=== PATIENT | male | born 1940 | race Two or more races ===

== ENCOUNTER 2020-09-20 00:36 | Inpatient (IN) | payer MEDICARE, OTHER ==
[2020-09-20] MEDS ORDERED: NITROGLYCERIN SL TABS 0.4 MG TAB SUBLINGUAL PRN ×2 (01:17→07:33)
[2020-09-20] MEDS ORDERED: MORPHINE SULFATE 4 MG/ML SYRINGE IV PRN (01:17)
[2020-09-20] MEDS ORDERED: ASPIRIN 81 MG PO STA (01:17)
[2020-09-20] MEDS ORDERED: IPRATROPIUM-ALBUTEROL 3 ML NEB INHALATION PRN (01:19)
[2020-09-20] MEDS ORDERED: HEPARIN SOD,PORK IN 0.45% NACL 25,000 UNIT in 0.45% NACL 1 250ML.BAG IV SCH (01:30)
[2020-09-20] MEDS ORDERED: AZITHROMYCIN 500 MG in SODIUM CHLORIDE 0.9% 250 ML IVPB ONE (01:30)
--- NOTE | 2020-09-20 01:42 | ED ---
Recheck HPI - General Chief Complaint: Chest Pain Stated Complaint: Chest Pain Time Seen by Provider: 09/20/20 00:38 Source: patient, EMS, old records reviewed Mode of arrival: EMS Limitations: no limitations - History of Present Illness Initial Comments: This is an 80-year-old male DF for evaluation patient Dese as a recheck and reevaluation in his transfer patient, patient presenting for increasing troponin positive pneumonia. On arrival patient has no complaints no chest pain no shortness of breath MD Complaint: abnormal lab (Elevated troponin) -: hour(s) Returns Today for: Called Because of Abnormal Lab/Test Symptoms Since Prior Visit: worsening pain (No new pain) Associated Symptoms: none Treatments Prior to Arrival: other (Patient also told he has pneumonia) - Related Data Allergies Allergy/AdvReac Type Severity Reaction Status Date / Time No Known Allergies Allergy Verified 09/20/20 01:08 Review of Systems ROS Statement: Those systems with pertinent positive or pertinent negative responses have been documented in the HPI. ROS Other: All systems not noted in ROS Statement are negative. Past Medical History Past Medical History: No Reported History Past Surgical History: No Surgical Hx Reported Past Psychological History: No Psychological Hx Reported Smoking Status: Never smoker Past Alcohol Use History: None Reported Past Drug Use History: None Reported General Exam Limitations: no limitations General appearance: alert, in no apparent distress Head exam: Present: atraumatic, normocephalic, normal inspection Eye exam: Present: normal appearance, PERRL, EOMI. Absent: scleral icterus, conjunctival injection, periorbital swelling ENT exam: Present: normal exam, mucous membranes moist Neck exam: Present: normal inspection. Absent: tenderness, meningismus, lymphadenopathy Respiratory exam: Present: normal lung sounds bilaterally. Absent: respiratory distress, wheezes, rales, rhonchi, stridor Cardiovascular Exam: Present: regular rate, normal rhythm, normal heart sounds. Absent: systolic murmur, diastolic murmur, rubs, gallop, clicks GI/Abdominal exam: Present: soft, normal bowel sounds. Absent: distended, tenderness, guarding, rebound, rigid Extremities exam: Present: normal inspection, full ROM, normal capillary refill. Absent: tenderness, pedal edema, joint swelling, calf tenderness Back exam: Present: normal inspection Neurological exam: Present: alert, oriented X3, CN II-XII intact Psychiatric exam: Present: normal affect, normal mood Skin exam: Present: warm, dry, intact, normal color. Absent: rash Course Vital Signs 09/20/20 01:01 Temperature 98.0 F Pulse Rate 76 Respiratory 16 Rate Blood Pressure 144/76 O2 Sat by Pulse 100 Oximetry - Reevaluation(s) Reevaluation #1: 09/20/20 01:53 Medical records reviewed Reevaluation #2: 09/20/20 01:53 Spoke with patient regarding plan of care Medical Decision Making - Medical Decision Making 80 male DF for evaluation patient Dese for evaluation of not feeling well. Patient is diagnosis of pneumonia and has elevated troponin, will admit for cardiology to evaluate and treatment of pneumonia - EKG Data -: EKG Interpreted by Me (EKG is sinus rhythm 65 AR 182 QRS 76 QTC 453) Disposition Clinical Impression: Acute non-ST elevation myocardial infarction (NSTEMI), Community acquired shanika terial pneumonia Disposition: ADMITTED IP TO THIS HOSP Condition: Fair Is patient prescribed a controlled substance at d/c from ED?: No
--- NOTE | 2020-09-20 04:05 | P.HPIM ---
History of Present Illness H&P Date: 09/20/20 Chief Complaint: Atypical chest pain 80-year-old male with history of BPH Patient transferred from another facility for cardiac workup. Patient was working in his yard today when suddenly felt chest pressure he describes it as heaviness retrosternal radiating to both sides happen suddenly and then kept getting worse to the point that he had stopped working and rest he called his sister who suggested that he takes 4 tabs of aspirin and seeks medical attention. He felt breathing with heavy during that however he denies any wheezing denies any fevers or chills denies any associated dizziness lightheadedness or palpitations denies any profuse sweating nausea or vomiting. He describes chronic sporadic cough with nothing suggestive of upper respiratory infection symptoms patient also denies any GI bleeding. He does report some ongoing trouble with his urine which she thinks is due to his history of prostate hyperplasia. At the other facility initial EKG showed normal sinus rhythm and initial blood work showing elevated ESR, potassium of 3.2 and hemoglobin of 11.9, again he denies any GI bleeding Initial troponins were 0.03 and then follow-up went up to 0.35 Imaging of the chest showed possible infiltrates in the lower aspect of the right upper lobe Currently patient feels comfortable denies any ongoing chest pain he denies any cardiac workup in the past denies any episodes suggestive of angina or exertional dyspnea Review of Systems Pertinent positives as noted in HPI. All other systems were reviewed and are negative Past Medical History Past Medical History: No Reported History Additional Past Medical History / Comment(s): BPH Past Surgical History: No Surgical Hx Reported Past Psychological History: No Psychological Hx Reported Smoking Status: Never smoker Past Alcohol Use History: None Reported Past Drug Use History: None Reported - Past Family History Family Additional Family Medical History / Comment(s): Father with heart disease Medications and Allergies Allergies Allergy/AdvReac Type Severity Reaction Status Date / Time No Known Allergies Allergy Verified 09/20/20 01:08 Physical Exam Vitals: Vital Signs Temp Pulse Resp BP Pulse Ox 09/20/20 01:01 98.0 F 76 16 144/76 100 Intake and Output 09/19/20 09/19/20 09/20/20 14:59 22:59 06:59 Other: Weight 61.235 kg Constitutional: No acute distress, conversant, pleasant Eyes: Anicteric sclerae, moist conjunctiva, Pupils equal round reactive to light ENMT: NC/AT Oropharynx clear, no erythema, or exudates Neck: Supple, FROM, no masses, or JVD No carotid bruits No thyromegaly Lungs: Clear to auscultation Clear to percussion Normal respiratory effort, no accessory muscle use Cardiovascular: Heart regular in rate and rhythm, No murmurs, gallops, or rubs No peripheral edema Abdominal: Soft Nontender, no guarding, rebound or rigidity Abdomen moving with respiration Normoactive bowel sounds No hepatomegaly, No splenomegaly No palpable mass No abdominal wall hernia noted Skin: Normal temperature, tone, texture, turgor No induration No subcutaneous nodules No rash, lesions No ulcers Extremities: No digital cyanosis No clubbing Pedal pulses intact and symmetrical Radial pulses intact and symmetrical No calf tenderness Psychiatric: Alert and oriented to person, place and time Appropriate affect fair judgement Neuro Muscles Strength 5/5 in all 4 extremities Sensation to light touch grossly present throughout Cranial nerves II-XII grossly intact No focal sensory deficits Lymphatics: no palpable cervical or supraclavicular , or inguinal lymph nodes Assessment and Plan Assessment: NSTEMI Cardiology consult telecommunications network engineer Trend troponins Patient started on heparin drip Aspirin, nitro Atorvastatin Check lipid profile Monitor vital signs Pain control with opiates if needed Resume all medications for BPH, Flomax Discontinue antibiotics patient has no leukocytosis no fever he denies any symptoms suggestive of upper respiratory infection Computed tomography scan suggested some incidental finding of 8 mm nodules in the lower part of the right upper lobe consider outpatient follow-up CODE STATUS: Full code DVT prophylaxis: On heparin drip Discussed with: Patient, ER, RN Anticipated length of stay < than [address]: home A total of 65 minutes was spent on the care of this complex patient more than 50% of the time was spent in counseling and care coordination.
[2020-09-20 05:28] LABS: Basophils # (A) 0.1 k/uL (0-0.2); Basophils % (A) 1 %; Eosinophils # (A) 0.3 k/uL (0-0.7); Eosinophils % (A) 5 %; HCT 33.5 % (39.0-53.0); HGB 11.4 gm/dL (13.0-17.5); Lymphocytes # (A) 1.7 k/uL (1.0-4.8); Lymphocytes % (A) 27 %; MCH 29.9 pg (25.0-35.0); MCHC 33.9 g/dL (31.0-37.0); MCV 88.2 fL (80.0-100.0); Mean Platelet Volume 8.2; Monocytes # (A) 0.5 k/uL (0-1.0); Monocytes % (A) 8 %; Neutrophils # (A) 3.7 k/uL (1.3-7.7); Neutrophils % (A) 58 %; Platelet Count 134 k/uL (150-450); RDW 12.9 % (11.5-15.5); WBC 6.4 k/uL (3.8-10.6)
[2020-09-20 05:58] LABS: ALT 15 U/L (4-49); AST 31 U/L (17-59); African American GFR (CKD) >90 (>60 ml/min/1.73 sqM); Albumin 3.1 g/dL (3.5-5.0); Alkaline Phosphatase 76 U/L (38-126); Anion Gap 3 mmol/L; Blood Urea Nitrogen 19 mg/dL (9-20); Calcium 8.8 mg/dL (8.4-10.2); Carbon Dioxide 27 mmol/L (22-30); Chloride 111 mmol/L (98-107); Glucose 90 mg/dL (74-99); Non-African American GFR(CKD) 85 (>60 ml/min/1.73 sqM); Potassium 3.9 mmol/L (3.5-5.1); Sodium 141 mmol/L (137-145); Total Bilirubin 0.2 mg/dL (0.2-1.3)
[2020-09-20] MEDS ORDERED: ALPRAZolam 0.25 MG TAB PO PRN (07:33)
[2020-09-20] MEDS ORDERED: SODIUM CHLORIDE 0.9% 1,000 ML in EMPTY BAG 1 BAG IV ONE (07:33)
[2020-09-20] MEDS ORDERED: ASPIRIN 325 MG TAB PO STA (07:33)
[2020-09-20] MEDS ORDERED: ATORVASTATIN 80 MG TAB PO STA (07:33)
[2020-09-20] MEDS: METOPROLOL TARTRATE 25 MG TAB PO SCH ×2 (08:05→20:22)
[2020-09-20] MEDS ORDERED: ATORVASTATIN 40 MG TAB PO SCH (09:00)
[2020-09-20] MEDS ORDERED: LIDOCAINE 1% INJ 10MG/ML (20 ML MDV) ONE (10:28)
[2020-09-20] MEDS ORDERED: VERAPAMIL 2.5 MG/ML 2 ML AMP ONE (10:28)
[2020-09-20] MEDS ORDERED: HEPARIN SODIUM 1,000 UN/ML (10ML VL) ONE (10:29)
[2020-09-20] MEDS ORDERED: IV FLUID CONTINUATION 1,000 ML IV ONE (10:32)
[2020-09-20 10:35] VITALS: BMI 21.5
[2020-09-20] MEDS ORDERED: MIDAZOLAM 2 MG/2 ML VIAL IVP ONE (10:46)
[2020-09-20] MEDS ORDERED: LIDOCAINE 1% INJ 10MG/ML (20 ML MDV) SQ ONE (10:52)
[2020-09-20] MEDS: VERAPAMIL SYRINGE (5 MG/10 ML) INTRAARTER ONE ×2 (11:00→11:53)
[2020-09-20] MEDS ORDERED: HYDROmorphone 0.5 MG/0.5 ML SYRINGE IVP ONE ×3 (11:29→12:05)
[2020-09-20] MEDS ORDERED: IOPAMIDOL-370 100ML BTL INJ ONE ×2 (11:30→11:52)
[2020-09-20] MEDS: NITROGLYCERIN 1000MCG/10ML SYRINGE INTRACORON ONE ×2 (11:36→11:52)
--- NOTE | 2020-09-20 11:38 | ECHOF ---
Referral Reason:Elevated Troponin MEASUREMENTS -------- HEIGHT: 167.6 cm WEIGHT: 60.3 kg BP: 111/59 RVIDd: 3.3 cm (< 3.3) IVSd: 1.0 cm (0.6 - 1.1) LVIDd: 4.6 cm (3.9 - 5.3) LVPWd: 1.2 cm (0.6 - 1.1) IVSs: 1.5 cm LVIDs: 3.1 cm LVPWs: 1.5 cm LA Diam: 3.5 cm (2.7 - 3.8) LAESV Index (A-L): 31.55 ml/m Ao Diam: 3.2 cm (2.0 - 3.7) AV Cusp: 1.7 cm (1.5 - 2.6) MV EXCURSION: 13.341 mm (> 18.000) MV EF SLOPE: 60 mm/s (70 - 150) EPSS: 0.7 cm MV E Xavier: 1.32 m/s MV DecT: 320 ms MV A Xavier: 1.30 m/s MV E/A Ratio: 1.02 RAP: 5.00 mmHg RVSP: 24.33 mmHg TAPSE: 19.91 mm FINDINGS -------- Resting bradycardia (HR<60bpm). This was a technically good study. The left ventricular size is normal. There is borderline concentric left ventricular hypertrophy. Overall left ventricular systolic function is normal with, an EF between 60 - 65 %. The right ventricle is mildly enlarged. LA is midly dilated 29-33ml/m2. The right atrium is normal in size. Interatrial and interventricular septum intact. There is mild aortic valve sclerosis. Mild mitral regurgitation is present. Mild tricuspid regurgitation present. Right ventricular systolic pressure is normal at < 35 mmHg. There is no pulmonic regurgitation present. The aortic root size is normal. Normal inferior vena cava with normal inspiratory collapse consistent with estimated right atrial pre ssure of 5 mmHg. There is no pericardial effusion. CONCLUSIONS -------- 1. The left ventricular size is normal. 2. There is borderline concentric left ventricular hypertrophy. 3. Overall left ventricular systolic function is normal with, an EF between 60 - 65 %. 4. The right ventricle is mildly enlarged. 5. LA is midly dilated 29-33ml/m2. 6. There is mild aortic valve sclerosis. 7. Mild mitral regurgitation is present. 8. Mild tricuspid regurgitation present. 9. There is no pericardial effusion. CERTIFIED BENCH JEWELER TECHNICIAN: Dulce Kamara RDCS
[2020-09-20] MEDS ORDERED: CLOPIDOGREL 75 MG TAB ONE (11:57)
--- NOTE | 2020-09-20 12:01 | CONS ---
CONSULTATION HISTORY: This is an 80-year-old gentleman who was transferred from [facility]. Apparently he was doing some physical work outside which patient describes as very light the artwork, when he had some heaviness and pressure in the chest radiating to both upper extremities. He then stopped work, went called his sister, advised to take 4 aspirins and he went to the emergency room. Initial troponin was elevated and he was transferred here. He is comfortable resting at the time of my evaluation, has no chest pain. His troponin has gone up suggestive of non-ST elevation [place]. EKG does not reveal any significant changes. He does not take any medications on a regular basis. Has no significant medical problems on questioning. He is resting comfortably without symptoms. PAST MEDICAL HISTORY: Remarkable for some sporadic cough and URI type symptoms, but no diabetes, hypertension, myocardial infarction or CVA. SOCIAL HISTORY: History patient is not a smoker. Does not consume alcohol. ALLERGIES: None. MEDICATIONS: No prescription medications. PHYSICAL EXAMINATION: On examination, blood pressure is 118/70, pulse rate is about 80 per minute regular HEENT unremarkable. Fundus was not examined by me. Neck is supple. There is no JVD. I do not hear a carotid bruit. Heart exam reveals S1, S2 with a 1/6 ejection systolic murmur at the aortic area. Lungs are clear. Abdomen is soft, nontender. Lower extremities reveal normal pulses. No edema. Central nervous system is normal. EKG revealed a sinus rhythm, no acute changes. LABORATORY DATA: Suggests elevated troponin up to 1.4 and subsequent one at 1.2. Other labs are acceptable. Potassium was low but has been supplemented. IMPRESSION: 1. Acute non ST elevation [place]. 2. No evidence of any other significant risk factors. RECOMMENDATIONS: I recommend that we continue IV heparin, add a beta renato, reduce the aspirin to 81 mg daily, perform echocardiogram and proceed with cardiac catheterization. The rationale, risks, benefits, options related to cardiac cath were explained to the patient. He understands all details and wishes to proceed with the procedure which will be performed today. MMODL / IJN: [id number] /
[2020-09-20] MEDS ORDERED: CLOPIDOGREL 75 MG TAB PO ONE (12:02)
--- NOTE | 2020-09-20 12:50 | CC ---
CARDIAC CATHETERIZATION REPORT DATE OF SERVICE: 09/20/2020. PROCEDURE: 1. Left heart catheterization and coronary angiography. 2. PTCA and stenting of proximal and mid circumflex with a drug-eluting stent. PERFORMED BY: Dr. Brynn Sweeney. SEDATION: Moderate conscious sedation time was 70 minutes. Patient was administered Versed. Oxygen saturation, hemodynamics and EKG were monitored closely. CLINICAL INFORMATION: Mr. Hira Anderson is 80-year-old gentleman without significant past medical history. He came into the hospital with exertional chest pain without significant EKG changes, but had troponin elevation. Clinical picture was that of non-ST elevation [place]. Because of ongoing episodes of chest tightness, I recommended coronary angiography. Risks, benefits, options, rationale were explained. There was no family available and patient did not wish that I should call any family member. PROCEDURE NOTE: Under local anesthesia and strict aseptic precautions, a 6-Welsh introducer was placed in the right radial artery. The brachial and axillary artery area had a lot of tortuosity and had difficulty getting across in the axillary area. However after straightening the arm I was able to get beyond and I performed coronary angiography as well as checked LV pressures using the right Harish catheter and a right standard right Harish catheter and a 3.5 left Harish catheter. Following this, I noted the patient had a significant lesion in the proximal and mid circumflex and I performed PCI of these 2 lesions uneventfully. The sheath was taken out and patient was sent to the room in a stable condition after applying a TR band with saturation of the fingers of the right hand of 94%. Results were discussed with the patient, but there were no other family members available and we could not reach his son whose phone number was finally available. CARDIAC CATHETERIZATION FINDINGS: The left ventricular end-diastolic pressure was about 10 mmHg without any gradient across aortic valve. CORONARY ANGIOGRAPHY FINDINGS: RIGHT CORONARY ARTERY: Subselective injection was performed however injections were decent. There is no significant lesion in the RCA. There is a mid portion of about 30- 40 percent but ostium of the RCA is free of significant disease and distally bifurcates into a large PDA and PLV, both of which have minor irregularities. Mid RCA therefore has a 35% to 40% lesion which does not appear to be significant in multiple views, although the injections were subselective. LEFT MAIN CORONARY ARTERY: This is a long vessel free of significant disease. Distally, there is about a 15-20 percent narrowing and it bifurcates into LAD and circumflex. LEFT ANTERIOR DESCENDING CORONARY ARTERY: Good caliber vessel gives off a large diagonal branch proximally, several septal branches runs all the way to the apex supplying a sizable amount of myocardium. There is 30-40 percent mild irregularities noted throughout the LAD system. LEFT POSTERIOR CIRCUMFLEX CORONARY ARTERY: Nondominant vessel but large in caliber and distribution. Very proximally there is a 90% stenosis and again midportion there is another 90% stenosis and it gives off an obtuse marginal branch which is small. Distal posterolateral branch has minor irregularities no significant disease. Circumflex therefore has 290% stenosis and appeared to be the culprit lesions. Left ventriculogram was not performed. FINAL IMPRESSION: This patient has significant disease involving the nondominant circumflex the proximal and midportion. Circumflex is a large distribution vessel. There are two 90% lesions. LAD has about of 35-40 percent narrowing in the midportion. The RCA subselectively injected but has a 40% lesion in the midportion. Normal filling pressures. No gradient across aortic valve of significance. RECOMMENDATIONS: I recommended PCI of circumflex and proceeded to perform this in the same setting. PCI PROCEDURE DETAILS: The patient received a total of 4000 units of heparin and ACT was 293. A JL3.5 guide catheter was used to cannulate the left coronary artery. A run-through wire was used to cross the lesion. Predilatation was performed with a 2.5 caliber 12 mm NC Trek balloon. I deployed a 12 mm long 2.5 caliber Xience stent in the distal lesion. Excellent angiographic result was achieved. The side branch which came off was a small obtuse marginal branch, but the flow was preserved. The proximal circumflex also had a subtotally occluded small obtuse marginal coming off from the lesion. I deployed a 3.5, 12 mm long Xience stent at 12-13 atmospheres and then post dilated the midportion with an 8 mm long 3.75 caliber NC Trek balloon. Excellent angiographic result was achieved, but the small side branch occluded. Patient had transient chest pain. No hemodynamics issues or EKG changes. Angiographically, the result was excellent with a small side branch occlusion of the proximal lesion, but the distal lesion side branch was very well preserved. Results were discussed with the patient. No family available. He received heparin and 600 mg of Plavix was given. Patient was sent to the room in a stable condition. After the TR band removal saturation the right hand was about 98%. Results were discussed with the patient. No family available. Excellent angiographic result without complication was achieved and 2 drug-eluting stents in the proximal and mid circumflex were deployed without any complication. MMMELISSAL / MARTHAN: [id number] /
[2020-09-20] MEDS: SODIUM CHLORIDE 0.9% 1,000 ML IV SCH (13:03)
[2020-09-20] MEDS: LOSARTAN 50 MG TAB PO SCH (20:22)
[2020-09-20] MEDS: ALPRAZolam 0.5 MG TAB PO PRN (21:00)
[2020-09-20] MEDS ORDERED: AZITHROMYCIN 500 MG in SODIUM CHLORIDE 0.9% 250 ML IVPB SCH (21:00)
[2020-09-21] MEDS: SODIUM CHLORIDE 0.9% 1,000 ML IV SCH (02:00)
[2020-09-21] MEDS: ALPRAZolam 0.5 MG TAB PO PRN (04:38)
[2020-09-21] MEDS ORDERED: HEPARIN SODIUM,PORCINE 10,000 UNIT in SODIUM CHLORIDE 0.9% 1,000 ML IRRIGATION PRN (07:00)
[2020-09-21] MEDS ORDERED: HEPARIN SODIUM,PORCINE 2,500 UNIT in SODIUM CHLORIDE 0.9% 250 ML IRRIGATION PRN (07:00)
[2020-09-21 07:50] LABS: Basophils % (A) 0 %; Eosinophils # (A) 0.2 k/uL (0-0.7); Eosinophils % (A) 2 %; HCT 32.9 % (39.0-53.0); HGB 11.1 gm/dL (13.0-17.5); Lymphocytes # (A) 1.3 k/uL (1.0-4.8); Lymphocytes % (A) 14 %; MCH 30.2 pg (25.0-35.0); MCHC 33.8 g/dL (31.0-37.0); MCV 89.2 fL (80.0-100.0); Monocytes # (A) 0.6 k/uL (0-1.0); Monocytes % (A) 7 %; Neutrophils # (A) 6.5 k/uL (1.3-7.7); Neutrophils % (A) 75 %; Platelet Count 144 k/uL (150-450); RBC 3.69 m/uL (4.30-5.90); RDW 13.2 % (11.5-15.5); WBC 8.7 k/uL (3.8-10.6)
[2020-09-21 08:28] LABS: African American GFR (CKD) >90 (>60 ml/min/1.73 sqM); Anion Gap 4 mmol/L; Blood Urea Nitrogen 21 mg/dL (9-20); Calcium 8.8 mg/dL (8.4-10.2); Carbon Dioxide 25 mmol/L (22-30); Chloride 110 mmol/L (98-107); Glucose 100 mg/dL (74-99); Non-African American GFR(CKD) 85 (>60 ml/min/1.73 sqM); Potassium 3.8 mmol/L (3.5-5.1); Sodium 139 mmol/L (137-145)
[2020-09-21] MEDS ORDERED: POTASSIUM CHLORIDE ER 20 MEQ TAB.ER PO STA (08:37)
[2020-09-21] MEDS: PANTOPRAZOLE 40 MG TABLET PO SCH (08:55)
[2020-09-21] MEDS: CLOPIDOGREL 75 MG TAB PO SCH (08:55)
[2020-09-21] MEDS: METOPROLOL TARTRATE 25 MG TAB PO SCH ×2 (08:55→19:58)
[2020-09-21] MEDS: ATORVASTATIN 80 MG TAB PO SCH (08:55)
[2020-09-21] MEDS: ASPIRIN 81 MG PO SCH (08:56)
[2020-09-21] MEDS ORDERED: ASPIRIN 325 MG TAB PO SCH (09:00)
[2020-09-21 12:39] LABS: Chol/HDL Ratio 4.66
--- NOTE | 2020-09-21 14:09 | P.PN ---
Subjective Progress Note Date: 09/21/20 Patient is doing well today. He was up walking in his room when I saw him. He does not have any complaints. Objective - Vital Signs Vital signs: Vital Signs Temp 98 F 09/21/20 12:00 Pulse 65 09/21/20 12:00 Resp 16 09/21/20 12:00 BP 100/44 09/21/20 12:00 Pulse Ox 99 09/21/20 12:00 Intake & Output 09/20/20 09/21/20 09/21/20 18:59 06:59 18:59 Intake Total 960.579 240 220 Output Total 400 Balance 560.579 240 220 Weight 60.5 kg 60.4 kg Intake: IV 150 Intake, IV Titration 50.579 Amount Heparin Sod,Pork in 0.45% 50.579 NaCl 25,000 unit In 0.45 % NaCl 1 250ml.bag @ 12 UNITS/KG/HR 7.348 mls/hr IV .Q24H NIXON Rx#: [id number] Oral 760 240 220 Output: Urine 400 Other: Voiding Method Toilet Toilet Toilet # Voids 1 4 3 - Exam General: The patient is awake and alert, in no distress Eye: there is normal conjunctiva bilaterally. Neck: The neck is supple, there is no JVD. Cardiovascular: Normal S1-S2, no S3-S4, no murmurs. Respiratory: Lungs clear to auscultation bilaterally Gastrointestinal: Abdomen is soft, nontender Musculoskeletal: There is no pedal edema. Neurological:. Speech is normal. Skin: Skin is warm and dry - Labs CBC & Chem 7: 09/21/20 07:07 09/21/20 07:07 Labs: Abnormal Lab Results - Last 24 Hours (Table) 09/20/20 09/21/20 09/21/20 Range/Units 13:33 07:07 07:07 RBC 3.69 L (4.30-5.90) m/uL Hgb 11.1 L (13.0-17.5) gm/dL Hct 32.9 L (39.0-53.0) % Plt Count 144 L (150-450) k/uL APTT 50.4 H (22.0-30.0) sec Chloride (98-107) mmol/L BUN (9-20) mg/dL Glucose (74-99) mg/dL HDL Cholesterol 32.0 L (40.0-60.0) mg/dL 09/21/20 Range/Units 07:07 RBC (4.30-5.90) m/uL Hgb (13.0-17.5) gm/dL Hct (39.0-53.0) % Plt Count (150-450) k/uL APTT (22.0-30.0) sec Chloride 110 H (98-107) mmol/L BUN 21 H (9-20) mg/dL Glucose 100 H (74-99) mg/dL HDL Cholesterol (40.0-60.0) mg/dL Assessment and Plan Assessment: This is a 80-year-old male with past medical history noted below who presented to the emergency room with chest pressure and pain after doing some yard work. Patient was evaluated in the ER and admitted to the hospital for further management of his medical problems noted below. 1. Non-ST elevation [place], patient treated with optimal medical management. He was seen and evaluated by cardiology. Underwent left heart catheterization with successful 2 stents placement. Continue aspirin and Plavix. Echocardiogram showed preserved ejection fraction with no significant valvular abnormalities 2. Hyperlipidemia, total cholesterol 149, LDL 99. started on Lipitor. 3. Essential hypertension, blood pressure well controlled. Home dose of hydrochlorothiazide was discontinued. 4. Lung nodules: Noted in the right upper lobe on outside hospital computed tomography scan. 8 mm. Follow-up outpatient.
[2020-09-21] MEDS: LOSARTAN 50 MG TAB PO SCH (19:58)
--- NOTE | 2020-09-21 20:12 | PN ---
PROGRESS NOTE DATE OF SERVICE: 09/21/2020. HISTORY: Mr. Anderson is doing well. He had stenting of circumflex vessel performed in 2 areas. No symptoms of significance. Right radial site are clean and dry. Vital signs stable. Complains of some epigastric burning. I will start him on a Protonix. PHYSICAL EXAM: S1-S2 heard normally. Short systolic murmur noted. Lungs are clear. Abdomen and lower extremity exam unchanged. PLAN: Continue current medications, increase activity, add Protonix. Possible discharge tomorrow. MMODL / IJN: [id number] /
[2020-09-22] MEDS: PANTOPRAZOLE 40 MG TABLET PO SCH (06:22)
[2020-09-22] MEDS: ASPIRIN 81 MG PO SCH (08:37)
[2020-09-22] MEDS: CLOPIDOGREL 75 MG TAB PO SCH (08:37)
[2020-09-22] MEDS: METOPROLOL TARTRATE 25 MG TAB PO SCH (08:37)
[2020-09-22] MEDS: ATORVASTATIN 80 MG TAB PO SCH (08:37)
[2020-09-22 08:45] VITALS: RESP 18
[2020-09-22 11:41] VITALS: BP 107/64; PULSE 57; TEMP 98
--- NOTE | 2020-09-22 13:39 | P.DS ---
Providers Date of admission: 09/20/20 01:17 Expected date of discharge: 09/22/20 Attending physician: Denis Umaña MD Consults: 09/20/20 01:17 Consult Physician Urgent Consulting Provider: Ashly Palacios Consult Reason/Comments: nstemi Do you want consulting provider notified?: Yes Primary care physician: Stated None Hospital Course: This is a 80-year-old male with past medical history noted below who presented to the emergency room with chest pressure and pain after doing some yard work. Patient was evaluated in the ER and admitted to the hospital for further management of his medical problems noted below. 1. Non-ST elevation RI, patient treated with optimal medical management. He was seen and evaluated by cardiology. Underwent left heart catheterization with successful 2 stents placement. Continue aspirin and Plavix. Echocardiogram showed preserved ejection fraction with no significant valvular abnormalities 2. Hyperlipidemia, total cholesterol 149, LDL 99. started on Lipitor. 3. Essential hypertension, blood pressure well controlled. Home dose of hydrochlorothiazide was discontinued. 4. Lung nodules: Noted in the right upper lobe on outside hospital computed tomography scan. 8 mm. Follow-up outpatient. Patient will be discharged home in a stable condition. For further details about this hospitalization please refer to the electronic chart. Time spent on discharge > 30 minutes including counseling and coordination of care Patient Condition at Discharge: Fair Plan - Discharge Summary Discharge Rx Participant: No New Discharge Prescriptions: New Losartan [Cozaar] 50 mg PO HS #30 tab Atorvastatin [Lipitor] 40 mg PO HS #30 tablet Aspirin 81 mg PO DAILY #30 chew Metoprolol Tartrate [Lopressor] 25 mg PO BID #60 tab Nitroglycerin Sl Tabs [Nitrostat] 0.4 mg SUBLINGUAL Q5M PRN #3 tab PRN Reason: Chest Pain Clopidogrel [Plavix] 75 mg PO DAILY #30 tab Continue Multivit-Mins/Iron/Folic/Lycop [Centrum Men's Tablet] 1 tab PO DAILY Solifenacin Succinate [Vesicare] 10 mg PO DAILY Latanoprost [Xalatan 0.005%] 1 drop BOTH EYES HS Brimonidine Tartrate/Timolol [Combigan 0.2%-0.5% Eye Drops] 1 drop BOTH EYES BID Mesal/Menth/Camph/Siberian Fir [Vicks Vapoinhaler] 1 spray NASAL DAILY PRN PRN Reason: Congestion Alfuzosin HCl [Alfuzosin HCl ER] 10 mg PO DAILY Tamsulosin [Flomax] 0.4 mg PO HS Melatonin 3 mg PO HS Discontinued Aspirin 324 mg PO ONCE PRN PRN Reason: Chest Pain Hydrochlorothiazide [hydroCHLOROthiazide] 12.5 mg PO DAILY Discharge Medication List Alfuzosin HCl [Alfuzosin HCl ER] 10 mg PO DAILY 09/20/20 [History] Brimonidine Tartrate/Timolol [Combigan 0.2%-0.5% Eye Drops] 1 drop BOTH EYES BID 09/20/20 [History] Latanoprost [Xalatan 0.005%] 1 drop BOTH EYES HS 09/20/20 [History] Melatonin 3 mg PO HS 09/20/20 [History] Mesal/Menth/Camph/Siberian Fir [Dave Vapoinhaler] 1 spray NASAL DAILY PRN 09/20/20 [History] Multivit-Mins/Iron/Folic/Lycop [Centrum Men's Tablet] 1 tab PO DAILY 09/20/20 [History] Solifenacin Succinate [Vesicare] 10 mg PO DAILY 09/20/20 [History] Tamsulosin [Flomax] 0.4 mg PO HS 09/20/20 [History] Aspirin 81 mg PO DAILY #30 chew 09/22/20 [Rx] Atorvastatin [Lipitor] 40 mg PO HS #30 tablet 09/22/20 [Rx] Clopidogrel [Plavix] 75 mg PO DAILY #30 tab 09/22/20 [Rx] Losartan [Cozaar] 50 mg PO HS #30 tab 09/22/20 [Rx] Metoprolol Tartrate [Lopressor] 25 mg PO BID #60 tab 09/22/20 [Rx] Nitroglycerin Sl Tabs [Nitrostat] 0.4 mg SUBLINGUAL Q5M PRN #3 tab 09/22/20 [Rx] Follow up Appointment(s)/Referral(s): Whit Sweeney MD [STAFF PHYSICIAN] - 1 Week (Ensure office is aware that this is a discharge following a heart catheterization and hospital stay.) None,Stated [Primary Care Provider] - 1 Week Patient Instructions/Handouts: *[facility]gery [facility] - After Heart Catheterization - Cartridge Assembler Instructions Discharge Disposition: HOME SELF-CARE
--- NOTE | 2020-09-22 15:05 | PN ---
PROGRESS NOTE This gentleman presented with unstable angina/non ST elevation MN, underwent stenting of circumflex, doing very well post procedure. Right radial site is clean and dry. No chest pain or shortness of breath. EXAMINATION: Vitals are stable, no JVD. S1, S2 heard normally. Lungs are clear. Abdomen and lower extremity exam unchanged. PLAN: Plan is to increase activity, discharge home. I will see him in the office in 1-2 weeks. Advised to continue all medications, particularly dual antiplatelet therapy. MMODL / IJN: [id number] /
== END 2020-09-22 15:00 | disposition home or self-care (01) | DRG 247 ==
LOC: EC 00:36 → 3SCARD 01:17
PROVIDERS: ADMIT Internal Medicine; ATTEND Internal Medicine
PROC: B2111ZZ Fluoroscopy of Multiple Coronary Arteries using Low Osmolar Contrast (ICD-10-PCS; principal; 2020-09-20 10:45)
PROC: 4A023N7 Measurement of Cardiac Sampling and Pressure, Left Heart, Percutaneous Approach (ICD-10-PCS; principal; 2020-09-20 10:45)
PROC: 027035Z Dilation of Coronary Artery, One Artery with Two Drug-eluting Intraluminal Devices, Percutaneous Approach (ICD-10-PCS; principal; 2020-09-20 10:45)
DX: I21.4 Non-ST elevation (NSTEMI) myocardial infarction (principal); D64.9 Anemia, unspecified; E78.5 Hyperlipidemia, unspecified; I10 Essential (primary) hypertension; N40.0 Benign prostatic hyperplasia without lower urinary tract symptoms; Z20.822 Contact with and (suspected) exposure to COVID-19; Z79.02 Long term (current) use of antithrombotics/antiplatelets; Z79.82 Long term (current) use of aspirin; R91.8 Other nonspecific abnormal finding of lung field; Z82.49 Family history of ischemic heart disease and other diseases of the circulatory system
CPT/HCPCS: 80048; 80053; 80061; 84484; 85025; 85730; 87635; 93005; 93306; 93458; 96365; 99285

== ENCOUNTER 2023-10-04 19:23 | Observation (INO) | payer MEDICARE, OTHER ==
--- NOTE | 2023-10-04 19:47 | ED ---
General Adult HPI - General Source: RN notes reviewed <Herberth Rodriguez - Last Filed: 10/04/23 19:51> <Justino Tyler - Last Filed: 10/04/23 23:09> - General Stated complaint: Chest Pain-Transfer Time Seen by Provider: 10/04/23 19:42 - History of Present Illness Initial comments: Quick note 83-year-old male with past medical history significant for coronary artery disease with multiple stents, A-fib on Eliquis, hypertension, hyperlipidemia presented to the ED with a chief complaint of chest pain for 2 days. States he is having intermittent episodes of pain in the middle of his chest lasting for few minutes. Pain does not radiate. No shortness of breath headaches or dizziness. Follows with of cardiology. Patient transferred from [facility] here for further evaluation. Currently denies having chest pain. (Herberth Rodriguez) - Related Data Home Medications Medication Instructions Recorded Confirmed Brimonidine Tartrate/Timolol 1 drop BOTH EYES BID 09/20/20 10/04/23 [Combigan 0.2%-0.5% Eye Drops] Latanoprost [Xalatan 0.005%] 1 drop BOTH EYES HS 09/20/20 10/04/23 Tamsulosin [Flomax] 0.4 mg PO HS 09/20/20 10/04/23 Apixaban [Eliquis] 2.5 mg PO BID 10/04/23 10/04/23 Atorvastatin [Lipitor] 80 mg PO HS 10/04/23 10/04/23 Furosemide [Lasix] 10 mg PO DAILY 10/04/23 10/04/23 Memantine [Namenda] 10 mg PO BID 10/04/23 10/04/23 Nystatin 1 applic TOPICAL BID PRN 10/04/23 10/04/23 Previous Rx's Medication Instructions Recorded Losartan [Cozaar] 50 mg PO HS #30 tab 09/22/20 Allergies Allergy/AdvReac Type Severity Reaction Status Date / Time No Known Allergies Allergy Verified 10/04/23 20:19 Review of Systems ROS Other: All systems not noted in ROS Statement are negative. <Herberth Rodriguez - Last Filed: 10/04/23 19:51> ROS Other: All systems not noted in ROS Statement are negative. <Justino Tyler - Last Filed: 10/04/23 23:09> ROS Statement: Those systems with pertinent positive or pertinent negative responses have been documented in the HPI. Past Medical History Past Medical History: No Reported History Additional Past Medical History / Comment(s): BPH History of Any Multi-Drug Resistant Organisms: None Reported Past Surgical History: No Surgical Hx Reported Past Anesthesia/Blood Transfusion Reactions: No Reported Reaction Past Psychological History: No Psychological Hx Reported Smoking Status: Never smoker Past Alcohol Use History: None Reported Past Drug Use History: None Reported - Past Family History Family Additional Family Medical History / Comment(s): Father with heart disease <Herberth Rodriguez - Last Filed: 10/04/23 19:51> General Exam <Herberth Rodriguez - Last Filed: 10/04/23 19:51> General appearance: alert, in no apparent distress Head exam: Present: atraumatic, normocephalic Eye exam: Present: normal appearance, PERRL ENT exam: Present: normal exam Neck exam: Present: normal inspection. Absent: tenderness, meningismus Respiratory exam: Present: normal lung sounds bilaterally. Absent: respiratory distress, wheezes Cardiovascular Exam: Present: regular rate, normal rhythm GI/Abdominal exam: Present: soft. Absent: distended, tenderness Extremities exam: Present: pedal edema Neurological exam: Present: alert, oriented X3 Psychiatric exam: Present: normal affect, normal mood Skin exam: Present: warm, dry, intact <Justino Tyler - Last Filed: 10/04/23 23:09> - General Exam Comments Initial Comments: Visual Physical Exam Vital signs reviewed General: Well-appearing, nontoxic, no acute distress. Head: Normocephalic, atraumatic Eyes: PERRLA, EOMI ENT: Airway patent Chest: Nonlabored breathing Skin: No visual rash, normal skin tone Neuro: Alert and oriented 3 Musculoskeletal: No gross abnormalities (Herberth Rodriguez) Course Vital Signs 10/04/23 19:47 Temperature 98.1 F Pulse Rate 60 Respiratory 18 Rate Blood Pressure 132/56 O2 Sat by Pulse 98 Oximetry Medical Decision Making <Herberth Rodriguez - Last Filed: 10/04/23 19:51> - Lab Data Result diagrams: 10/04/23 20:07 10/04/23 20:07 <Justino Tyler N - Last Filed: 10/04/23 23:09> - Medical Decision Making Quicknote portion performed. Signed Herberth Rodriguez PA-C (Herberth Rodriguez) Was pt. sent in by a medical professional or institution ([employer], URGENT CARE PHYSICIAN, urgent care, hospital, or half-way...) When possible be specific @ -Sent from outside hospital for cardiology consultation Did you speak to anyone other than the patient for history (EMS, parent, family, police, friend...)? What history was obtained from this source @ -No Did you review nursing and triage notes (agree or disagree)? Why? @ -I reviewed and agree with nursing and triage notes Were old charts reviewed (outside hosp., previous admission, EMS record, old EKG, old radiological studies, urgent care reports/EKG's, half-way records)? Report findings @ -No old charts were reviewed Differential Chest Pain: Stable Angina, Unstable Angina, STEMI, NSTEMI Aortic Dissection, Pneumothorax, Musculoskeletal, Esophageal Spasm GERD, Cholecystitis, Pancreatitis, Zoster, this is not meant to be an all-inclusive list. EKG interpreted by me (3pts min.). @ -[Sinus rhythm with a rate of 61, UT interval 187, QRS duration 84, QTc 426 X-rays interpreted by me (1pt min.). @ -None done CT interpreted by me (1pt min.). @ -None done U/S interpreted by me (1pt. min.). @ -None done What testing was considered but not performed or refused? (CT, X-rays, U/S, labs)? Why? @ -None What meds were considered but not given or refused? Why? @ -None Did you discuss the management of the patient with other professionals (professionals i.e. [employer], URGENT CARE PHYSICIAN, lab, RT, psych nurse, social media content specialist, brick chimney supervisor, teacher, traffic police officer, case sealer)? Give summary @ -No Was smoking cessation discussed for >3mins.? @ -No Was critical care preformed (if so, how long)? @ -No Were there social determinants of health that impacted care today? How? (Homeles sness, low income, unemployed, alcoholism, drug addiction, transportation, low edu. Level, literacy, decrease access to med. care, nursing home, rehab)? @ -No Was there de-escalation of care discussed even if they declined (Discuss DNR or withdrawal of care, Hospice)? DNR status @ -No What co-morbidities impacted this encounter? (DM, HTN, Smoking, COPD, CAD, Cancer, CVA, ARF, Chemo, Hep., AIDS, mental health diagnosis, sleep apnea, morbid obesity)? @ -Coronary artery disease Was patient admitted / discharged? Hospital course, mention meds given and route, prescriptions, significant lab abnormalities, going to OR and other pertinent info. @Patient transferred from outside hospital for evaluation of chest pain. He is chest pain-free at the time my evaluation. His EKG is sinus rhythm without ST segment elevation. Laboratory studies are repeated including CBC, CMP, troponin. Troponin continues to be negative. He will be observed, admitted to internal medicine with cardiology on consultation. Undiagnosed new problem with uncertain prognosis? @ -No Drug Therapy requiring intensive monitoring for toxicity (Heparin, Nitro, Insulin, Cardizem)? @ -No Were any procedures done? @ -No Diagnosis/symptom? @ -[Chest pain Acute, or Chronic, or Acute on Chronic? @ -Acute Uncomplicated (without systemic symptoms) or Complicated (systemic symptoms)? @ -[default Side effects of treatment? @ -No Exacerbation, Progression, or Severe Exacerbation? @ -No Poses a threat to life or bodily function? How? (Chest pain, USA, SC, pneumonia, PE, COPD, DKA, ARF, appy, cholecystitis, CVA, Diverticulitis, Homicidal, Suicidal, threat to staff... and all critical care pts) @, ACS (Justino Tyler) - Lab Data Lab Results 10/04/23 10/04/23 10/04/23 Range/Units 20:07 20:07 20:07 WBC 9.0 (3.8-10.6) k/uL RBC 3.96 L (4.30-5.90) m/uL Hgb 11.8 L (13.0-17.5) gm/dL Hct 37.1 L (39.0-53.0) % MCV 93.6 (80.0-100.0) fL MCH 29.7 (25.0-35.0) pg MCHC 31.7 (31.0-37.0) g/dL RDW 13.1 (11.5-15.5) % Plt Count 129 L (150-450) k/uL MPV 9.3 Neutrophils % 65 % Lymphocytes % 20 % Monocytes % 7 % Eosinophils % 5 % Basophils % 1 % Neutrophils # 5.9 (1.3-7.7) k/uL Lymphocytes # 1.8 (1.0-4.8) k/uL Monocytes # 0.7 (0-1.0) k/uL Eosinophils # 0.4 (0-0.7) k/uL Basophils # 0.1 (0-0.2) k/uL PT 11.4 (10.0-12.5) sec INR 1.0 (<1.2) APTT 28.3 (22.0-30.0) sec Sodium 143 (137-145) mmol/L Potassium 4.2 (3.5-5.1) mmol/L Chloride 115 H (98-107) mmol/L Carbon Dioxide 24 (22-30) mmol/L Anion Gap 4 mmol/L BUN 23 H (9-20) mg/dL Creatinine 0.94 (0.66-1.25) mg/dL Est GFR (CKD-EPI)AfAm 86 (>60 ml/min/1.73 sqM) Est GFR (CKD-EPI)NonAf 75 (>60 ml/min/1.73 sqM) Glucose 94 (74-99) mg/dL Calcium 8.0 L (8.4-10.2) mg/dL Magnesium 2.0 (1.6-2.3) mg/dL Total Bilirubin 0.4 (0.2-1.3) mg/dL AST 31 (17-59) U/L ALT 22 (4-49) U/L Alkaline Phosphatase 99 (38-126) U/L Troponin I (0.000-0.034) ng/mL Total Protein 6.3 (6.3-8.2) g/dL Albumin 3.3 L (3.5-5.0) g/dL 10/04/23 Range/Units 20:07 WBC (3.8-10.6) k/uL RBC (4.30-5.90) m/uL Hgb (13.0-17.5) gm/dL Hct (39.0-53.0) % MCV (80.0-100.0) fL MCH (25.0-35.0) pg MCHC (31.0-37.0) g/dL RDW (11.5-15.5) % Plt Count (150-450) k/uL MPV Neutrophils % % Lymphocytes % % Monocytes % % Eosinophils % % Basophils % % Neutrophils # (1.3-7.7) k/uL Lymphocytes # (1.0-4.8) k/uL Monocytes # (0-1.0) k/uL Eosinophils # (0-0.7) k/uL Basophils # (0-0.2) k/uL PT (10.0-12.5) sec INR (<1.2) APTT (22.0-30.0) sec Sodium (137-145) mmol/L Potassium (3.5-5.1) mmol/L Chloride (98-107) mmol/L Carbon Dioxide (22-30) mmol/L Anion Gap mmol/L BUN (9-20) mg/dL Creatinine (0.66-1.25) mg/dL Est GFR (CKD-EPI)AfAm (>60 ml/min/1.73 sqM) Est GFR (CKD-EPI)NonAf (>60 ml/min/1.73 sqM) Glucose (74-99) mg/dL Calcium (8.4-10.2) mg/dL Magnesium (1.6-2.3) mg/dL Total Bilirubin (0.2-1.3) mg/dL AST (17-59) U/L ALT (4-49) U/L Alkaline Phosphatase (38-126) U/L Troponin I <0.012 (0.000-0.034) ng/mL Total Protein (6.3-8.2) g/dL Albumin (3.5-5.0) g/dL Disposition <Herberth Rodriguez - Last Filed: 10/04/23 19:51> Is patient prescribed a controlled substance at d/c from ED?: No Time of Disposition: 23:09 <Justino Tyler - Last Filed: 10/04/23 23:09> Clinical Impression: Chest pain Disposition: ADMITTED IP TO THIS HOSP Condition: Stable Referrals: None,Stated [Primary Care Provider] - 1-2 days
[2023-10-04 20:22] LABS: Basophils # (A) 0.1 k/uL (0-0.2); Basophils % (A) 1 %; Eosinophils # (A) 0.4 k/uL (0-0.7); Eosinophils % (A) 5 %; HCT 37.1 % (39.0-53.0); HGB 11.8 gm/dL (13.0-17.5); Lymphocytes # (A) 1.8 k/uL (1.0-4.8); Lymphocytes % (A) 20 %; MCH 29.7 pg (25.0-35.0); MCHC 31.7 g/dL (31.0-37.0); MCV 93.6 fL (80.0-100.0); Mean Platelet Volume 9.3; Monocytes # (A) 0.7 k/uL (0-1.0); Monocytes % (A) 7 %; Neutrophils # (A) 5.9 k/uL (1.3-7.7); Neutrophils % (A) 65 %; Platelet Count 129 k/uL (150-450); RBC 3.96 m/uL (4.30-5.90); RDW 13.1 % (11.5-15.5)
[2023-10-04 20:38] LABS: ALT 22 U/L (4-49); AST 31 U/L (17-59); African American GFR (CKD) 86 (>60 ml/min/1.73 sqM); Albumin 3.3 g/dL (3.5-5.0); Alkaline Phosphatase 99 U/L (38-126); Anion Gap 4 mmol/L; Blood Urea Nitrogen 23 mg/dL (9-20); Carbon Dioxide 24 mmol/L (22-30); Chloride 115 mmol/L (98-107); Glucose 94 mg/dL (74-99); Non-African American GFR(CKD) 75 (>60 ml/min/1.73 sqM); Potassium 4.2 mmol/L (3.5-5.1); Sodium 143 mmol/L (137-145); Total Bilirubin 0.4 mg/dL (0.2-1.3); Total Protein 6.3 g/dL (6.3-8.2)
[2023-10-04 20:53] LABS: Partial Thromboplastin Time 28.3 sec (22.0-30.0); Prothrombin Time 11.4 sec (10.0-12.5)
[2023-10-04] MEDS ORDERED: ACETAMINOPHEN TAB 325 MG TAB PO PRN (23:05)
[2023-10-04] MEDS ORDERED: NALOXONE 0.4 MG/ML 1 ML VIAL IV PRN (23:05)
[2023-10-04] MEDS: SODIUM CHLORIDE 0.9% 1,000 ML IV SCH (23:21)
[2023-10-05 01:00] LABS: Appearance,Urine Cloudy (Clear); Bacteria,Urine Rare /hpf; Bilirubin,Urine Negative (Negative); Blood,Urine Negative (Negative); Color,Urine Light Yellow; Glucose,Urine (UA) Negative (Negative); Ketones,Urine Negative (Negative); Leukocyte Esterase,Urine Large (Negative); Mucus,Urine Rare /hpf; Nitrite,Urine Positive (Negative); Protein,Urine Negative (Negative); RBC,Urine 2 /hpf (0-5); Urobilinogen,Urine <2.0 mg/dL (<2.0); WBC,Urine >182 /hpf (0-5)
[2023-10-05] MEDS: APIXABAN 2.5 MG TABLET PO SCH (08:14)
[2023-10-05] MEDS: FUROSEMIDE 10 MG TAB PO SCH (08:14)
[2023-10-05] MEDS: MEMANTINE 10 MG TAB PO SCH (08:14)
[2023-10-05] MEDS ORDERED: NYSTATIN 100,000UNIT/GM CREAM 30 GM TUBE TOPICAL PRN (12:20)
[2023-10-05 12:49] VITALS: PULSE 75
--- NOTE | 2023-10-05 14:25 | P.HPIM ---
History of Present Illness 83-year-old male came with complaints of chest pain mild to moderate still has chest pain in the left lower chest nonradiating no associated shortness of breath lightheadedness diaphoresis. EKG sinus rhythm without any acute ST-T wave changes. Troponins were negative. Patient follows up with Dr. LEEANN Sweeney as an outpatient for cardiology never had any history of heart attack in the past as per the patient but the patient appears to have had a PCI of the circumflex in 2020. Patient denies any recent stress test although not a very reliable historian. Current cardiology evaluated the patient patient is recommended to follow-up with Dr. LEEANN Sweeney as an outpatient without any further workup. But recommending a monitor at the time of discharge. Patient chest pain is nonpleuritic not associate with food REVIEW OF SYSTEMS: CONSTITUTIONAL: No fever, no malaise, no fatigue. HEENT: No recent visual problems or hearing problems. Denied any sore throat. CARDIOVASCULAR: No orthopnea, PND, no palpitations, no syncope. PULMONARY: No shortness of breath, no cough, no hemoptysis. GASTROINTESTINAL: No diarrhea, no nausea, no vomiting, no abdominal pain. NEUROLOGICAL: No headaches, no weakness, no numbness. HEMATOLOGICAL: Denies any bleeding or petechiae. GENITOURINARY: Denies any burning micturition, frequency, or urgency. MUSCULOSKELETAL/RHEUMATOLOGICAL: Denies any joint pain, swelling, or any muscle pain. ENDOCRINE: Denies any polyuria or polydipsia. The rest of the 14-point review of systems is negative. PHYSICAL EXAMINATION: GENERAL: The patient is alert and oriented x3, not in any acute distress. Well developed, well nourished. HEENT: Pupils are round and equally reacting to light. EOMI. No scleral icterus. No conjunctival pallor. Normocephalic, atraumatic. No pharyngeal erythema. No thyromegaly. CARDIOVASCULAR: S1 and S2 present. No murmurs, rubs, or gallops. PULMONARY: Chest is clear to auscultation, no wheezing or crackles. ABDOMEN: Soft, nontender, nondistended, normoactive bowel sounds. No palpable organomegaly. MUSCULOSKELETAL: No joint swelling or deformity. EXTREMITIES: No cyanosis, clubbing, or pedal edema. NEUROLOGICAL: Gross neurological examination did not reveal any focal deficits. SKIN: No rashes. Assessment and plan -Chest pain noncardiac probably musculoskeletal evaluated by cardiology, ruled out unstable angina or acute coronary syndromes patient is being discharged to follow-up with his engineering technician as an outpatient further workup and testing as an outpatient after follow-up with his engineering technician -Coronary artery disease He-history of atrial fibrillation paroxysmal presently sinus rhythm is on Eliquis which was resumed -Benign prostatic hypertrophy -Hyperlipidemia -Hypertension patient blood pressure is low and patient was dizzy when he came in we will cut down the dose of losartan to 25 mg from 50 mg. Patient will be discharged today to follow-up with PCP and cardiology as an outpatient Past Medical History Past Medical History: No Reported History Additional Past Medical History / Comment(s): BPH History of Any Multi-Drug Resistant Organisms: None Reported Past Surgical History: No Surgical Hx Reported Past Anesthesia/Blood Transfusion Reactions: No Reported Reaction Past Psychological History: No Psychological Hx Reported Smoking Status: Never smoker Past Alcohol Use History: None Reported Past Drug Use History: None Reported - Past Family History Family Additional Family Medical History / Comment(s): Father with heart disease Medications and Allergies Home Medications Medication Instructions Recorded Confirmed Type Brimonidine Tartrate/Timolol 1 drop BOTH EYES BID 09/20/20 10/04/23 History [Combigan 0.2%-0.5% Eye Drops] Latanoprost [Xalatan 0.005%] 1 drop BOTH EYES HS 09/20/20 10/04/23 History Tamsulosin [Flomax] 0.4 mg PO HS 09/20/20 10/04/23 History Apixaban [Eliquis] 2.5 mg PO BID 10/04/23 10/04/23 History Atorvastatin [Lipitor] 80 mg PO HS 10/04/23 10/04/23 History Furosemide [Lasix] 10 mg PO DAILY 10/04/23 10/04/23 History Memantine [Namenda] 10 mg PO BID 10/04/23 10/04/23 History Nystatin 1 applic TOPICAL BID PRN 10/04/23 10/04/23 History Losartan [Cozaar] 25 mg PO HS #30 tab 10/05/23 10/04/23 Rx Allergies Allergy/AdvReac Type Severity Reaction Status Date / Time No Known Allergies Allergy Verified 10/04/23 20:19 Physical Exam Vitals: Vital Signs Temp Pulse Resp BP Pulse Ox 10/05/23 12:46 75 18 98 10/05/23 11:00 64 16 126/60 97 10/05/23 07:37 82 16 130/70 96 10/05/23 04:00 56 L 17 116/65 97 10/05/23 00:01 55 L 16 110/55 99 10/04/23 19:47 98.1 F 60 18 132/56 98 Intake and Output 10/04/23 10/05/23 10/05/23 22:59 06:59 14:59 Other: Weight 65.771 kg Results CBC & Chem 7: 10/04/23 20:07 10/04/23 20:07 Labs: Abnormal Lab Results - Last 24 Hours (Table) 10/04/23 10/04/23 10/05/23 Range/Units 20:07 20:07 00:08 RBC 3.96 L (4.30-5.90) m/uL Hgb 11.8 L (13.0-17.5) gm/dL Hct 37.1 L (39.0-53.0) % Plt Count 129 L (150-450) k/uL Chloride 115 H (98-107) mmol/L BUN 23 H (9-20) mg/dL Calcium 8.0 L (8.4-10.2) mg/dL Albumin 3.3 L (3.5-5.0) g/dL Ur Leukocyte Esterase Large H (Negative) Urine WBC >182 H (0-5) /hpf Urine WBC Clumps Rare H (None) /hpf Urine Bacteria Rare H (None) /hpf Urine Mucus Rare H (None) /hpf
--- NOTE | 2023-10-05 14:26 | P.DS ---
Providers Date of admission: 10/04/23 23:05 Attending physician: Nehemias Zimmer Consults: 10/04/23 23:05 Consult Physician Routine Consulting Provider: Ashly Palacios Consult Reason/Comments: CP Do you want consulting provider notified?: Yes Primary care physician: Stated None Hospital Course: 83-year-old male came with complaints of chest pain mild to moderate still has chest pain in the left lower chest nonradiating no associated shortness of breath lightheadedness diaphoresis. EKG sinus rhythm without any acute ST-T wave changes. Troponins were negative. Patient follows up with Dr. LEEANN Sweeney as an outpatient for cardiology never had any history of heart attack in the past as per the patient but the patient appears to have had a PCI of the circumflex in 2020. Patient denies any recent stress test although not a very reliable historian. Current cardiology evaluated the patient patient is recommended to follow-up with Dr. LEEANN Sweeney as an outpatient without any further workup. But recommending a monitor at the time of discharge. Patient chest pain is nonpleuritic not associate with food REVIEW OF SYSTEMS: CONSTITUTIONAL: No fever, no malaise, no fatigue. HEENT: No recent visual problems or hearing problems. Denied any sore throat. CARDIOVASCULAR: No orthopnea, PND, no palpitations, no syncope. PULMONARY: No shortness of breath, no cough, no hemoptysis. GASTROINTESTINAL: No diarrhea, no nausea, no vomiting, no abdominal pain. NEUROLOGICAL: No headaches, no weakness, no numbness. HEMATOLOGICAL: Denies any bleeding or petechiae. GENITOURINARY: Denies any burning micturition, frequency, or urgency. MUSCULOSKELETAL/RHEUMATOLOGICAL: Denies any joint pain, swelling, or any muscle pain. ENDOCRINE: Denies any polyuria or polydipsia. The rest of the 14-point review of systems is negative. PHYSICAL EXAMINATION: GENERAL: The patient is alert and oriented x3, not in any acute distress. Well developed, well nourished. HEENT: Pupils are round and equally reacting to light. EOMI. No scleral icterus. No conjunctival pallor. Normocephalic, atraumatic. No pharyngeal erythema. No thyromegaly. CARDIOVASCULAR: S1 and S2 present. No murmurs, rubs, or gallops. PULMONARY: Chest is clear to auscultation, no wheezing or crackles. ABDOMEN: Soft, nontender, nondistended, normoactive bowel sounds. No palpable organomegaly. MUSCULOSKELETAL: No joint swelling or deformity. EXTREMITIES: No cyanosis, clubbing, or pedal edema. NEUROLOGICAL: Gross neurological examination did not reveal any focal deficits. SKIN: No rashes. Assessment and plan -Chest pain noncardiac probably musculoskeletal evaluated by cardiology, ruled out unstable angina or acute coronary syndromes patient is being discharged to follow-up with his fiber artist as an outpatient further workup and testing as an outpatient after follow-up with his fiber artist -Coronary artery disease He-history of atrial fibrillation paroxysmal presently sinus rhythm is on Eliquis which was resumed -Benign prostatic hypertrophy -Hyperlipidemia -Hypertension patient blood pressure is low and patient was dizzy when he came in we will cut down the dose of losartan to 25 mg from 50 mg. Patient will be discharged today to follow-up with PCP and cardiology as an outpatient Patient Condition at Discharge: Stable Plan - Discharge Summary New Discharge Prescriptions: Continue Latanoprost [Xalatan 0.005%] 1 drop BOTH EYES HS Brimonidine Tartrate/Timolol [Combigan 0.2%-0.5% Eye Drops] 1 drop BOTH EYES BID Nystatin 1 applic TOPICAL BID PRN PRN Reason: rash Atorvastatin [Lipitor] 80 mg PO HS Tamsulosin [Flomax] 0.4 mg PO HS Memantine [Namenda] 10 mg PO BID Apixaban [Eliquis] 2.5 mg PO BID Furosemide [Lasix] 10 mg PO DAILY Changed Losartan [Cozaar] 25 mg PO HS #30 tab Discharge Medication List Brimonidine Tartrate/Timolol [Combigan 0.2%-0.5% Eye Drops] 1 drop BOTH EYES BID 09/20/20 [History] Latanoprost [Xalatan 0.005%] 1 drop BOTH EYES HS 09/20/20 [History] Tamsulosin [Flomax] 0.4 mg PO HS 09/20/20 [History] Apixaban [Eliquis] 2.5 mg PO BID 10/04/23 [History] Atorvastatin [Lipitor] 80 mg PO HS 10/04/23 [History] Furosemide [Lasix] 10 mg PO DAILY 10/04/23 [History] Memantine [Namenda] 10 mg PO BID 10/04/23 [History] Nystatin 1 applic TOPICAL BID PRN 10/04/23 [History] Losartan [Cozaar] 25 mg PO HS #30 tab 10/05/23 [Rx] Follow up Appointment(s)/Referral(s): Whit Sweeney MD [STAFF PHYSICIAN] - 1 Week Travis Nickerson MD [STAFF PHYSICIAN] - 1 Week
--- NOTE | 2023-10-05 14:32 | P.CRDCN ---
History of Present Illness History of present illness: HISTORY OF PRESENTING ILLNESS This is a pleasant 83-year-old with past medical history significant for CAD status post PCI of circumflex 2020, hypertension, hyperlipidemia, paroxysmal atrial fibrillation, BPH. He follows in the office with her ID as well as Dr. Cunningham previously. He states he has been doing okay however has had 2 episodes of chest pain usually lasting for approximately 5-10 minutes. Usually symptoms are random and not associated with any exertion. He had more significant episode and therefore went to emergency department and [place] [facility] and then was transferred to [facility]. Currently he denies any recurrence. He denies any actual palpitations during these episodes. He had prior heart catheterization and stenting 08/2020 and has been well since then. He does also have a diagnosis of atrial fibrillation however cannot actually feel when A. fib is happening. Troponins negative 3. Remains on sinus rhythm on telemetry. REVIEW OF SYSTEMS At the time of my exam: CONSTITUTIONAL: Denies fever or chills. CARDIOVASCULAR: +chest pain, no shortness of breath, orthopnea, PND or palpitations. RESPIRATORY: Denies cough. GASTROINTESTINAL: Denies abdominal pain, diarrhea, constipation, nausea or vomiting. MUSCULOSKELETAL: Denies myalgias. NEUROLOGIC: Denies numbness, tingling or weakness. ENDOCRINE: Denies fatigue, weight change, polydipsia or polyurina. GENITOURINARY: Denies burning, hematuria or urgency with micturation. HEMATOLOGIC: Denies history of anemia or bleeding. PHYSICAL EXAMINATION Vital signs reviewed. CONSTITUTIONAL: No apparent distress. HEENT: Head is normocephalic. Pupils are equal, round. Sclerae anicteric. Mucous membranes of the mouth are moist. No JVD. No carotid bruit. CHEST EXAMINATION: Lungs are clear to auscultation. No chest wall tenderness is noted on palpation or with deep breathing. HEART EXAMINATION: Regular rate and rhythm. S1, S2 heard. No murmurs, gallops or rub. ABDOMEN: Soft, nontender. Positive bowel sounds. EXTREMITIES: 2+ peripheral pulses, no lower extremity edema and no calf tenderness. NEUROLOGIC EXAMINATION: Patient is awake, alert and oriented x3. ASSESSMENT Atypical chest pain, somewhat episodic CAD status post PCI circumflex 2020 Hypertension Paroxysmal atrial fibrillation PLAN Patient having intermittent episodes of chest pain however workup has been unrevealing. Patient very anxious to go home. Discussed possible inpatient stress testing versus outpatient follow-up and patient would prefer outpatient follow-up. We will however set patient up for a 2 week event monitor to evaluate for any A. fib that may be causing some of his chest pain. Follow-up with Dr. Sweeney in 1 week. Past Medical History Past Medical History: No Reported History Additional Past Medical History / Comment(s): BPH History of Any Multi-Drug Resistant Organisms: None Reported Past Surgical History: No Surgical Hx Reported Past Anesthesia/Blood Transfusion Reactions: No Reported Reaction Past Psychological History: No Psychological Hx Reported Smoking Status: Never smoker Past Alcohol Use History: None Reported Past Drug Use History: None Reported - Past Family History Family Additional Family Medical History / Comment(s): Father with heart disease Medications and Allergies Home Medications Medication Instructions Recorded Confirmed Type Brimonidine Tartrate/Timolol 1 drop BOTH EYES BID 09/20/20 10/04/23 History [Combigan 0.2%-0.5% Eye Drops] Latanoprost [Xalatan 0.005%] 1 drop BOTH EYES HS 09/20/20 10/04/23 History Tamsulosin [Flomax] 0.4 mg PO HS 09/20/20 10/04/23 History Apixaban [Eliquis] 2.5 mg PO BID 10/04/23 10/04/23 History Atorvastatin [Lipitor] 80 mg PO HS 10/04/23 10/04/23 History Furosemide [Lasix] 10 mg PO DAILY 10/04/23 10/04/23 History Memantine [Namenda] 10 mg PO BID 10/04/23 10/04/23 History Nystatin 1 applic TOPICAL BID PRN 10/04/23 10/04/23 History Losartan [Cozaar] 25 mg PO HS #30 tab 10/05/23 10/04/23 Rx Allergies Allergy/AdvReac Type Severity Reaction Status Date / Time No Known Allergies Allergy Verified 10/04/23 20:19 Physical Exam Vitals: Vital Signs Temp Pulse Resp BP Pulse Ox 10/05/23 12:46 75 18 98 10/05/23 11:00 64 16 126/60 97 10/05/23 07:37 82 16 130/70 96 10/05/23 04:00 56 L 17 116/65 97 10/05/23 00:01 55 L 16 110/55 99 10/04/23 19:47 98.1 F 60 18 132/56 98 Intake and Output 10/04/23 10/05/23 10/05/23 22:59 06:59 14:59 Other: Weight 65.771 kg Results 10/04/23 20:07 10/04/23 20:07 Cardiac Enzymes 10/04/23 10/04/23 10/05/23 Range/Units 20:07 20:07 00:40 AST 31 (17-59) U/L Troponin I <0.012 <0.012 (0.000-0.034) ng/mL 10/05/23 Range/Units 04:21 AST (17-59) U/L Troponin I <0.012 (0.000-0.034) ng/mL Coagulation 10/04/23 Range/Units 20:07 PT 11.4 (10.0-12.5) sec APTT 28.3 (22.0-30.0) sec CBC 10/04/23 Range/Units 20:07 WBC 9.0 (3.8-10.6) k/uL RBC 3.96 L (4.30-5.90) m/uL Hgb 11.8 L (13.0-17.5) gm/dL Hct 37.1 L (39.0-53.0) % Plt Count 129 L (150-450) k/uL Comprehensive Metabolic Panel 10/04/23 Range/Units 20:07 Sodium 143 (137-145) mmol/L Potassium 4.2 (3.5-5.1) mmol/L Chloride 115 H (98-107) mmol/L Carbon Dioxide 24 (22-30) mmol/L BUN 23 H (9-20) mg/dL Creatinine 0.94 (0.66-1.25) mg/dL Glucose 94 (74-99) mg/dL Calcium 8.0 L (8.4-10.2) mg/dL AST 31 (17-59) U/L ALT 22 (4-49) U/L Alkaline Phosphatase 99 (38-126) U/L Total Protein 6.3 (6.3-8.2) g/dL Albumin 3.3 L (3.5-5.0) g/dL Current Medications Generic Name Dose Route Start Last Admin Trade Name Freq PRN Reason Stop Dose Admin Acetaminophen 650 mg 10/04/23 23:05 Acetaminophen Tab 325 Mg Tab PO Q6HR PRN Mild Pain or Fever > 100.5 Apixaban 2.5 mg 10/05/23 09:00 10/05/23 08:14 Apixaban 2.5 Mg Tablet PO 2.5 mg BID NIXON Administration Protocol Atorvastatin Calcium 80 mg 10/05/23 21:00 Atorvastatin 80 Mg Tab PO HS NIXON Brimonidine Tartrate 1 drops 10/05/23 21:00 Brimonidine Tartrate 0.2% Drops 5 Ml Btl BOTH EYES BID NIXON Furosemide 10 mg 10/05/23 09:00 10/05/23 08:14 Furosemide 10 Mg Tab PO 10 mg DAILY NIXON Administration Latanoprost 1 drops 10/05/23 21:00 Latanoprost 0.005% Ophth Drops 2.5 Ml Btl BOTH EYES HS NIXON Memantine 10 mg 10/05/23 09:00 10/05/23 08:14 Memantine 10 Mg Tab PO 10 mg BID NIXON Administration Naloxone HCl 0.2 mg 10/04/23 23:05 Naloxone 0.4 Mg/Ml 1 Ml Vial IV Q2M PRN Opioid Reversal Nystatin 1 applic 10/05/23 12:20 Nystatin 100,000unit/Gm Cream 30 Gm Tube TOPICAL BID PRN rash Protocol Tamsulosin HCl 0.4 mg 10/05/23 21:00 Tamsulosin 0.4 Mg Cap.Er.24h PO HS NIXON Timolol Maleate 1 drops 10/05/23 21:00 Timolol 0.5% Ophth Drops 5 Ml Btl BOTH EYES BID [facility] Intake and Output 10/04/23 10/05/23 10/05/23 22:59 06:59 14:59 Other: Weight 65.771 kg 10/04/23 20:07 10/04/23 20:07
[2023-10-05 15:15] VITALS: BP 128/71; RESP 16; TEMP 98.6
[2023-10-05] MEDS ORDERED: LATANOPROST 0.005% OPHTH DROPS 2.5 ML BTL BOTH EYES SCH (21:00)
[2023-10-05] MEDS ORDERED: ATORVASTATIN 80 MG TAB PO SCH (21:00)
[2023-10-05] MEDS ORDERED: TAMSULOSIN 0.4 MG CAP.ER.24H PO SCH (21:00)
[2023-10-05] MEDS ORDERED: BRIMONIDINE TARTRATE 0.2% DROPS 5 ML BTL BOTH EYES SCH (21:00)
[2023-10-05] MEDS ORDERED: TIMOLOL 0.5% OPHTH DROPS 5 ML BTL BOTH EYES SCH (21:00)
== END 2023-10-05 15:15 | disposition home or self-care (01) ==
LOC: EC 19:23 → 6NMEDSUR 23:05
PROVIDERS: ADMIT Hospitalist; ATTEND Hospitalist
DX: R07.89 Other chest pain (principal); I25.10 Atherosclerotic heart disease of native coronary artery without angina pectoris; N40.0 Benign prostatic hyperplasia without lower urinary tract symptoms; E78.5 Hyperlipidemia, unspecified; I10 Essential (primary) hypertension; I48.91 Unspecified atrial fibrillation; Z95.5 Presence of coronary angioplasty implant and graft; Z82.49 Family history of ischemic heart disease and other diseases of the circulatory system; Z79.899 Other long term (current) drug therapy; Z79.01 Long term (current) use of anticoagulants
CPT/HCPCS: 99285; 36415; 93005; 93270; 80053; 83735; 84484 ×2; 85025; 85610; 85730; 81001; G0378 ×2

== ENCOUNTER 2023-11-28 13:54 | Inpatient (IN) | payer MEDICARE, OTHER ==
--- NOTE | 2023-11-28 14:07 | ED ---
General Adult HPI - General Stated complaint: Afib Time Seen by Provider: 11/28/23 13:55 Source: patient, RN notes reviewed, old records reviewed - History of Present Illness Initial comments: This is an 83-year-old male who presents to the emergency department from [facility]. Patient was found to have atrial fibrillation and was already on Eliquis. Patient was put on a Cardizem drip to slow the heart rate down. Patient's troponin level is also mildly elevated. Patient states he woke up this morning could feel his heart racing but there was no chest pain. Patient had any difficulty breathing. Patient Nuys any recent fever chills but states he did have a mild cough. Patient denies any abdominal pain. Patient denies any calf pain or leg swelling - Related Data Home Medications Medication Instructions Recorded Confirmed Brimonidine Tartrate/Timolol 1 drop BOTH EYES BID 09/20/20 11/28/23 [Combigan 0.2%-0.5% Eye Drops] Latanoprost [Xalatan 0.005%] 1 drop BOTH EYES HS 09/20/20 11/28/23 Tamsulosin [Flomax] 0.4 mg PO HS 09/20/20 11/28/23 Apixaban [Eliquis] 2.5 mg PO BID 10/04/23 11/28/23 Atorvastatin [Lipitor] 80 mg PO HS 10/04/23 11/28/23 Furosemide [Lasix] 10 mg PO DAILY 10/04/23 11/28/23 Memantine [Namenda] 10 mg PO BID 10/04/23 11/28/23 Nystatin 1 applic TOPICAL BID PRN 10/04/23 11/28/23 Albuterol Inhaler [Ventolin Hfa 2 puff INHALATION RT-QID PRN 11/28/23 11/28/23 Inhaler] Docusate [Colace] 100 mg PO DAILY 11/28/23 11/28/23 Losartan [Cozaar] 25 mg PO HS 11/28/23 11/28/23 Sulfamethox-Tmp 800-160Mg [Bactrim 1 tab PO BID 11/28/23 11/28/23 DS 800-160 mg] predniSONE See Taper PO DAILY 11/28/23 11/28/23 Allergies Allergy/AdvReac Type Severity Reaction Status Date / Time No Known Allergies Allergy Verified 11/28/23 15:28 Review of Systems ROS Statement: Those systems with pertinent positive or pertinent negative responses have been documented in the HPI. ROS Other: All systems not noted in ROS Statement are negative. Past Medical History Past Medical History: No Reported History Additional Past Medical History / Comment(s): BPH History of Any Multi-Drug Resistant Organisms: None Reported Past Surgical History: No Surgical Hx Reported Past Anesthesia/Blood Transfusion Reactions: No Reported Reaction Past Psychological History: No Psychological Hx Reported Smoking Status: Never smoker Past Alcohol Use History: None Reported Past Drug Use History: None Reported - Past Family History Family Additional Family Medical History / Comment(s): Father with heart disease General Exam - General Exam Comments Initial Comments: GENERAL: Patient is well-developed and well-nourished. Patient is nontoxic and well- hydrated and is in no acute distress. ENT: Neck is soft and supple. No significant lymphadenopathy is noted. Oropharynx is clear. Moist mucous membranes. Neck has full range of motion without eliciting any pain. EYES: The sclera were anicteric and conjunctiva were pink and moist. Extraocular movements were intact and pupils were equal round and reactive to light. Eyelids were unremarkable. PULMONARY: Unlabored respirations. Good breath sounds bilaterally. No audible rales rhonchi or wheezing was noted. CARDIOVASCULAR: Patient is tachycardic with an irregular rate at about 120 beats a minute ABDOMEN: Soft and nontender with normal bowel sounds. SKIN: Skin is clear with no lesions or rashes and otherwise unremarkable. NEUROLOGIC: Patient is alert and oriented x3. Cranial nerves II through XII are grossly i ntact. Motor and sensory are also intact. Normal speech, volume and content. Symmetrical smile. MUSCULOSKELETAL: Normal extremities with adequate strength and full range of motion. No lower extremity swelling or edema. No calf tenderness. LYMPHATICS: No significant lymphadenopathy is noted PSYCHIATRIC: Normal psychiatric evaluation. Course Vital Signs 11/28/23 11/28/23 11/28/23 14:01 14:15 15:06 Temperature 98.6 F Pulse Rate 93 112 H Pulse Rate [ 82 [employer] Fore[employer] Specialist ] Respiratory 18 18 Rate Blood Pressure 142/114 94/61 O2 Sat by Pulse 97 97 Oximetry 11/28/23 16:21 Temperature Pulse Rate 101 H Pulse Rate [ [employer] Forensic Specialist ] Respiratory 16 Rate Blood Pressure 98/60 O2 Sat by Pulse 98 Oximetry Medical Decision Making - Medical Decision Making EKG is interpreted by myself EKG shows atrial fibrillation with rapid ventricular response at 105 bpm QRS is 84 QT interval 314 QTc is 375. Patient's EKG shows no ST segment ovation or depression. Was pt. sent in by a medical professional or institution (, [employer], PHYSICIAN COMPENSATION ANALYST, urgent care, hospital, or prison...) When possible be specific @ -Patient was sent to us from [facility]. Did you speak to anyone other than the patient for history (EMS, parent, family, police, friend...)? What history was obtained from this source @ -The ER doc at that facility spoke with one of our ER doctors prior to the patient arriving Did you review nursing and triage notes (agree or disagree)? Why? @ -I reviewed and agree with nursing and triage notes Were old charts reviewed (outside hosp., previous admission, EMS record, old EKG, old radiological studies, urgent care reports/EKG's, prison records)? Report findings @ -No old charts were reviewed Differential Diagnosis? @ -Differential Palpitations Ventricular arrhythmias, atrial arrhythmias, myocardial infarction, anemia, thyrotoxicosis, electrolyte imbalance, hypokalemia, pulmonary embolism, pulmonary disease, drugs, alcohol, anxiety, stress.... This is not meant to be an all-inclusive list. EKG interpreted by me (3pts min.). @ -As above X-rays interpreted by me (1pt min.). @ -None done CT interpreted by me (1pt min.). @ -None done U/S interpreted by me (1pt. min.). @ -None done What testing was considered but not performed or refused? (CT, X-rays, U/S, labs)? Why? @ -None What meds were considered but not given or refused? Why? @ -None Did you discuss the management of the patient with other professionals (professionals i.e. [employer], PHYSICIAN COMPENSATION ANALYST, lab, RT, psych nurse, social welfare clerk, dairy clerk, teacher, safety security officer, case filler)? Give summary @ -No Was smoking cessation discussed for >3mins.? @ -No Was critical care preformed (if so, how long)? @ -No Were there social determinants of health that impacted care today? How? (Homelessness, low income, unemployed, alcoholism, drug addiction, transportation, low edu. Level, literacy, decrease access to med. care, penitentiary, rehab)? @ -No Was there de-escalation of care discussed even if they declined (Discuss DNR or withdrawal of care, Hospice)? DNR status @ -No What co-morbidities impacted this encounter? (DM, HTN, Smoking, COPD, CAD, Cancer, CVA, ARF, Chemo, Hep., AIDS, mental health diagnosis, sleep apnea, morbid obesity)? @ -None Was patient admitted / discharged? Hospital course, mention meds given and route, prescriptions, significant lab abnormalities, going to OR and other pertinent info. @ -Patient had a repeat troponin here and it was normal. Patient was on Cardizem 5 mg/h and his heart rate was close to 100. Patient was kept on the same. I spoke with [facility] hospitalist they agreed admit the patient admit the patient wrote admitting orders Undiagnosed new problem with uncertain prognosis? @ -No Drug Therapy requiring intensive monitoring for toxicity (Heparin, Nitro, Insulin, Cardizem)? @ -No Were any procedures done? @ -No Diagnosis/symptom? @ -A-fib with rapid ventricular response Acute, or Chronic, or Acute on Chronic? @ -Default Uncomplicated (without systemic symptoms) or Complicated (systemic symptoms)? @ -Acute complicated Side effects of treatment? @ -No Exacerbation, Progression, or Severe Exacerbation? @ -No Poses a threat to life or bodily function? How? (Chest pain, USA, PA, pneumonia, PE, COPD, DKA, ARF, appy, cholecystitis, CVA, Diverticulitis, Homicidal, Suicidal, threat to staff... and all critical care pts) @ -Yes this could lead to blood clots and possible stroke - Lab Data Lab Results 11/28/23 11/28/23 Range/Units 14:03 14:04 Troponin I <0.012 (0.000-0.034) ng/mL Influenza Type A (PCR) Not Detected (Not Detectd) Influenza Type B (PCR) Not Detected (Not Detectd) RSV (PCR) Not Detected (Not Detectd) SARS-CoV-2 (PCR) Not Detected (Not Detectd) Disposition Clinical Impression: Atrial fibrillation with rapid ventricular response Disposition: ADMITTED IP TO THIS HOSP Referrals: Jose Juan Watson MD [Primary Care Provider] - 1-2 days Time of Disposition: 18:19
[2023-11-28] MEDS: DILTIAZEM 125 MG in SODIUM CHLORIDE 0.9% 100 ML IV SCH (16:30)
[2023-11-28] MEDS: SODIUM CHLORIDE 0.9% 500 ML 500 ML IV ONE (17:19)
[2023-11-28] MEDS ORDERED: NITROGLYCERIN SL TABS 0.4 MG TAB SUBLINGUAL PRN (18:19)
[2023-11-28] MEDS: ALBUTEROL HFA INHALER INHALATION PRN (21:27)
[2023-11-28] MEDS: TAMSULOSIN 0.4 MG CAP.ER.24H PO SCH (21:37)
[2023-11-28] MEDS: APIXABAN 2.5 MG TABLET PO SCH (21:37)
[2023-11-28] MEDS: MEMANTINE 10 MG TAB PO SCH (21:37)
[2023-11-28] MEDS: ATORVASTATIN 80 MG TAB PO SCH (21:37)
[2023-11-28] MEDS: TIMOLOL 0.5% OPHTH DROPS 5 ML BTL BOTH EYES SCH (21:39)
[2023-11-28] MEDS: LATANOPROST 0.005% OPHTH DROPS 2.5 ML BTL BOTH EYES SCH (21:39)
[2023-11-28] MEDS: BRIMONIDINE TARTRATE 0.2% DROPS 5 ML BTL BOTH EYES SCH (21:41)
[2023-11-28] MEDS ORDERED: guaiFENesin SYRUP 100MG/5ML 200 MG/10 ML CUP PO PRN (22:06)
--- NOTE | 2023-11-28 22:07 | P.HPIM ---
History of Present Illness H&P Date: 11/28/23 Chief Complaint: Chest pain Patient is a 83-year-old male with a past medical history of atrial fibrillation on anticoagulation with Eliquis, hypertension, hyperlipidemia, BPH initially presented to ER with [facility] with complaints of chest pain started around 7:30 AM which is mainly left retrosternal associated with heart racing or fast. Associated shortness of breath. Patient was found to have atrial fibrillation with rapid ventricular rate and he presented to ER. He was placed on Cardizem drip. He was also found to have mildly elevated troponin level. Does have cough without any sputum production. Patient was recently seen by his pier hand due to shortness of breath. He was started on antibiotics, albuterol inhaler and antibiotics of Bactrim. Otherwise denied any fever or chills. No nausea vomiting or abdominal pain or diarrhea. Troponin level at [facility] was 0.11. COVID-19, RSV and influenza PCR negative. EKG on admission showed atrial fibrillation with rapid atrial response with a heart rate of 105 Laboratory data from the other hospital facility was reviewed. Review of Systems Constitutional: Patient denies any fever or chills . No generalized weakness or weight loss. Abdomen: Patient denied nausea vomiting and diarrhea and abdominal pain. Cardiovascular: Patient did complain of chest pain associate with shortness of breath and palpitations. No leg swelling. Respiratory: patient does have cough without sputum production. No shortness of breath Neurologic: Patient denied any numbness or tingling. no headache. Musculoskeletal: Patient denies any complaints of joint swelling or deformity. Skin: Negative Psychiatric: Negative Endocrine: No heat or cold intolerance. No recent weight gain. Genitourinary: No dysuria or hematuria. All other 14 point ROS negative except the above Past Medical History Past Medical History: No Reported History Additional Past Medical History / Comment(s): BPH History of Any Multi-Drug Resistant Organisms: None Reported Past Surgical History: No Surgical Hx Reported Past Anesthesia/Blood Transfusion Reactions: No Reported Reaction Past Psychological History: No Psychological Hx Reported Smoking Status: Never smoker Past Alcohol Use History: None Reported Past Drug Use History: None Reported - Past Family History Family Additional Family Medical History / Comment(s): Father with heart disease Medications and Allergies Home Medications Medication Instructions Recorded Confirmed Type Brimonidine Tartrate/Timolol 1 drop BOTH EYES BID 09/20/20 11/28/23 History [Combigan 0.2%-0.5% Eye Drops] Latanoprost [Xalatan 0.005%] 1 drop BOTH EYES HS 09/20/20 11/28/23 History Tamsulosin [Flomax] 0.4 mg PO HS 09/20/20 11/28/23 History Apixaban [Eliquis] 2.5 mg PO BID 10/04/23 11/28/23 History Atorvastatin [Lipitor] 80 mg PO HS 10/04/23 11/28/23 History Furosemide [Lasix] 10 mg PO DAILY 10/04/23 11/28/23 History Memantine [Namenda] 10 mg PO BID 10/04/23 11/28/23 History Nystatin 1 applic TOPICAL BID PRN 10/04/23 11/28/23 History Albuterol Inhaler [Ventolin Hfa 2 puff INHALATION RT-QID PRN 11/28/23 11/28/23 History Inhaler] Docusate [Colace] 100 mg PO DAILY 11/28/23 11/28/23 History Losartan [Cozaar] 25 mg PO HS 11/28/23 11/28/23 History Sulfamethox-Tmp 800-160Mg [Bactrim 1 tab PO BID 11/28/23 11/28/23 History DS 800-160 mg] predniSONE See Taper PO DAILY 11/28/23 11/28/23 History Allergies Allergy/AdvReac Type Severity Reaction Status Date / Time No Known Allergies Allergy Verified 11/28/23 15:28 Physical Exam Vitals: Vital Signs Temp Pulse Pulse Resp BP Pulse Ox 11/28/23 20:08 80 18 101/52 95 11/28/23 19:39 98.1 F 90 18 95/68 96 11/28/23 18:30 89 16 102/52 97 11/28/23 17:00 87 16 70/49 98 11/28/23 16:21 101 H 16 98/60 98 11/28/23 15:06 112 H 18 94/61 97 11/28/23 14:15 82 11/28/23 14:01 98.6 F 93 18 142/114 97 Intake and Output 11/28/23 11/28/23 11/28/23 06:59 14:59 22:59 Intake Total 3.667 Balance 3.667 Intake: Intake, IV Titration 3.667 Amount Diltiazem 125 mg In 3.667 Sodium Chloride 0.9% 100 ml @ 5 MG/HR 5 mls/hr IV .Q24H [facility] Rx#:[id number] Other: Weight 68.039 kg PHYSICAL EXAMINATION: Patient is lying in the bed comfortably, no acute distress, awake alert and oriented.. HEENT: Normocephalic. Neck is supple. Pupils reactive. Nostrils clear. Oral cavity is moist. Neck reveals no JVD, carotid bruits, or thyromegaly. CHEST EXAMINATION: Trachea is central. Symmetrical expansion. Bibasilar diminished sounds otherwise lung carlson clear to auscultation and percussion. CARDIAC: Normal S1, S2 with no gallops. No murmurs. Irregular rhythm. ABDOMEN: Soft. Bowel sounds normal. No organomegaly. No abdominal bruits. Extremities: reveal no edema. No clubbing or cyanosis Neurologically awake, alert, oriented x3 with well-coordinated movements. No focal deficits noted Skin: No rash or skin lesions. Psychiatric: Coperative. Nonsuicidal Musculoskeletal: No joint swelling or deformity. Normal range of motion. Thrombosis Risk Factor Assmnt - DVT/VTE Prophylaxis DVT/VTE Prophylaxis: Pharmacologic Prophylaxis ordered Assessment and Plan Assessment: Paroxysmal atrial fibrillation with rapid ventricular response. Patient is on anticoagulation with Eliquis at home. Chest pain with mildly elevated troponin level. Possible type II DE Hypertension Hyperlipidemia BPH Mild cognitive impairment DVT prophylaxis patient is already on anticoagulation Plan: Patient will be continued on telemonitoring. Continue with Cardizem drip. Follow-up serial EKG and troponin x 3. Started back on home blood pressure medications and cardiology was consulted for evaluation. Follow-up CBC and BMP tomorrow. Time with Patient: Greater than 30
--- NOTE | 2023-11-29 06:36 | XR ---
EXAMINATION TYPE: XR chest 1V DATE OF EXAM: 11/29/2023 COMPARISON: 10/04/2023 HISTORY: Shortness of breath TECHNIQUE: Single frontal view of the chest is obtained. FINDINGS: There is no interval change in the partially consolidative and interstitial infiltrate in the right l malaika apex. No change in the tenting of the right hemidiaphragm and small partially consolidated infilt rate in the right mid to lower lung zone. The left lung is clear. Heart and pulmonary vasculature are normal. There is no pleural effusion or pneumothorax. IMPRESSION: Right lung infiltrates unchanged compared to the study of 10/04/2023. Findings are most likely chronic in nature. Clinical correlation recommended. CT chest might be useful for further evaluation if clini nish indicated. IMPRESSION: No acute process.
[2023-11-29] MEDS: DOCUSATE 100 MG CAP PO SCH (07:56)
[2023-11-29] MEDS: ASPIRIN 325 MG TAB PO SCH (07:56)
[2023-11-29 09:06] LABS: Basophils # (A) 0.1 k/uL (0-0.2); Basophils % (A) 1 %; Eosinophils # (A) 0.3 k/uL (0-0.7); Eosinophils % (A) 3 %; Lymphocytes # (A) 1.7 k/uL (1.0-4.8); Lymphocytes % (A) 21 %; MCH 29.8 pg (25.0-35.0); MCHC 32.4 g/dL (31.0-37.0); MCV 92.1 fL (80.0-100.0); Mean Platelet Volume 8.8; Monocytes # (A) 0.5 k/uL (0-1.0); Monocytes % (A) 7 %; Neutrophils # (A) 5.3 k/uL (1.3-7.7); Neutrophils % (A) 65 %; Platelet Count 176 k/uL (150-450); RBC 4.34 m/uL (4.30-5.90); RDW 13.7 % (11.5-15.5); WBC 8.1 k/uL (3.8-10.6)
[2023-11-29 09:20] LABS: African American GFR (CKD) 52 (>60 ml/min/1.73 sqM); Anion Gap 6 mmol/L; Blood Urea Nitrogen 26 mg/dL (9-20); Calcium 8.7 mg/dL (8.4-10.2); Carbon Dioxide 20 mmol/L (22-30); Chloride 109 mmol/L (98-107); Glucose 144 mg/dL (74-99); Non-African American GFR(CKD) 45 (>60 ml/min/1.73 sqM); Potassium 4.6 mmol/L (3.5-5.1); Sodium 135 mmol/L (137-145)
--- NOTE | 2023-11-29 14:31 | P.CRDCN ---
History of Present Illness Consult date: 11/29/23 Consult reason: chest pain, atrial fibrillation Chief complaint: chest pain History of present illness: History of present illness: Patient is a pleasant 83-year-old male with significant past medical history of atrial fibrillation on Eliquis, hypertension, hyperlipidemia, CAD status post PCI, and BPH who presented to an outside hospital in [facility] of chest pain and shortness of breath. He does follow with Dr. Pagan in the office. He reports he developed chest pain when he was walking, he took nitro 3 times with no relief. He was found to be in A-fib with RVR. His troponin was mildly elevated 0.11 and he was transferred to [facility]. D-dimer was normal, BNP 191, creatinine 1.7. He reports that he is feeling better now denies any chest pain or pressure currently. He was seen in September 2023 with similar symptoms and wore an event monitor for 2 weeks after that which revealed paroxysmal atrial f ibrillation [place] [id number], average heart rates during A- fib was 94 bpm, average heart rate in sinus rhythm was 80 bpm, A-fib burden was 16%. REVIEW OF SYSTEMS: No fever or chills. No cough or expectoration. No diaphoresis. Patient denies headache, dizziness, blurred vision, double vision. Patient denies any stomach discomfort. No nausea, vomiting. No hematochezia. No hematemesis. Denies any black stools or blood in his stools. Denies dysuria or hematuria. No muscle weakness or numbness. No chest pain or pressure. PHYSICAL EXAMINATION: This is a 83-year-old male in no apparent distress at the time of my examination. HEENT: Head is atraumatic, normocephalic. Pupils are equal, round. Sclerae anicteric. Conjunctivae are clear. Mucous membranes of the mouth are moist. Neck is supple. There is no jugular venous distention. No carotid bruit is heard. CHEST EXAMINATION: Lungs are clear to auscultation. No chest wall tenderness is noted on palpation or with deep breathing. HEART EXAMINATION: Heart regular rate and rhythm. S1, S2 heard. No murmurs, gallops or rub. ABDOMEN: Soft, nontender. Bowel sounds are heard. EXTREMITIES: 2+ peripheral pulses with no evidence of peripheral edema and no calf tenderness noted. NEUROLOGIC EXAMINATION: Patient is awake, alert and oriented x3. IMPRESSION AND PLAN: CAD status post PCI circumflex 2020 Hypertension Paroxysmal atrial fibrillation Chest pain PLAN: He has had multiple admissions for chest pain. We did discuss medical management versus stress testing. He would like to proceed with stress test tomorrow. Will order Lexiscan stress test. Stop Cardizem, start Toprol 12.5 mg p.o. daily and monitor response. Further recommendations pending patient's clinical course. I am dictating on behalf of Dr. Thomas Chaudhari's history/physical and assessment/plan. Past Medical History Past Medical History: No Reported History Additional Past Medical History / Comment(s): BPH History of Any Multi-Drug Resistant Organisms: None Reported Past Surgical History: No Surgical Hx Reported Past Anesthesia/Blood Transfusion Reactions: No Reported Reaction Past Psychological History: No Psychological Hx Reported Smoking Status: Never smoker Past Alcohol Use History: None Reported Past Drug Use History: None Reported - Past Family History Family Additional Family Medical History / Comment(s): Father with heart disease Medications and Allergies Home Medications Medication Instructions Recorded Confirmed Type Brimonidine Tartrate/Timolol 1 drop BOTH EYES BID 09/20/20 11/28/23 History [Combigan 0.2%-0.5% Eye Drops] Latanoprost [Xalatan 0.005%] 1 drop BOTH EYES HS 09/20/20 11/28/23 History Tamsulosin [Flomax] 0.4 mg PO HS 09/20/20 11/28/23 History Apixaban [Eliquis] 2.5 mg PO BID 10/04/23 11/28/23 History Atorvastatin [Lipitor] 80 mg PO HS 10/04/23 11/28/23 History Furosemide [Lasix] 10 mg PO DAILY 10/04/23 11/28/23 History Memantine [Namenda] 10 mg PO BID 10/04/23 11/28/23 History Nystatin 1 applic TOPICAL BID PRN 10/04/23 11/28/23 History Albuterol Inhaler [Ventolin Hfa 2 puff INHALATION RT-QID PRN 11/28/23 11/28/23 History Inhaler] Docusate [Colace] 100 mg PO DAILY 11/28/23 11/28/23 History Losartan [Cozaar] 25 mg PO HS 11/28/23 11/28/23 History Sulfamethox-Tmp 800-160Mg [Bactrim 1 tab PO BID 11/28/23 11/28/23 History DS 800-160 mg] predniSONE See Taper PO DAILY 11/28/23 11/28/23 History Allergies Allergy/AdvReac Type Severity Reaction Status Date / Time No Known Allergies Allergy Verified 11/28/23 15:28 Physical Exam Vitals: Vital Signs Temp Pulse Resp BP Pulse Ox 11/29/23 11:02 66 18 112/69 98 11/29/23 09:00 70 16 130/70 98 11/29/23 08:27 20 11/29/23 07:45 70 16 130/60 98 11/29/23 05:56 98.0 F 61 15 117/61 97 11/29/23 03:18 72 15 113/73 97 11/29/23 02:00 72 99/55 97 11/29/23 01:00 68 106/52 98 11/29/23 00:00 92 131/69 98 11/28/23 23:00 68 117/65 97 11/28/23 22:00 68 105/64 96 11/28/23 21:04 73 16 124/65 95 11/28/23 20:08 80 18 101/52 95 11/28/23 19:39 98.1 F 90 18 95/68 96 11/28/23 18:30 89 16 102/52 97 11/28/23 17:00 87 16 70/49 98 11/28/23 16:21 101 H 16 98/60 98 11/28/23 15:06 112 H 18 94/61 97 Intake and Output 11/28/23 11/29/23 11/29/23 22:59 06:59 14:59 Intake Total 3.667 Output Total 500 Balance 3.667 -500 Intake: Intake, IV Titration 3.667 Amount Diltiazem 125 mg In 3.667 Sodium Chloride 0.9% 100 ml @ 5 MG/HR 5 mls/hr IV .Q24H [facility] Rx#:[id number] Output: Urine 500 Other: # Voids 3 Results 11/29/23 08:24 11/29/23 08:24 Cardiac Enzymes 11/28/23 11/28/23 11/28/23 Range/Units 14:03 18:35 21:00 Troponin I <0.012 <0.012 <0.012 (0.000-0.034) ng/mL CBC 11/29/23 Range/Units 08:24 WBC 8.1 (3.8-10.6) k/uL RBC 4.34 (4.30-5.90) m/uL Hgb 13.0 (13.0-17.5) gm/dL Hct 40.0 (39.0-53.0) % Plt Count 176 (150-450) k/uL Comprehensive Metabolic Panel 11/29/23 Range/Units 08:24 Sodium 135 L (137-145) mmol/L Potassium 4.6 (3.5-5.1) mmol/L Chloride 109 H (98-107) mmol/L Carbon Dioxide 20 L (22-30) mmol/L BUN 26 H (9-20) mg/dL Creatinine 1.42 H (0.66-1.25) mg/dL Glucose 144 H (74-99) mg/dL Calcium 8.7 (8.4-10.2) mg/dL Current Medications Generic Name Dose Route Start Last Admin Trade Name Freq PRN Reason Stop Dose Admin Albuterol Sulfate 2 puff 11/28/23 20:50 11/28/23 21:27 Albuterol Hfa Inhaler INHALATION 2 puff RT-QID PRN Administration Shortness Of Breath Apixaban 2.5 mg 11/28/23 21:00 11/29/23 07:56 Apixaban 2.5 Mg Tablet PO 2.5 mg BID NIXON Administration Protocol Aspirin 325 mg 11/29/23 09:00 11/29/23 07:56 Aspirin 325 Mg Tab PO 325 mg DAILY NIXON Administration Atorvastatin Calcium 80 mg 11/28/23 21:00 11/28/23 21:37 Atorvastatin 80 Mg Tab PO 80 mg HS NIXON Administration Brimonidine Tartrate 1 drops 11/28/23 21:00 11/29/23 08:47 Brimonidine Tartrate 0.2% Drops 5 Ml Btl BOTH EYES 1 drops BID NIXON Administration Docusate Sodium 100 mg 11/29/23 09:00 11/29/23 07:56 Docusate 100 Mg Cap PO 100 mg DAILY NIXON Administration Guaifenesin 200 mg 11/28/23 22:06 Guaifenesin Syrup 100mg/5ml 200 Mg/10 Ml Cup PO TID PRN Cough Latanoprost 1 drops 11/28/23 21:00 11/28/23 21:39 Latanoprost 0.005% Ophth Drops 2.5 Ml Btl BOTH EYES 1 drops HS NIXON Administration Memantine 10 mg 11/28/23 21:00 11/29/23 08:48 Memantine 10 Mg Tab PO 10 mg BID NIXON Administration Metoprolol Succinate 12.5 mg 11/29/23 14:30 Metoprolol Succinate (Er) 25 Mg Tab.Er.24h PO DAILY NIXON Nitroglycerin 0.4 mg 11/28/23 18:19 Nitroglycerin Sl Tabs 0.4 Mg Tab SUBLINGUAL Q5M PRN Chest Pain Tamsulosin HCl 0.4 mg 11/28/23 21:00 11/28/23 21:37 Tamsulosin 0.4 Mg Cap.Er.24h PO 0.4 mg HS NIXON Administration Timolol Maleate 1 drops 11/28/23 21:00 11/29/23 08:47 Timolol 0.5% Ophth Drops 5 Ml Btl BOTH EYES 1 drops BID NIXON Administration Intake and Output 11/28/23 11/29/23 11/29/23 22:59 06:59 14:59 Intake Total 3.667 Output Total 500 Balance 3.667 -500 Intake: Intake, IV Titration 3.667 Amount Diltiazem 125 mg In 3.667 Sodium Chloride 0.9% 100 ml @ 5 MG/HR 5 mls/hr IV .Q24H [facility] Rx#:[id number] Output: Urine 500 Other: # Voids 3 11/29/23 08:24 11/29/23 08:24
[2023-11-29] MEDS: METOPROLOL SUCCINATE (ER) 25 MG TAB.ER.24H PO SCH (15:42)
--- NOTE | 2023-11-29 23:37 | P.PN ---
Subjective Progress Note Date: 11/29/23 Patient is a 83-year-old male with a past medical history of atrial fibrillation on anticoagulation with Eliquis, hypertension, hyperlipidemia, BPH initially presented to ER with acute hospital with complaints of chest pain started around 7:30 AM which is mainly left retrosternal associated with heart racing or fast. Associated shortness of breath. Patient was found to have atrial fibrillation with rapid ventricular rate and he presented to ER. He was placed on Cardizem drip. He was also found to have mildly elevated troponin level. Does have cough without any sputum production. 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 He was started on antibiotics, albuterol inhaler and antibiotics of Bactrim. Otherwise denied any fever or chills. No nausea vomiting or abdominal pain or diarrhea. Troponin level at [facility] was 0.11. COVID-19, RSV and influenza PCR negative. EKG on admission showed atrial fibrillation with rapid atrial response with a heart rate of 105 Laboratory data from the other hospital facility was reviewed. 11/29/2023 Patient is currently lying in the bed. Awake alert and oriented x 3. Denies any episodes of chest pain. Shortness of breath is stable. Patient has been afebrile. Complains of cough without sputum production.. Laboratory data showed sodium 135 potassium 4.6 chloride 109 bicarb is 20 BUN 26 and creatinine 1.41 blood sugar is 144 and TSH 3.87. Troponin x 3 negative. Cardiology is planning for stress test tomorrow. Current medications reviewed. Objective - Vital Signs Vital signs: Vital Signs Temp 98.0 F 11/29/23 05:56 Pulse 66 11/29/23 11:02 Resp 18 11/29/23 11:02 BP 112/69 11/29/23 11:02 Pulse Ox 98 11/29/23 11:02 FiO2 Intake & Output 11/28/23 11/29/23 11/29/23 18:59 06:59 18:59 Intake Total 3.667 Output Total 500 Balance 3.667 -500 Weight 68.039 kg Intake: Intake, IV Titration 3.667 Amount Diltiazem 125 mg In 3.667 Sodium Chloride 0.9% 100 ml @ 5 MG/HR 5 mls/hr IV .Q24H [facility] Rx#:[id number] Output: Urine 500 Other: # Voids 3 - Exam PHYSICAL EXAMINATION: Patient is lying in the bed comfortably, no acute distress, awake alert and oriented.. HEENT: Normocephalic. Neck is supple. Pupils reactive. Nostrils clear. Oral cavity is moist. Neck reveals no JVD, carotid bruits, or thyromegaly. CHEST EXAMINATION: Trachea is central. Symmetrical expansion. Bibasilar diminished sounds otherwise lung carlson clear to auscultation and percussion. CARDIAC: Normal S1, S2 with no gallops. No murmurs. Irregular rhythm. ABDOMEN: Soft. Bowel sounds normal. No organomegaly. No abdominal bruits. Extremities: reveal no edema. No clubbing or cyanosis Neurologically awake, alert, oriented x3 with well-coordinated movements. No focal deficits noted Skin: No rash or skin lesions. Psychiatric: Coperative. Nonsuicidal Musculoskeletal: No joint swelling or deformity. Normal range of motion. - Labs CBC & Chem 7: 11/29/23 08:24 11/29/23 08:24 Labs: Abnormal Lab Results - Last 24 Hours (Table) 11/29/23 Range/Units 08:24 Sodium 135 L (137-145) mmol/L Chloride 109 H (98-107) mmol/L Carbon Dioxide 20 L (22-30) mmol/L BUN 26 H (9-20) mg/dL Creatinine 1.42 H (0.66-1.25) mg/dL Glucose 144 H (74-99) mg/dL Assessment and Plan Assessment: Paroxysmal atrial fibrillation with rapid ventricular response. Patient is on anticoagulation with Eliquis at home. Rate controlled now. Chest pain with mildly elevated troponin level. Possible type II HI COPD not in exacerbation Hypertension Hyperlipidemia BPH Mild cognitive impairment DVT prophylaxis patient is already on anticoagulation Plan: Patient will be continued on telemonitoring. Cardizem drip has been discontinued. Patient was started on metoprolol.. TSH within normal limits. Serial EKG and troponin x 3 negative.. Started back on home blood pressure medications cardiology is planning for stress test tomorrow. Follow-up CBC and BMP tomorrow. Time with Patient: Greater than 30
[2023-11-30] MEDS ORDERED: AMINOPHYLLINE 500 MG/20 ML VIAL IV PRN (06:00)
[2023-11-30] MEDS ORDERED: CAFFEINE CITRATE 60 MG/3 ML VIAL IV PRN (06:00)
[2023-11-30] MEDS ORDERED: REGADENOSON 0.4 MG/5 ML SYRINGE IV PRN (06:00)
[2023-11-30 09:31] LABS: African American GFR (CKD) 51 (>60 ml/min/1.73 sqM); Anion Gap 6 mmol/L; Blood Urea Nitrogen 22 mg/dL (9-20); Calcium 8.9 mg/dL (8.4-10.2); Carbon Dioxide 23 mmol/L (22-30); Chloride 109 mmol/L (98-107); Glucose 90 mg/dL (74-99); Non-African American GFR(CKD) 44 (>60 ml/min/1.73 sqM); Potassium 4.8 mmol/L (3.5-5.1); Sodium 138 mmol/L (137-145)
[2023-11-30 10:50] LABS: Chol/HDL Ratio 2.94 Ratio; LDL Cholesterol,Calculated 63.5 mg/dL (0.0-131.0); VLDL Calculation 12.36 mg/dL (5.00-40.00)
--- NOTE | 2023-11-30 12:49 | CA ---
Lexiscan Nuclear Stress Test Report Name: Hira Anderson Exam Date: 11/30/2023 09:57 Exam Location: [place] Stress Ht (in): 63 Wt (lb): 144 BSA: 1.68 Ordering Phys: Jessy Velazquez Referring Phys: WINSTON, Technologist: Singh Ba Age: 83 Gender: M : 1940 Procedure CPT: Indications: Reflex order-Stress test ICD-10 Codes: Patient History: PALPITATIONS, FAMILY HX OF HEART DISEASE, PRIOR SMOKER, PRIOR HEART CATH WITH STENTING X 2, EMPHYSEMA Medications: Meds past 24 hrs: Pretest Chest Pain: STRESS TEST Lexiscan Protocol Exercise Duration (min:sec): 01:[address] Depressions (mm): Angina Score: Smith Score: Resting HR (bpm): 61 Peak HR (bpm): 91 Resting BP (mmHg): 120 / 68 Peak BP (mmHg): 120 / 68 MPHR: 136 Target HR: 116 % MPHR: 67 METS: 1.0 Total Dose: Peak Dose: Atropine: Double Product: 08828 BP Response: Stress Termination: INFUSION COMPLETE Stress Symptoms: NO SYMPTOMS Stress Summary: ECG ANALYSIS Resting ECG: Stress ECG: CONCLUSIONS Baseline EKG revealed sinus mechanism with PACs and inferolateral nonspecific ST and T wave abnormality. With Lexiscan administration the heart rate changed from 61 to 83 bpm and the blood pressure change from 120/68 to 92/51 and then slowly came back to baseline. Patient was asymptomatic and EKG was inconclusive. By EKG criteria this is an inconclusive Lexiscan stress test because of resting EKG changes. The nuclear scan results which are more pertinent will be reported by the radiologist Dr. Whit Sweeney MD (Electronically Signed) Final Date: 30 November 2023 12:48
--- NOTE | 2023-11-30 14:04 | P.PN ---
Progress Note - Text Patient down in nuc med for [place] scan this morning during cardiology rounds. Awaiting results of Lexiscan
--- NOTE | 2023-11-30 14:46 | NM ---
EXAMINATION TYPE: NM stress lexiscan cardiolite DATE OF EXAM: 11/30/2023 COMPARISON: NONE CLINICAL INDICATION: Male, 83 years old with history of chest pain; TECHNIQUE: After the intravenous administration of 9.8 mCi Tc 99m Sestamibi - Cardiolite resting SPE CT images acquired 45 minutes post injection. The patient received 0.4mg Lexiscan, 25.5 mCi Tc 99m Sestamibi - Stress images obtained [address] injection FINDINGS: Review of stress and rest SPECT images demonstrates no distinct perfusion abnormality. Gated analysi s shows normal wall motion with an estimated left ventricular ejection fraction of 50 %. IMPRESSION: No scintigraphic evidence for reversible ischemia.
[2023-11-30 16:28] VITALS: BP 120/60; PULSE 78; RESP 20; TEMP 97.5
== END 2023-11-30 18:59 | disposition home or self-care (01) | DRG 282 ==
LOC: EC 13:54 → 3SCARD 18:19
PROVIDERS: ADMIT Internal Medicine; ATTEND Internal Medicine
PROC: 4A02XM4 Measurement of Cardiac Total Activity, External Approach (ICD-10-PCS; principal; 2023-11-30)
DX: I48.0 Paroxysmal atrial fibrillation (principal); I21.A1 Myocardial infarction type 2; E78.5 Hyperlipidemia, unspecified; I25.119 Atherosclerotic heart disease of native coronary artery with unspecified angina pectoris; G31.84 Mild cognitive impairment of uncertain or unknown etiology; I10 Essential (primary) hypertension; N40.0 Benign prostatic hyperplasia without lower urinary tract symptoms; Z79.01 Long term (current) use of anticoagulants; Z79.899 Other long term (current) drug therapy; Z82.49 Family history of ischemic heart disease and other diseases of the circulatory system; Z98.61 Coronary angioplasty status; Z11.52 Encounter for screening for COVID-19
CPT/HCPCS: 36415; 71045; 78452; 80048; 80061; 84443; 84484; 85025; 87636; 93005; 93017; 94640; 96365; 96366; 99285

== ENCOUNTER 2024-07-04 20:45 | Inpatient (IN) | payer MEDICARE, OTHER ==
--- NOTE | 2024-07-04 21:30 | ED ---
Arrhythmia/Palpitations HPI - General Chief Complaint: Arrhythmia/Palpitations Stated Complaint: Chest pain Time Seen by Provider: 07/04/24 20:48 Source: patient, EMS, RN notes reviewed Mode of arrival: EMS Limitations: no limitations - History of Present Illness Initial Comments: 84-year-old male presents emergency department from [place] to complaint of A-fib RVR, left eye infection. 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 Patient does have baseline dementia and confusion. Patient was given multiple doses of antiarrhythmics patient is currently anticoagulated. Patient denies any chest pain at this time. Patient denies any active pain. - Related Data Home Medications Medication Instructions Recorded Confirmed Brimonidine Tartrate/Timolol 1 drop BOTH EYES BID 09/20/20 11/28/23 [Combigan 0.2%-0.5% Eye Drops] Latanoprost [Xalatan 0.005%] 1 drop BOTH EYES HS 09/20/20 11/28/23 Tamsulosin [Flomax] 0.4 mg PO HS 09/20/20 11/28/23 Apixaban [Eliquis] 2.5 mg PO BID 10/04/23 11/28/23 Atorvastatin [Lipitor] 80 mg PO HS 10/04/23 11/28/23 Memantine [Namenda] 10 mg PO BID 10/04/23 11/28/23 Nystatin 1 applic TOPICAL BID PRN 10/04/23 11/28/23 Albuterol Inhaler [Ventolin Hfa 2 puff INHALATION RT-QID PRN 11/28/23 11/28/23 Inhaler] Docusate [Colace] 100 mg PO DAILY 11/28/23 11/28/23 Previous Rx's Medication Instructions Recorded Metoprolol Succinate (ER) [Toprol 12.5 mg PO DAILY #30 tab 11/30/23 XL] Allergies Allergy/AdvReac Type Severity Reaction Status Date / Time No Known Allergies Allergy Verified 07/04/24 20:49 Review of Systems ROS Statement: Those systems with pertinent positive or pertinent negative responses have been documented in the HPI. ROS Other: All systems not noted in ROS Statement are negative. Past Medical History Past Medical History: Atrial Flutter, Hyperlipidemia, Hypertension, Osteoarthritis (OA) Additional Past Medical History / Comment(s): BPH History of Any Multi-Drug Resistant Organisms: None Reported Past Surgical History: No Surgical Hx Reported Past Anesthesia/Blood Transfusion Reactions: No Reported Reaction Past Psychological History: No Psychological Hx Reported Smoking Status: Former smoker Past Alcohol Use History: None Reported Past Drug Use History: None Reported - Past Family History Family Additional Family Medical History / Comment(s): Father with heart disease General Exam Limitations: no limitations General appearance: alert, in no apparent distress Head exam: Present: atraumatic, normocephalic, normal inspection Eye exam: Present: PERRL, EOMI, conjunctival injection, periorbital swelling, other (Purulent drainage left eye, cloudy white-colored). Absent: normal appearance, scleral icterus ENT exam: Present: normal exam, normal oropharynx, mucous membranes moist, TM's normal bilaterally Neck exam: Present: normal inspection, full ROM. Absent: tenderness, meningismus, lymphadenopathy Respiratory exam: Present: normal lung sounds bilaterally. Absent: respiratory distress, wheezes, rales, rhonchi, stridor Cardiovascular Exam: Present: tachycardia, irregular rhythm, normal heart sounds. Absent: regular rate, normal rhythm, systolic murmur, diastolic murmur, rubs, gallop, clicks GI/Abdominal exam: Present: soft, normal bowel sounds. Absent: distended, tenderness, guarding, rebound, rigid Course Vital Signs 07/04/24 20:50 Temperature 97.4 F L Pulse Rate 75 Respiratory 18 Rate Blood Pressure 142/79 O2 Sat by Pulse 97 Oximetry EKG Findings - EKG Comments: EKG Findings:: EKG performed at 20: 57 A-fib with a rate of 79 QRS 93 QTc QTc 396/403 - EKG Results: EKG: interpreted by CANDIDA Medical Decision Making - Medical Decision Making Was pt. sent in by a medical professional or institution (, PA, CORRECTIONAL GUARD, urgent care, hospital, or [place] health care facility...) When possible be specific @ -[facility] Did you speak to anyone other than the patient for history (EMS, parent, family, police, friend...)? What history was obtained from this source @ -No Did you review nursing and triage notes (agree or disagree)? Why? @ -I reviewed and agree with nursing and triage notes Were old charts reviewed (outside hosp., previous admission, EMS record, old EKG, old radiological studies, urgent care reports/EKG's, [place] health [place] facility records)? Report findings @ -Viewed records from [place] Differential Diagnosis (chest pain, altered mental status, abdominal pain women, abdominal pain men, vaginal bleeding, weakness, fever, dyspnea, syncope, headache, dizziness, GI bleed, back pain, seizure, CVA, palpatations, mental health, musculoskeletal)? @ -Chest pain differential Chest Pain: Stable Angina, Unstable Angina, STEMI, NSTEMI Aortic Dissection, Pneumothorax, Musculoskeletal, Esophageal Spasm GERD, Cholecystitis, Pancreatitis, Zoster, this is not meant to be an all-inclusive list. EKG interpreted by me (3pts min.). @ -As above X-rays interpreted by me (1pt min.). @ -None done CT interpreted by me (1pt min.). @ -None done U/S interpreted by me (1pt. min.). @ -None done What testing was considered but not performed or refused? (CT, X-rays, U/S, labs)? Why? @ -None What meds were considered but not given or refused? Why? @ -None Did you discuss the management of the patient with other professionals (professionals i.e. , PA, CORRECTIONAL GUARD, lab, RT, psych nurse, social studies teacher, steaming machine operator, teacher, facility security officer, rehabilitation case coordinator)? Give summary @ -[EMH for admission Was smoking cessation discussed for >3mins.? @ -No Was critical care preformed (if so, how long)? @ -No Were there social determinants of health that impacted care today? How? (Homelessness, low income, unemployed, alcoholism, drug addiction, transportation, low edu. Level, literacy, decrease access to med. care, fdc, rehab)? @ -No Was there de-escalation of care discussed even if they declined (Discuss DNR or withdrawal of care, Hospice)? DNR status @ -No What co-morbidities impacted this encounter? (DM, HTN, Smoking, COPD, CAD, Cancer, CVA, ARF, Chemo, Hep., AIDS, mental health diagnosis, sleep apnea, morbi d obesity)? @ -None Was patient admitted / discharged? Hospital course, mention meds given and route , prescriptions, significant lab abnormalities, going to OR and other pertinent info. @ -[Admitted patient presented for A-fib RVR as a transfer. Patient also has notable UTI, left eye infection. Per records this is been an ongoing issue of the left eye patient will have consult to see ophthalmology and cardiology patient placed on oral antibiotics outpatient will place an IV antibiotics and eyedrops. Undiagnosed new problem with uncertain prognosis? @ -No Drug Therapy requiring intensive monitoring for toxicity (Heparin, Nitro, Insulin, Cardizem)? @ -No Were any procedures done? @ -No Diagnosis/symptom? @ -[UTI, A-fib RVR, left eye infection Acute, or Chronic, or Acute on Chronic? @ -Acute Uncomplicated (without systemic symptoms) or Complicated (systemic symptoms)? @ -Complicated Side effects of treatment? @ -No Exacerbation, Progression, or Severe Exacerbation? @ -No Poses a threat to life or bodily function? How? (Chest pain, [place], CA, pneumonia, PE, COPD, DKA, ARF, appy, cholecystitis, CVA, Diverticulitis, Homicidal, Suicidal, threat to staff... and all critical care pts) @ -No - Lab Data Result diagrams: 07/04/24 21:37 07/04/24 21:37 Lab Results 07/04/24 07/04/24 07/04/24 Range/Units 21:37 21:37 21:37 WBC 13.21 H (4.50-10.00) 10*3/uL RBC 4.36 L (4.40-5.60) 10*6/uL Hgb 13.0 (13.0-17.0) g/dL Hct 38.5 L (39.6-50.0) % MCV 88.3 (80.0-97.0) fL MCH 29.8 (27.0-32.0) pg MCHC 33.8 (32.0-37.0) g/dL Plt Count 157 (140-440) 10*3/uL MPV 10.5 (9.5-12.2) fL Immature Gran % (Auto) 0.3 % Neutrophils % 76.7 % Lymphocytes % 13.6 % Monocytes % 9.0 % Eosinophils % 0.2 % Basophils % 0.2 % Immature Gran # 0.04 (0.00-0.04) 10*3/uL Neutrophils # 10.14 H (1.80-7.70) 10*3/uL Lymphocytes # 1.79 (0.90-5.00) 10*3/uL Monocytes # 1.19 H (0.20-1.00) 10*3/uL Eosinophils # 0.02 L (0.04-0.35) 10*3/uL Basophils # 0.03 (0.00-0.10) 10*3/uL Sodium 135 L (137-145) mmol/L Potassium 4.0 (3.5-5.1) mmol/L Chloride 103 (98-107) mmol/L Carbon Dioxide 24 (22-30) mmol/L Anion Gap 8 mmol/L BUN 25 H (9-20) mg/dL Creatinine 0.95 (0.66-1.25) mg/dL Est GFR (CKD-EPI)AfAm 85 (>60 ml/min/1.73 sqM) Est GFR (CKD-EPI)NonAf 73 (>60 ml/min/1.73 sqM) Glucose 97 (74-99) mg/dL Calcium 8.9 (8.4-10.2) mg/dL Total Bilirubin 0.8 (0.2-1.3) mg/dL AST 50 (17-59) U/L ALT 26 (4-49) U/L Alkaline Phosphatase 79 (38-126) U/L Troponin I 0.060 H* (0.000-0.034) ng/mL Total Protein 6.5 (6.3-8.2) g/dL Albumin 3.3 L (3.5-5.0) g/dL Disposition Clinical Impression: Atrial fibrillation with rapid ventricular response, UTI (urinary tract infec tion), Eye infection Disposition: ADMITTED IP TO THIS HOSP Condition: Poor Referrals: Jose Juan Watson MD [Primary Care Provider] - 1-2 days Time of Disposition: 22:28
[2024-07-04 21:44] LABS: Basophils # (A) 0.03 10*3/uL (0.00-0.10); Basophils % (A) 0.2 %; Eosinophils # (A) 0.02 10*3/uL (0.04-0.35); Eosinophils % (A) 0.2 %; HCT 38.5 % (39.6-50.0); Lymphocytes # (A) 1.79 10*3/uL (0.90-5.00); Lymphocytes % (A) 13.6 %; MCH 29.8 pg (27.0-32.0); MCHC 33.8 g/dL (32.0-37.0); MCV 88.3 fL (80.0-97.0); Mean Platelet Volume 10.5 fL (9.5-12.2); Monocytes # (A) 1.19 10*3/uL (0.20-1.00); Neutrophils # (A) 10.14 10*3/uL (1.80-7.70); Neutrophils % (A) 76.7 %; Platelet Count 157 10*3/uL (140-440); RBC 4.36 10*6/uL (4.40-5.60); RDW 12.7 % (11.5-14.5); WBC 13.21 10*3/uL (4.50-10.00)
[2024-07-04 21:54] LABS: ALT 26 U/L (4-49); AST 50 U/L (17-59); African American GFR (CKD) 85 (>60 ml/min/1.73 sqM); Albumin 3.3 g/dL (3.5-5.0); Alkaline Phosphatase 79 U/L (38-126); Anion Gap 8 mmol/L; Blood Urea Nitrogen 25 mg/dL (9-20); Calcium 8.9 mg/dL (8.4-10.2); Carbon Dioxide 24 mmol/L (22-30); Chloride 103 mmol/L (98-107); Glucose 97 mg/dL (74-99); Non-African American GFR(CKD) 73 (>60 ml/min/1.73 sqM); Sodium 135 mmol/L (137-145); Total Bilirubin 0.8 mg/dL (0.2-1.3); Total Protein 6.5 g/dL (6.3-8.2)
[2024-07-04] MEDS ORDERED: NITROGLYCERIN SL TABS 0.4 MG TAB SUBLINGUAL PRN (22:23)
[2024-07-04] MEDS: MOXIFLOXACIN HCL 0.5% DROPS 3 ML BTL LEFT EYE SCH (22:32)
[2024-07-04 22:43] LABS: Appearance,Urine Cloudy (Clear); Bacteria,Urine Moderate /hpf; Bilirubin,Urine Negative (Negative); Blood,Urine Moderate (Negative); Color,Urine Light Yellow; Glucose,Urine (UA) Negative (Negative); Ketones,Urine Trace (Negative); Leukocyte Esterase,Urine Large (Negative); Mucus,Urine Rare /hpf; Nitrite,Urine Positive (Negative); PH, Urine 5.5 (5.0-8.0); Protein,Urine Trace (Negative); RBC,Urine 10 /hpf (0-5); Specific Gravity,Urine 1.015 (1.001-1.035); Urobilinogen,Urine <2.0 mg/dL (<2.0); WBC,Urine >182 /hpf (0-5)
[2024-07-04] MEDS ORDERED: HEPARIN SODIUM 1,000 UN/ML (10ML VL) IV PRN (23:59)
[2024-07-05] MEDS: HEPARIN SOD,PORK IN 0.45% NACL 25,000 UNIT in 0.45% NACL 1 250ML.BAG IV SCH (01:10)
[2024-07-05] MEDS: HEPARIN SODIUM 1,000 UN/ML (10ML VL) IV ONE (01:13)
[2024-07-05] MEDS: DILTIAZEM 125 MG in SODIUM CHLORIDE 0.9% 100 ML IV SCH (01:15)
[2024-07-05] MEDS: ACETAMINOPHEN TAB 325 MG TAB PO PRN (05:06)
[2024-07-05] MEDS: METOPROLOL SUCCINATE (ER) 25 MG TAB.ER.24H PO SCH ×2 (08:37→09:57)
[2024-07-05] MEDS: ASPIRIN 81 MG PO SCH (08:37)
[2024-07-05] MEDS: LOSARTAN 50 MG TAB PO SCH (08:37)
[2024-07-05] MEDS: ISOSORBIDE MONONITRATE ER 30 MG TAB.ER.24H PO SCH (08:37)
[2024-07-05] MEDS: APIXABAN 5 MG TAB PO SCH (08:58)
[2024-07-05] MEDS ORDERED: ASPIRIN 325 MG TAB PO SCH (09:00)
[2024-07-05] MEDS ORDERED: APIXABAN 5 MG TAB PO SCH (09:00)
--- NOTE | 2024-07-05 10:33 | P.CRDCN ---
History of Present Illness Consult date: 07/05/24 Consult reason: atrial fibrillation History of present illness: This is an 84-year-old male patient of Dr. Pagan with past medical history of coronary artery disease with prior angioplasty and stent placement of the circumflex coronary artery, hypertension, dyslipidemia, paroxysmal atrial fibrillation. We have been asked to evaluate the patient for atrial fibrillation. Patient initially presented to [facility]. Patient states that he went into the hospital due to a left eye infection that started 3 to 4 days ago. He also has a history of glaucoma. He states he has had some chest pain on the right side and lateral chest that has been chronic and comes and goes. He denies shortness of breath. No dizziness or syncopal episodes. He does complain of headache. No palpitations. He has chronic lower extremity edema that is not worsening. He states that he would not be in the hospital if he had not come in for his eye infection. Patient apparently was found to be in A-fib with RVR and transferred to [facility]. Patient remains in atrial fibrillation with controlled rate. Blood pressure 121/82, heart rate is in the 80s and remains in atrial fibrillation. Patient is seen today in the emergency center waiting for a bed on the cardiac stepdown unit. Patient has been started on heparin drip and Eliquis on hold. -EKG: Atrial fibrillation with ventricular rate of 79, atrial fibrillation with ventricular rate of 107, atrial fibrillation with ventricular rate of 99. -Chest x-ray: -Laboratory studies: WBC 13.2, hemoglobin 13, sodium 135, potassium 4, BUN 25 and creatinine 0.9. Troponin 0.06, 0.07, 0.05. Urine positive for UTI. -Home cardiac medications: -Lexiscan Cardiolite stress test performed at [facility] on 11/30/2023 revealed no evidence of reversible ischemia. - Echocardiogram performed 09/20/2020 revealed EF 55%, mild MR, mild TR. -Cardiac catheterization performed 09/20/2020 revealed nondominant large circumflex proximal and mid lesion of 90%, LAD 35 to 40% mid portion and some selective injection of RCA shows a 40% lesion. Patient subsequently underwent stenting of the proximal and mid circumflex with [place] on same date. Review Of Systems: At the time of my exam: CONSTITUTIONAL: Denies fever or chills. HEENT: Reports left eye infection. Denies hemoptysis CARDIOVASCULAR: Denies chest pain. Denies orthopnea. Denies PND. Denies palpitations RESPIRATORY: Denies shortness of breath. GASTROINTESTINAL: Denies abdominal pain. Denies nausea or vomiting. HEMATOLOGIC: Denies bleeding disorders. GENITOURINARY: Denies any blood in urine. SKIN: Denies puritis. Denies rash. Physical examination: Gen: This is an 84-year-old male in no acute respiratory distress. VS: reviewed HEENT: Head is atraumatic, normocephalic. Pupils equal, round. Sclerae is anicteric. NECK: Supple. No JVD. LUNGS: Clear to auscultation. No wheezes or rhonchi. No intercostal retractions. HEART: Irregular rate and rhythm. No murmur. ABDOMEN: Soft No tenderness. EXTREMITIES: Bilateral lower extremity edema. No calf tenderness. NEUROLOGICAL: Patient is awake, alert and oriented x3. Assessment: Paroxysmal atrial fibrillation, currently rate controlled Flat troponin secondary to atrial fibrillation, acute coronary syndrome ruled out Possible urinary tract infection CAD with prior angioplasty and stent placement of the circumflex Hypertension Dyslipidemia Plan: Resume patient's home cardiac medications Discontinue heparin drip and resume patient's Eliquis but increase to 5 mg twice daily Start patient on Toprol XL 25 mg twice daily and wean off Cardizem drip if rate is controlled Obtain 2-D echocardiogram and Doppler study to assess cardiac structure and function Further recommendations to follow based upon clinical course Thank you kindly for this consultation. Nurse practitioner note has been reviewed, I agree with documented findings and plan of care. Patient was seen and examined. Past Medical History Past Medical History: Atrial Fibrillation, Dementia, Hyperlipidemia, Hypertension, Osteoarthritis (OA) Additional Past Medical History / Comment(s): BPH History of Any Multi-Drug Resistant Organisms: None Reported Past Surgical History: No Surgical Hx Reported Past Anesthesia/Blood Transfusion Reactions: No Reported Reaction Past Psychological History: No Psychological Hx Reported Smoking Status: Former smoker Past Alcohol Use History: None Reported Past Drug Use History: None Reported - Past Family History Family Additional Family Medical History / Comment(s): Father with heart disease Medications and Allergies Home Medications Medication Instructions Recorded Confirmed Type Brimonidine Tartrate/Timolol 1 drop BOTH EYES BID 09/20/20 11/28/23 History [Combigan 0.2%-0.5% Eye Drops] Latanoprost [Xalatan 0.005%] 1 drop BOTH EYES HS 09/20/20 11/28/23 History Tamsulosin [Flomax] 0.4 mg PO HS 09/20/20 11/28/23 History Apixaban [Eliquis] 2.5 mg PO BID 10/04/23 11/28/23 History Atorvastatin [Lipitor] 80 mg PO HS 10/04/23 11/28/23 History Memantine [Namenda] 10 mg PO BID 10/04/23 11/28/23 History Nystatin 1 applic TOPICAL BID PRN 10/04/23 11/28/23 History Albuterol Inhaler [Ventolin Hfa 2 puff INHALATION RT-QID PRN 11/28/23 11/28/23 History Inhaler] Docusate [Colace] 100 mg PO DAILY 11/28/23 11/28/23 History Metoprolol Succinate (ER) [Toprol 12.5 mg PO DAILY #30 tab 11/30/23 Rx XL] Allergies Allergy/AdvReac Type Severity Reaction Status Date / Time No Known Allergies Allergy Verified 07/04/24 20:49 Physical Exam Vitals: Vital Signs Temp Pulse Resp BP Pulse Ox 07/05/24 01:33 98.0 F 101 H 19 121/82 97 07/04/24 23:35 132 H 16 97 07/04/24 20:50 97.4 F L 75 18 142/79 97 Intake and Output 07/04/24 07/05/24 07/05/24 22:59 06:59 14:59 Other: Weight 70.307 kg Results 07/04/24 21:37 07/04/24 21:37 Cardiac Enzymes 07/04/24 07/04/24 07/05/24 Range/Units 21:37 21:37 00:41 AST 50 (17-59) U/L Troponin I 0.060 H* 0.074 H* (0.000-0.034) ng/mL 07/05/24 Range/Units 06:09 AST (17-59) U/L Troponin I 0.056 H* (0.000-0.034) ng/mL Coagulation 07/05/24 07/05/24 Range/Units 00:41 06:09 APTT 26.7 66.6 H (22.0-30.0) sec CBC 07/04/24 Range/Units 21:37 WBC 13.21 H (4.50-10.00) 10*3/uL RBC 4.36 L (4.40-5.60) 10*6/uL Hgb 13.0 (13.0-17.0) g/dL Hct 38.5 L (39.6-50.0) % Plt Count 157 (140-440) 10*3/uL Comprehensive Metabolic Panel 07/04/24 Range/Units 21:37 Sodium 135 L (137-145) mmol/L Potassium 4.0 (3.5-5.1) mmol/L Chloride 103 (98-107) mmol/L Carbon Dioxide 24 (22-30) mmol/L BUN 25 H (9-20) mg/dL Creatinine 0.95 (0.66-1.25) mg/dL Glucose 97 (74-99) mg/dL Calcium 8.9 (8.4-10.2) mg/dL AST 50 (17-59) U/L ALT 26 (4-49) U/L Alkaline Phosphatase 79 (38-126) U/L Total Protein 6.5 (6.3-8.2) g/dL Albumin 3.3 L (3.5-5.0) g/dL Current Medications Generic Name Dose Route Start Last Admin Trade Name Freq PRN Reason Stop Dose Admin Acetaminophen 650 mg 07/05/24 04:47 07/05/24 05:06 Acetaminophen Tab 325 Mg Tab PO 650 mg Q6HR PRN Administration Fever and/ or Pain Aspirin 325 mg 07/05/24 09:00 Aspirin 325 Mg Tab PO DAILY [facility] Heparin Sodium (Porcine) 0 unit 07/04/24 23:59 Heparin Sodium 1,000 Un/Ml (10ml Vl) IV PER PROTOCOL PRN Low PTT Protocol Ceftriaxone Sodium 2 gm/ 50 mls @ 100 mls/hr 07/05/24 09:00 Sodium Chloride IVPB Q24HR [facility] Protocol Heparin Sodium/Sodium Chloride 250 mls @ 8.437 mls/hr 07/04/24 23:45 07/05/24 01:10 25,000 unit/ Sodium Chloride IV 12 units/kg/hr .Q24H [facility] 8.437 mls/hr Administration Protocol 12 UNITS/KG/HR Diltiazem HCl 125 mg/ Sodium 125 mls @ 5 mls/hr 07/05/24 00:15 07/05/24 01:15 Chloride IV 5 mg/hr .Q24H NIXON 5 mls/hr Administration 5 MG/HR Moxifloxacin HCl 1 drops 07/04/24 22:00 07/04/24 22:32 Moxifloxacin Hcl 0.5% Drops 3 Ml Btl LEFT EYE 1 drops TID [facility]IXON Administration Nitroglycerin 0.4 mg 07/04/24 22:23 Nitroglycerin Sl Tabs 0.4 Mg Tab SUBLINGUAL Q5M PRN Chest Pain Intake and Output 07/04/24 07/05/24 07/05/24 22:59 06:59 14:59 Other: Weight 70.307 kg 07/04/24 21:37 07/04/24 21:37
[2024-07-05] MEDS ORDERED: ALBUTEROL NEBULIZED 2.5 MG/3 ML INHALATION PRN (14:04)
--- NOTE | 2024-07-05 14:38 | XR ---
EXAMINATION TYPE: XR chest 1V portable DATE OF EXAM: 07/05/2024 CLINICAL INDICATION: Male, 84 years old with history of chf, progress study. TECHNIQUE: Single AP portable semiupright view of the chest is obtained. COMPARISON: Chest x-ray from November 29, 2023 FINDINGS: Osseous structures remain demineralized. There is mild cardiomegaly with atherosclerotic a nd ectatic thoracic aorta causing right-sided tracheal deviation redemonstrated. There is chronic par enchymal changes bilaterally with persistent right upper lung and basilar increased opacities. IMPRESSION: Persistent right upper and basilar increased opacities. Cannot exclude acute infiltrates versus scarring/atelectasis. Cardiomegaly is redemonstrated. [facility], , 07/05/2024 2:36 PM
[2024-07-05] MEDS: HYDROcodone/APAP 5-325MG 1 EACH TAB PO PRN (14:54)
[2024-07-05 16:07] LABS: Influenza A Not Detected (Not Detectd); Influenza B Not Detected (Not Detectd); RSV Not Detected (Not Detectd)
[2024-07-05] MEDS: PIPERACILLIN-TAZOBACTAM 3.375 GM in SODIUM CHLORIDE 0.9% 100 ML IVPB SCH (16:34)
--- NOTE | 2024-07-05 16:56 | CT ---
EXAMINATION TYPE: CT orbits wo con DATE OF EXAM: 07/05/2024 4:33 PM COMPARISON: None. CLINICAL INDICATION: Male, 84 years old with history of Severe left eye infection; PHH, Severe left e ye infection TECHNIQUE: Orbits: Axial CT with coronal and sagittal reformats through the orbits. No IV or oral contrast was u tilized. CT DLP: 364.8 mGycm, Automated exposure control for dose reduction was used. Findings: Orbital Contents: * Globes: Bilaterally aphakia. * Preseptal Tissues: Soft tissue edema most pronounced along the left preseptal soft tissues. * Intraconal Structures: Mild left Fat stranding that is asymmetric compared to the right side. * Extraconal Structures and Lacrimal Glands: Normal. * Orbital [place]: Normal. Sella Turcica and Cavernous Sinuses: The sella turcica and cavernous sinus regions are intact and sym metric. Visualized Brain Parenchyma: , Mild cerebral atrophy. Proportional dilatation of ventricular system. Atherosclerosis of the intracranial vasculature. Paranasal Sinuses and Surrounding Structures: The paranasal sinuses are intact. The mastoid air cells and skull base is intact. Musculoskeletal: No evidence of fracture. Rightward deviated nasal septum with left chronic nasal bon e fracture. Other: Soft tissues are within normal limits. IMPRESSION: 1. Evidence of preseptal cellulitis of the left orbit with possible early orbital cellulitis compare d to the contralateral side. No evidence of mass. 2. Examination fluid collections. 3. Rightward deviated nasal septum with suspected left chronic nasal bone fracture. Correlate with albino haynes. [facility], , 07/05/2024 4:54 PM
[2024-07-05] MEDS: prednisoLONE ACETATE 1% OPHTH DROPS 5 ML BTL LEFT EYE SCH (18:38)
[2024-07-05] MEDS: ATORVASTATIN 80 MG TAB PO SCH (20:32)
[2024-07-05] MEDS: TIMOLOL 0.5% OPHTH DROPS 5 ML BTL BOTH EYES SCH (20:33)
[2024-07-05] MEDS: BRIMONIDINE TARTRATE 0.2% DROPS 5 ML BTL BOTH EYES SCH (20:33)
[2024-07-05] MEDS: MEMANTINE 10 MG TAB PO SCH (22:34)
--- NOTE | 2024-07-05 22:44 | HP ---
HISTORY AND PHYSICAL CHIEF COMPLAINT: Palpitations and left eye infection. HISTORY OF PRESENT ILLNESS: This is an 84-year-old gentleman with a past medical history of multiple medical problems ECF before Dr. Watson in the outpatient setting, was complaining of left eye infection for the last several days. The patient had glaucoma also. The patient has some baseline dementia. The patient was also found to have atrial fibrillation with fast ventricular rate and the patient was sent to [facility] and was admitted for further evaluation and treatment. The patient is being started on beta blockers by Cardiology. There is no history of any fever, rigors, or chills at this time. PAST MEDICAL HISTORY: Reviewed include atrial fibrillation, and dementia. Rest of the history and rest of the chart is also reviewed. HOME MEDICATIONS: Reviewed include Cozaar. Dose and rest of medications reviewed. ALLERGIES: None. FAMILY HISTORY: History of heart disease in the family. SOCIAL HISTORY: Previous history of smoking. REVIEW OF SYSTEMS: Fourteen-point review of systems is negative except as mentioned earlier. PHYSICAL EXAMINATION: VITAL SIGNS: Pulse 97, blood pressure 107/65, respirations 18. HEENT: Conjunctivae normal. NECK: No JVD. CARDIOVASCULAR: S1, S2. RESPIRATIONS: Breath sounds diminished at the bases. Scattered rhonchi. ABDOMEN: Soft, nontender. LEGS: No edema. NERVOUS SYSTEM: Diffusely weak. LABORATORY DATA: Troponin 0.074. UA noted. WBC 13.1. ASSESSMENT: 1. Atrial fibrillation with fast ventricular rate. 2. Troponin up to 0.074. Rule out acute tcz-IC-alholkn-elevation myocardial infarction. 3. Left eye infection. 4. Glaucoma. 5. Rule out urinary tract infection. 6. Elevated WBC. 7. History of dementia. 8. Hypertension. 9. Hyperlipidemia. 10.Multiple complex medical issues. RECOMMENDATIONS AND DISCUSSION: This is an 84-year-old gentleman, who presented with multiple complex medical issues, we will monitor the patient closely. Recommend empiric antibiotics and obtain cultures. Infectious Disease evaluation. Cardiology consultation. 2D echo with Doppler. I would also order Ophthalmology consultation for the glaucoma. Resume the home medications. Guarded prognosis because of the multiple complex medical issues. Further recommendations to follow. I would also recommend CT scan of the orbit also. MMODL / IJN: [id number] /
[2024-07-05] MEDS ORDERED: VANCOMYCIN IV PER PHARMACY 1 EACH MISC MISCELLANE PRN (23:27)
--- NOTE | 2024-07-05 23:29 | P.CONS ---
History of Present Illness - Reason for Consult Consult date: 07/05/24 Left eye infection Requesting physician: Dornee Marin - Chief Complaint Left eye pain swelling and redness x days - History of Present Illness Patient is a 84-year-old male with a past medical history significant for dementia atrial fibrillation hypertension hyperlipidemia osteoarthritis presented initially to the [facility] for left eye infection with the patient was noticed to be A-fib with RVR subsequently has been transferred to [facility] for further evaluation patient has been complaining of problem with the left eye pain swelling and drainage of the last 3 to 4 days however he seemed to have a problem with the redness vision to the left eye prior to that patient denies having any fever or any chills and nausea have recorded on presentation to hospital has been complaining of some dull aching pain to the left thigh area without any radiation with associated swelling redness and did have some drainage patient on presentation to hospital was afebrile he was mildly tachycardic but not hypotensive or hypoxic patient did have white count of 13.21 creatinine is 0.95 liver enzymes are normal troponins are positive urine has been positive troponins are positive urine has been positive influenza RSV COVID testing has been negative culture have been obtained from the left eye patient did have a chest x-ray persistent right upper and basilar increased opacity cannot exclude acute infiltrate had a normal CT soft tissue edema more pronounced along the left preseptal soft tissue patient has been started on Rocephin as well as Zosyn infectious disease was consulted for left eye infection Review of Systems Positive point and negatives has been mentioned in the HPI, complete review of systems was performed and all other systems are negative Past Medical History Past Medical History: Atrial Fibrillation, Dementia, Hyperlipidemia, Hypertension, Osteoarthritis (OA) Additional Past Medical History / Comment(s): BPH History of Any Multi-Drug Resistant Organisms: None Reported Past Surgical History: No Surgical Hx Reported Past Anesthesia/Blood Transfusion Reactions: No Reported Reaction Past Psychological History: No Psychological Hx Reported Smoking Status: Former smoker Past Alcohol Use History: None Reported Past Drug Use History: None Reported - Past Family History Family Additional Family Medical History / Comment(s): Father with heart disease Medications and Allergies Home Medications Medication Instructions Recorded Confirmed Type Apixaban [Eliquis] 2.5 mg PO BID 10/04/23 07/05/24 History Atorvastatin [Lipitor] 80 mg PO HS 10/04/23 07/05/24 History Memantine [Namenda] 10 mg PO BID 10/04/23 07/05/24 History Albuterol Nebulized [Ventolin 2.5 mg INHALATION RT-TID PRN 07/05/24 07/05/24 History Nebulized] Brimonidine Tartrate [Alphagan P 1 drop BOTH EYES BID 07/05/24 07/05/24 History 0.2% Ophth Soln] Isosorbide Mononitrate ER [Imdur] 30 mg PO DAILY 07/05/24 07/05/24 History Losartan [Cozaar] 25 mg PO DAILY 07/05/24 07/05/24 History Nitroglycerin Sl Tabs [Nitrostat] 0.4 mg SUBLINGUAL Q5M PRN 07/05/24 07/05/24 Hi story Timolol 0.5% Ophth Soln [Timoptic 1 drop BOTH EYES BID 07/05/24 07/05/24 History 0.5% Ophth Soln] prednisoLONE ACETATE 1% OPHTH 1 drop LEFT EYE QID 07/05/24 07/05/24 History [Pred Forte 1%] Allergies Allergy/AdvReac Type Severity Reaction Status Date / Time No Known Allergies Allergy Verified 07/05/24 11:50 Physical Exam Vitals: Vital Signs Temp Pulse Resp BP Pulse Ox 07/05/24 16:39 98.5 F 117 H 19 139/106 97 07/05/24 14:05 102 H 18 110/97 98 07/05/24 13:05 98 16 115/89 98 07/05/24 12:15 97 18 107/65 97 07/05/24 11:29 85 18 95/67 98 07/05/24 11:14 86 18 89/63 98 07/05/24 10:43 92 18 100/73 97 07/05/24 09:25 98.2 F 108 H 19 112/95 98 07/05/24 07:55 104 H 20 134/92 96 07/05/24 01:33 98.0 F 101 H 19 121/82 97 07/04/24 23:35 132 H 16 97 07/04/24 20:50 97.4 F L 75 18 142/79 97 Intake and Output 07/05/24 07/05/24 07/05/24 06:59 14:59 22:59 Intake Total 120.689 Balance 120.689 Intake: Intake, IV Titration 120.689 Amount Diltiazem 125 mg In 55.583 Sodium Chloride 0.9% 100 ml @ 5 MG/HR 5 mls/hr IV .Q24H [facility] Rx#:[id number] Heparin Sod,Pork in 0.45% 65.106 NaCl 25,000 unit In 0.45 % NaCl 1 250ml.bag @ 12 UNITS/KG/HR 8.437 mls/hr IV .Q24H [facility] Rx#: [id number] GENERAL DESCRIPTION: Elderly male lying in bed, no distress. No tachypnea or accessory muscle of respiration use. HEENT: Left eye is currently shut with swelling and some drainage oral mucous m embrane is dry. No pharyngeal erythema or thrush NECK: Trachea central, no thyromegaly. LUNGS: Unlabored breathing. Clear to auscultation anteriorly. No wheeze or crackle. HEART: S1, S2, regular rate and rhythm. No loud murmur ABDOMEN: Soft, no tenderness , guarding or rigidity, no organomegaly EXTREMITIES: No edema of feet. SKIN: No rash, no masses palpable. NEUROLOGICAL: The patient is awake, alert, oriented x3, mood and affect normal. Results CBC & Chem 7: 07/04/24 21:37 07/04/24 21:37 Labs: Abnormal Lab Results - Last 24 Hours (Table) 07/04/24 07/04/24 07/04/24 Range/Units 21:37 21:37 21:37 WBC 13.21 H (4.50-10.00) 10*3/uL RBC 4.36 L (4.40-5.60) 10*6/uL Hct 38.5 L (39.6-50.0) % Neutrophils # 10.14 H (1.80-7.70) 10*3/uL Monocytes # 1.19 H (0.20-1.00) 10*3/uL Eosinophils # 0.02 L (0.04-0.35) 10*3/uL APTT (22.0-30.0) sec Sodium 135 L (137-145) mmol/L BUN 25 H (9-20) mg/dL Troponin I 0.060 H* (0.000-0.034) ng/mL Albumin 3.3 L (3.5-5.0) g/dL Urine Protein (Negative) Urine Ketones (Negative) Urine Blood (Negative) Ur Leukocyte Esterase (Negative) Urine RBC (0-5) /hpf Urine WBC (0-5) /hpf Urine WBC Clumps (None) /hpf Urine Bacteria (None) /hpf Urine Mucus (None) /hpf 07/04/24 07/05/24 07/05/24 Range/Units 22:20 00:41 06:09 WBC (4.50-10.00) 10*3/uL RBC (4.40-5.60) 10*6/uL Hct (39.6-50.0) % Neutrophils # (1.80-7.70) 10*3/uL Monocytes # (0.20-1.00) 10*3/uL Eosinophils # (0.04-0.35) 10*3/uL APTT (22.0-30.0) sec Sodium (137-145) mmol/L BUN (9-20) mg/dL Troponin I 0.074 H* 0.056 H* (0.000-0.034) ng/mL Albumin (3.5-5.0) g/dL Urine Protein Trace H (Negative) Urine Ketones Trace H (Negative) Urine Blood Moderate H (Negative) Ur Leukocyte Esterase Large H (Negative) Urine RBC 10 H (0-5) /hpf Urine WBC >182 H (0-5) /hpf Urine WBC Clumps Few H (None) /hpf Urine Bacteria Moderate H (None) /hpf Urine Mucus Rare H (None) /hpf 07/05/24 Range/Units 06:09 WBC (4.50-10.00) 10*3/uL RBC (4.40-5.60) 10*6/uL Hct (39.6-50.0) % Neutrophils # (1.80-7.70) 10*3/uL Monocytes # (0.20-1.00) 10*3/uL Eosinophils # (0.04-0.35) 10*3/uL APTT 66.6 H (22.0-30.0) sec Sodium (137-145) mmol/L BUN (9-20) mg/dL Troponin I (0.000-0.034) ng/mL Albumin (3.5-5.0) g/dL Urine Protein (Negative) Urine Ketones (Negative) Urine Blood (Negative) Ur Leukocyte Esterase (Negative) Urine RBC (0-5) /hpf Urine WBC (0-5) /hpf Urine WBC Clumps (None) /hpf Urine Bacteria (None) /hpf Urine Mucus (None) /hpf Assessment and Plan (1) Preseptal cellulitis of left eye Current Visit: Yes Status: Acute Code(s): L03.213 - PERIORBITAL CELLULITIS SNOMED Code(s): 383296363 (2) Leukocytosis Current Visit: Yes Status: Acute Code(s): D72.829 - ELEVATED WHITE BLOOD CELL COUNT, UNSPECIFIED SNOMED Code(s): 529720868 Plan: 1patient [facility] left eye pain swelling redness and drainage in this patient has been diagnosed with a preseptal cellulitis and will need to cover for the gram-positive as well as gram-negative pathogen to be the likely pathogen 2-patient to continue with Rocephin however no need for Zosyn to continue the same time we will add vancomycin to cover for the gram-positive We will follow on clinical condition and cultures to further adjust medication if needed Thank you for this consultation we will follow the patient along with you Dictation was produced using [employer] dictation software. please excuse any grammatical, word or spelling errors. Time with Patient: Greater than 30
[2024-07-06] MEDS: VANCOMYCIN 1,000 MG in SODIUM CHLORIDE 0.9% 250 ML IVPB ONE (01:40)
[2024-07-06] MEDS: cefTRIAXone 2 GM in DEXTROSE 5% IN WATER 50 ML IVPB SCH (08:23)
[2024-07-06 08:36] LABS: Basophils # (A) 0.06 X 10*3/uL (0.00-0.10); Basophils % (A) 0.4 %; Eosinophils # (A) 0.05 X 10*3/uL (0.04-0.35); Eosinophils % (A) 0.4 %; Lymphocytes # (A) 1.62 X 10*3/uL (0.90-5.00); Lymphocytes % (A) 12.1 %; MCHC 32.4 g/dL (32.0-37.0); MCV 89.4 FL (80.0-97.0); Mean Platelet Volume 11.4 FL (9.5-12.2); Monocytes # (A) 1.46 X 10*3/uL (0.20-1.00); Monocytes % (A) 10.9 %; NRBC Per 100 WBC 0 X 10*3/uL (0.00-0.01); Neutrophils # (A) 10.14 X 10*3/uL (1.80-7.70); Neutrophils % (A) 75.8 %; Platelet Count 185 X 10*3/uL (140-440); RBC 4.14 X 10*6/uL (4.40-5.60); RDW 13.2 % (11.5-14.5); WBC 13.38 X 10*3/uL (4.50-10.00)
[2024-07-06 08:51] LABS: Calcium 8.3 mg/dL (8.7-10.3); Carbon Dioxide 27.1 mmol/L (21.6-31.8); Chloride 104 mmol/L (96-109); Glucose 91 mg/dL (70-110); Sodium 137 mmol/L (135-145)
--- NOTE | 2024-07-06 10:52 | CA ---
Transthoracic Echo Report Name: Hira Anderson Age: 84 Gender: M : 1940 Exam Date: 07/05/2024 13:58 Exam Location: [place] [facility] Ht (in): 63 Wt (lb): 155 Ordering Physician: Lyric Rodriguez Attending/Referring Phys: Iron Melter Nicole Jaramillo RDCS Procedure CPT: Indications: LVF Cardiac Hx: Technical Quality: Fair Contrast 1: Total Dose (mL): Contrast 2: Total Dose (mL): MEASUREMENTS (Male / Female) Normal Values 2D ECHO LV Diastolic Diameter PLAX 3.6 cm 4.2 - 5.9 / 3.9 - 5.3 cm LV Systolic Diameter PLAX 3.2 cm IVS Diastolic Thickness 1.3 cm 0.6 - 1.0 / 0.6 - 0.9 cm LVPW Diastolic Thickness 1.1 cm 0.6 - 1.0 / 0.6 - 0.9 cm LV Relative Wall Thickness 0.7 RV Internal Dim ED PLAX 1.5 cm LVOT Diameter 1.8 cm Aortic Root Diameter 3.8 cm LA Systolic Diameter LX 3.3 cm 3.0 - 4.0 / 2.7 - 3.8 cm LA Volume 44.1 cm??? 18 - 58 / 22 - 52 cm??? LA Volume Index 24.7 cm???/m??? 16 - 28 cm???/m??? M-MODE Aortic Root Diameter MM 3.7 cm LA Systolic Diameter MM 3.4 cm LA Ao Ratio MM 0.9 AV Cusp Separation MM 1.7 cm DOPPLER AV Peak Velocity 126.7 cm/s AV Peak Gradient 6.4 mmHg AV Mean Velocity 99.3 cm/s AV Mean Gradient 4.3 mmHg AV Velocity Time Integral 23.8 cm AI Peak Velocity 216.4 cm/s AI Peak Gradient 18.7 mmHg AI Pressure Half Time 753.6 ms LVOT Peak Velocity 66.8 cm/s LVOT Peak Gradient 1.8 mmHg LVOT Velocity Time Integral 14.2 cm LVOT Stroke Volume 36.9 cm??? LVOT Stroke Volume Index 21.3 ml/m??? LVOT Cardiac Index 2252.4 cm???/min???m??? AV Area Cont Eq vti 1.6 cm??? AV Area Cont Eq pk 1.4 cm??? MV Area PHT 2.7 cm??? Mitral E Point Velocity 120.4 cm/s Mitral A Point Velocity 123.0 cm/s Mitral E to A Ratio 1.0 MV Deceleration Time 280.4 ms TR Peak Velocity 192.8 cm/s TR Peak Gradient 14.9 mmHg FINDINGS Left Ventricle Left ventricular ejection fraction is estimated at 40 %. Mildly increased septal wall thickness. Left ventricular cavity size normal. Moderately reduced global left ventricular systolic function. Right Ventricle Normal right ventricular size and function. Right ventricular systolic pressure within normal limits. Right Atrium Normal right atrial size. Left Atrium Mild left atrial dilatation. Mitral Valve Mitral valve thickened. [id number] mitral regurgitation. No mitral stenosis. Aortic Valve Diffuse thickening (sclerosis) of the aortic valve cusps without reduced excursion. No aortic stenosis. Trace to mild aortic regurgitation. Tricuspid Valve Structurally normal tricuspid valve. Trace to mild tricuspid regurgitation. No tricuspid stenosis. Pulmonic Valve Structurally normal pulmonic valve. Trace pulmonic regurgitation. No pulmonic stenosis. Pericardium No pericardial or pleural effusion. Aorta Mild aortic dilatation at the level of the sinuses of valsalva (root). CONCLUSIONS Impaired LV function with EF around 40% Aortic sclerosis with no stenosis with mild insufficiency Mild to moderate mitral regurgitation Previewed by: Dr. Shahab Lloyd MD (Electronically Signed) Final Date: 06 July 2024 10:52
--- NOTE | 2024-07-06 11:22 | P.PN ---
Subjective HISTORY OF PRESENT ILLNESS: This is an 84-year-old male patient of Dr. Pagan with past medical history of coronary artery disease with prior angioplasty and stent placement of the circumflex coronary artery, hypertension, dyslipidemia, paroxysmal atrial fibrillation. We have been asked to evaluate the patient for atrial fibrillation. Patient initially presented to [facility]. Patient states that he went into the hospital due to a left eye infection that started 3 to 4 days ago. He also has a history of glaucoma. He states he has had some chest pain on the right side and lateral chest that has been chronic and comes and goes. He denies shortness of breath. No dizziness or syncopal episodes. He does complain of headache. No palpitations. He has chronic lower extremity edema that is not worsening. He states that he would not be in the hospital if he had not come in for his eye infection. Patient apparently was found to be in A-fib with RVR and transferred to [facility]. Patient remains in atrial fibrillation with controlled rate. Blood pressure 121/82, heart rate is in the 80s and remains in atrial fi brillation. Patient is seen today in the emergency center waiting for a bed on the cardiac stepdown unit. Patient has been started on heparin drip and Eliquis on hold. -EKG: Atrial fibrillation with ventricular rate of 79, atrial fibrillation with ventricular rate of 107, atrial fibrillation with ventricular rate of 99. -Chest x-ray: -Laboratory studies: WBC 13.2, hemoglobin 13, sodium 135, potassium 4, BUN 25 and creatinine 0.9. Troponin 0.06, 0.07, 0.05. Urine positive for UTI. -Home cardiac medications: -Lexiscan Cardiolite stress test performed at [facility] on 11/30/2023 revealed no evidence of reversible ischemia. - Echocardiogram performed 09/20/2020 revealed EF 55%, mild MR, mild TR. -Cardiac catheterization performed 09/20/2020 revealed nondominant large circumflex proximal and mid lesion of 90%, LAD 35 to 40% mid portion and some selective injection of RCA shows a 40% lesion. Patient subsequently underwent stenting of the proximal and mid circumflex with [place] on same date. 07/06/2024 Patient examined this morning at the bedside. Patient currently denies chest pain or pressure. She denies shortness of breath. Vital signs are stable. Patient converted to sinus mechanism and is maintaining sinus mechanism at the time of examination. PHYSICAL EXAM: VITAL SIGNS: Reviewed. GENERAL: Well-developed in no acute distress. NECK: Supple. No JVD or thyromegaly LUNGS: Respirations even and unlabored. Lungs essentially clear to auscultation bilaterally. HEART: Regular rate and rhythm. S1 and S2 heard. EXTREMITIES: Normal range of motion. No clubbing or cyanosis. Peripheral pulses intact. No lower extremity edema ASSESSMENT: Paroxysmal atrial fibrillation, currently rate controlled Flat troponin secondary to atrial fibrillation, acute coronary syndrome ruled out Possible urinary tract infection CAD with prior angioplasty and stent placement of the circumflex Hypertension Dyslipidemia PLAN: Continue current cardiac medications Continue telemetry monitoring Patient is currently stable from a cardiac perspective Nurse practitioner note has been reviewed by physician. Signing provider agrees with the documented findings, assessment, and plan of care documented by DUMP MOTOR OPERATOR as a scribe. Objective - Vital Signs Vital signs: Vital Signs Temp 97.9 F 07/06/24 07:26 Pulse 66 07/06/24 07:26 Resp 16 07/06/24 07:26 BP 156/73 07/06/24 07:26 Pulse Ox 97 07/06/24 07:26 FiO2 Intake & Output 07/05/24 07/06/24 07/06/24 18:59 06:59 18:59 Intake Total 220.689 540 Balance 220.689 540 Weight 70.307 kg Intake: Intake, IV Titration 220.689 Amount Diltiazem 125 mg In 55.583 Sodium Chloride 0.9% 100 ml @ 5 MG/HR 5 mls/hr IV .Q24H [facility] Rx#:[id number] Heparin Sod,Pork in 0.45% 65.106 NaCl 25,000 unit In 0.45 % NaCl 1 250ml.bag @ 12 UNITS/KG/HR 8.437 mls/hr IV .Q24H [facility] Rx#: [id number] Piperacillin-Tazobactam 3 100 .375 gm In Sodium Chloride 0.9% 100 ml @ 25 mls/hr IVPB Q8HR [facility] Rx# :[id number] Oral 540 Other: # Voids 3 - Labs CBC & Chem 7: 07/06/24 02:57 07/06/24 02:57 Labs: Abnormal Lab Results - Last 24 Hours (Table) 07/06/24 07/06/24 Range/Units 02:57 02:57 WBC 13.38 H (4.50-10.00) X 10*3/uL RBC 4.14 L (4.40-5.60) X 10*6/uL Hgb 12.0 L (13.0-17.0) g/dL Hct 37.0 L (39.6-50.0) % Immature Gran # 0.05 H (0.00-0.04) X 10*3/uL Neutrophils # 10.14 H (1.80-7.70) X 10*3/uL Monocytes # 1.46 H (0.20-1.00) X 10*3/uL BUN/Creatinine Ratio 23.00 H (12.00-20.00) Ratio Calcium 8.3 L (8.7-10.3) mg/dL Microbiology - Last 24 Hours (Table) 07/04/24 22:20 Urine Culture - Final Urine,Voided 07/04/24 21:26 Blood Culture - Preliminary Blood 07/05/24 14:19 Gram Stain - Preliminary Eye - Left
[2024-07-06] MEDS: DOCUSATE 100 MG CAP PO SCH (16:20)
[2024-07-06] MEDS: VANCOMYCIN 1,250 MG in SODIUM CHLORIDE 0.9% 250 ML IVPB SCH (21:02)
[2024-07-07] MEDS ORDERED: VANCOMYCIN 1,000 MG in SODIUM CHLORIDE 0.9% 250 ML IVPB SCH (02:00)
[2024-07-07 05:20] LABS: African American GFR (CKD) >90 (>60 ml/min/1.73 sqM); Anion Gap 7 mmol/L; Blood Urea Nitrogen 18 mg/dL (9-20); Calcium 8.5 mg/dL (8.4-10.2); Carbon Dioxide 25 mmol/L (22-30); Chloride 104 mmol/L (98-107); Glucose 90 mg/dL (74-99); Non-African American GFR(CKD) 79 (>60 ml/min/1.73 sqM); Potassium 3.7 mmol/L (3.5-5.1); Sodium 136 mmol/L (137-145)
[2024-07-07 08:14] LABS: Basophils # (A) 0.06 X 10*3/uL (0.00-0.10); Basophils % (A) 0.5 %; Eosinophils # (A) 0.14 X 10*3/uL (0.04-0.35); Eosinophils % (A) 1.2 %; HCT 36.2 % (39.6-50.0); HGB 11.5 g/dL (13.0-17.0); Lymphocytes # (A) 1.24 X 10*3/uL (0.90-5.00); Lymphocytes % (A) 10.7 %; MCH 29.1 pg (27.0-32.0); MCHC 31.8 g/dL (32.0-37.0); MCV 91.6 FL (80.0-97.0); Mean Platelet Volume 11.4 FL (9.5-12.2); Monocytes % (A) 11.2 %; NRBC Per 100 WBC 0 X 10*3/uL (0.00-0.01); Neutrophils # (A) 8.78 X 10*3/uL (1.80-7.70); Platelet Count 183 X 10*3/uL (140-440); RBC 3.95 X 10*6/uL (4.40-5.60); RDW 13.1 % (11.5-14.5); WBC 11.57 X 10*3/uL (4.50-10.00)
--- NOTE | 2024-07-07 10:17 | P.PN ---
Subjective Progress Note Date: 07/06/24 This is an 84-year-old male who lives out in the [place] area follows with Dr. Watson in the outpatient setting with a past medical history of glaucoma and some baseline dementia. Patient was noted to be in atrial fibrillation with RVR and sent here for further cardiac evaluation. Patient's medications adjusted and currently rate controlled off of Cardizem drip. Patient noticed to have significant left eye drainage with concerns of infection and was started on antibiotics. Patient reports he has no vision in this eye and is extremely painful and sensitive with significant amounts of drainage. Patient started on antibiotics and consult was placed to ophthalmology although no ophthalmology available as well as infectious disease. Patient is continued on antibiotics and currently awaiting cultures to determine appropriate antibiotics. Patient is showing clinical improvements in the left eye drainage and will continue to monitor closely while awaiting for cultures. Will also have PT/OT therapy evaluate the patient. Review of systems: Constitutional: No reports of fatigue, fever, or chills, reports some continued left eye discomfort and sensitivity to light Cardiovascular: No reports of chest pain or palpitations Respiratory: No reports of shortness of breath or cough GI: No reports of nausea, vomiting, or diarrhea : No reports of dysuria or retention Neurovascular: No reports of weakness or numbness All medications have been reviewed Physical exam: Gen: This is a 84-year-old male who is awake, alert and oriented x 2 baseline, well-developed, elderly appearing HEENT: Head is atraumatic, normocephalic. Pupils equal, round. Sclerae is anicteric. NECK: Supple. No JVD. No lymphadenopathy. No thyromegaly. LUNGS: Diminished breath sounds bilaterally otherwise clear to auscultation. No wheezes or rhonchi. No intercostal retractions. HEART: S1, S2 are muffled, currently rate controlled ABDOMEN: Soft. Bowel sounds are present. No masses. No tenderness. EXTREMITIES: No pedal edema. No calf tenderness. NEUROLOGICAL: Patient is awake, alert and oriented x 2. Cranial nerves 2 through 12 are grossly intact. Assessment: Atrial fibrillation with RVR, currently rate controlled Troponin 0.074, ruled out NSTEMI per cardiology Left eye infection with concerns of periorbital cellulitis, present on admission Glaucoma Possible acute urinary tract infection, present on admission, likely asymptomatic bacteriuria as patient is denying symptoms and urine culture is n egative Elevated white blood count, trending down History of dementia Hypertension Hyperlipidemia History of osteoarthritis Benign prostatic hypertrophy history GI prophylaxis DVT prophylaxis Full code Plan: Patient is continued on antibiotics in the form of vancomycin along with ceftriaxone with infectious disease following awaiting on cultures to finalize. Blood cultures preliminary thus far negative and awaiting on left thigh cultures. Urine culture was initiated in the ER and is negative for any growth. Patient denies any urinary symptoms. Continue with eye care and supportive care. Attempted to have ophthalmology evaluate the patient although per on-call there is no counter tacker available to evaluate and will need outpatient follow-up Awaiting cultures to determine discharge antibiotics Recommend PT/OT therapy evaluation and social work is following in the event patient will require IV antibiotics and will require ECF if this is the case to manage antibiotic treatment as patient lives alone Will follow-up on repeat labs Encouraged increase activity as tolerated The impression and plan of care has been dictated by Dorene Marin, Nurse Practitioner as directed. Dr. Patric MD I have performed a history and examination and MDM of this patient, discussed the same with the dictator, and agree with the dictator's assessment and plan as written ,documented as a scribe. Based on total visit time, I have performed more than 50% of the visit. Objective - Vital Signs Vital signs: Vital Signs Temp 97.8 F 07/07/24 07:04 Pulse 50 L 07/07/24 07:04 Resp 20 07/07/24 07:04 BP 155/84 07/07/24 07:04 Pulse Ox 97 07/07/24 07:04 FiO2 Intake & Output 07/06/24 07/07/24 07/07/24 18:59 06:59 18:59 Intake Total 476 250 Balance 476 250 Intake: Intake, IV Titration 250 Amount Vancomycin 1,250 mg In 250 Sodium Chloride 0.9% 250 ml @ 125 mls/hr IVPB Q24H [facility] Rx#:[id number] Oral 476 Other: # Voids 3 3 - Labs CBC & Chem 7: 07/07/24 03:59 07/07/24 03:59 Labs: Abnormal Lab Results - Last 24 Hours (Table) 07/07/24 07/07/24 Range/Units 03:59 03:59 WBC 11.57 H (4.50-10.00) X 10*3/uL RBC 3.95 L (4.40-5.60) X 10*6/uL Hgb 11.5 L (13.0-17.0) g/dL Hct 36.2 L (39.6-50.0) % MCHC 31.8 L (32.0-37.0) g/dL Immature Gran # 0.05 H (0.00-0.04) X 10*3/uL Neutrophils # 8.78 H (1.80-7.70) X 10*3/uL Monocytes # 1.30 H (0.20-1.00) X 10*3/uL Sodium 136 L (137-145) mmol/L Microbiology - Last 24 Hours (Table) 07/04/24 21:26 Blood Culture - Preliminary Blood 07/05/24 14:19 Gram Stain - Preliminary Eye - Left Eye Culture - Preliminary 07/04/24 22:20 Urine Culture - Final Urine,Voided
--- NOTE | 2024-07-07 13:10 | P.PN ---
Subjective HISTORY OF PRESENT ILLNESS: This is an 84-year-old male patient of Dr. Pagan with past medical history of coronary artery disease with prior angioplasty and stent placement of the circumflex coronary artery, hypertension, dyslipidemia, paroxysmal atrial fibrillation. We have been asked to evaluate the patient for atrial fibrillation. Patient initially presented to [facility]. Patient states that he went into the hospital due to a left eye infection that started 3 to 4 days ago. He also has a history of glaucoma. He states he has had some chest pain on the right side and lateral chest that has been chronic and comes and goes. He denies shortness of breath. No dizziness or syncopal episodes. He does complain of headache. No palpitations. He has chronic lower extremity edema that is not worsening. He states that he would not be in the hospital if he had not come in for his eye infection. Patient apparently was found to be in A-fib with RVR and transferred to [facility]. Patient remains in atrial fibrillation with controlled rate. Blood pressure 121/82, heart rate is in the 80s and remains in atrial fi brillation. Patient is seen today in the emergency center waiting for a bed on the cardiac stepdown unit. Patient has been started on heparin drip and Eliquis on hold. -EKG: Atrial fibrillation with ventricular rate of 79, atrial fibrillation with ventricular rate of 107, atrial fibrillation with ventricular rate of 99. -Chest x-ray: -Laboratory studies: WBC 13.2, hemoglobin 13, sodium 135, potassium 4, BUN 25 and creatinine 0.9. Troponin 0.06, 0.07, 0.05. Urine positive for UTI. -Home cardiac medications: -Lexiscan Cardiolite stress test performed at [facility] on 11/30/2023 revealed no evidence of reversible ischemia. - Echocardiogram performed 09/20/2020 revealed EF 55%, mild MR, mild TR. -Cardiac catheterization performed 09/20/2020 revealed nondominant large circumflex proximal and mid lesion of 90%, LAD 35 to 40% mid portion and some selective injection of RCA shows a 40% lesion. Patient subsequently underwent stenting of the proximal and mid circumflex with [place] on same date. 07/06/2024 Patient examined this morning at the bedside. Patient currently denies chest pain or pressure. She denies shortness of breath. Vital signs are stable. Patient converted to sinus mechanism and is maintaining sinus mechanism at the time of examination. 07/07/2024 Patient examined this morning at bedside. Patient currently denies chest pain or pressure. He denies shortness of breath. Vital signs are stable. PHYSICAL EXAM: VITAL SIGNS: Reviewed. GENERAL: Well-developed in no acute distress. NECK: Supple. No JVD or thyromegaly LUNGS: Respirations even and unlabored. Lungs essentially clear to auscultation bilaterally. HEART: Regular rate and rhythm. S1 and S2 heard. EXTREMITIES: Normal range of motion. No clubbing or cyanosis. Peripheral pulses intact. No lower extremity edema ASSESSMENT: Paroxysmal atrial fibrillation Flat troponin secondary to atrial fibrillation, acute coronary syndrome ruled out Possible urinary tract infection CAD with prior angioplasty and stent placement of the circumflex Hypertension Dyslipidemia PLAN: Continue current cardiac medications Continue telemetry monitoring Patient is currently stable from a cardiac perspective We will sign off. Please reconsult if needed. Nurse practitioner note has been reviewed by physician. Signing provider agrees with the documented findings, assessment, and plan of care documented by LOSS CONTROL REPRESENTATIVE as a scribe. Objective - Vital Signs Vital signs: Vital Signs Temp 98.1 F 07/07/24 12:29 Pulse 55 L 07/07/24 12:29 Resp 20 07/07/24 12:29 BP 138/64 07/07/24 12:29 Pulse Ox 95 07/07/24 12:29 FiO2 Intake & Output 07/06/24 07/07/24 07/07/24 18:59 06:59 18:59 Intake Total 476 250 Balance 476 250 Intake: Intake, IV Titration 250 Amount Vancomycin 1,250 mg In 250 Sodium Chloride 0.9% 250 ml @ 125 mls/hr IVPB Q24H [facility] Rx#:[id number] Oral 476 Other: # Voids 3 3 - Labs CBC & Chem 7: 07/07/24 03:59 07/07/24 03:59 Labs: Abnormal Lab Results - Last 24 Hours (Table) 07/07/24 07/07/24 Range/Units 03:59 03:59 WBC 11.57 H (4.50-10.00) X 10*3/uL RBC 3.95 L (4.40-5.60) X 10*6/uL Hgb 11.5 L (13.0-17.0) g/dL Hct 36.2 L (39.6-50.0) % MCHC 31.8 L (32.0-37.0) g/dL Immature Gran # 0.05 H (0.00-0.04) X 10*3/uL Neutrophils # 8.78 H (1.80-7.70) X 10*3/uL Monocytes # 1.30 H (0.20-1.00) X 10*3/uL Sodium 136 L (137-145) mmol/L Microbiology - Last 24 Hours (Table) 07/05/24 14:19 Gram Stain - Preliminary Eye - Left Eye Culture - Preliminary Coagulase Negative Staph 07/04/24 21:26 Blood Culture - Preliminary Blood 07/04/24 22:20 Urine Culture - Final Urine,Voided
--- NOTE | 2024-07-07 15:06 | P.PN ---
Subjective Progress Note Date: 07/06/24 Principal diagnosis: Reason for follow-up is left preseptal cellulitis Patient is a 84-year-old male with a past medical history significant for dementia atrial fibrillation hypertension hyperlipidemia osteoarthritis presented initially to the [facility] for left eye infection with the patient was noticed to be A-fib with RVR subsequently has been transferred to [facility], patient did have orbital CT concerning for preseptal cellulitis local culture obtained currently pending. On today's evaluation that is 07/06/2024,the patient remains to be afebrile, p atient is on room air not requiring supplemental oxygen and denies any shortness of breath no chest pain or cough.Patient denies having any nausea or vomiting, no abdominal pain and no diarrhea, pain and swelling to the left eye has slightly decreased. The patient white count is 13.88 creatinine is 1.0 Objective - Vital Signs Vital signs: Vital Signs Temp 97.5 F L 07/06/24 12:36 Pulse 62 07/06/24 12:36 Resp 16 07/06/24 12:36 BP 133/66 07/06/24 12:36 Pulse Ox 97 07/06/24 12:36 FiO2 Intake & Output 07/05/24 07/06/24 07/06/24 18:59 06:59 18:59 Intake Total 220.689 540 Balance 220.689 540 Weight 70.307 kg Intake: Intake, IV Titration 220.689 Amount Diltiazem 125 mg In 55.583 Sodium Chloride 0.9% 100 ml @ 5 MG/HR 5 mls/hr IV .Q24H [facility] Rx#:[id number] Heparin Sod,Pork in 0.45% 65.106 NaCl 25,000 unit In 0.45 % NaCl 1 250ml.bag @ 12 UNITS/KG/HR 8.437 mls/hr IV .Q24H [facility] Rx#: [id number] Piperacillin-Tazobactam 3 100 .375 gm In Sodium Chloride 0.9% 100 ml @ 25 mls/hr IVPB Q8HR [facility] Rx# :[id number] Oral 540 Other: # Voids 3 - Exam GENERAL DESCRIPTION: An elderly male lying in bed in no distress HEENT: Left eye and periorbital swelling redness slightly decreased no drainage RESPIRATORY SYSTEM: Unlabored breathing , decreased breath sounds at bases HEART: S1 S2 regular rate and rhythm , ABDOMEN: Soft , no tenderness EXTREMITIES: No edema feet - Labs CBC & Chem 7: 07/07/24 03:59 07/07/24 03:59 Labs: Abnormal Lab Results - Last 24 Hours (Table) 07/06/24 07/06/24 Range/Units 02:57 02:57 WBC 13.38 H (4.50-10.00) X 10*3/uL RBC 4.14 L (4.40-5.60) X 10*6/uL Hgb 12.0 L (13.0-17.0) g/dL Hct 37.0 L (39.6-50.0) % Immature Gran # 0.05 H (0.00-0.04) X 10*3/uL Neutrophils # 10.14 H (1.80-7.70) X 10*3/uL Monocytes # 1.46 H (0.20-1.00) X 10*3/uL BUN/Creatinine Ratio 23.00 H (12.00-20.00) Ratio Calcium 8.3 L (8.7-10.3) mg/dL Microbiology - Last 24 Hours (Table) 07/05/24 14:19 Gram Stain - Preliminary Eye - Left Eye Culture - Preliminary 07/04/24 22:20 Urine Culture - Final Urine,Voided 07/04/24 21:26 Blood Culture - Preliminary Blood Assessment and Plan (1) Preseptal cellulitis of left eye Current Visit: Yes Status: Acute Code(s): L03.213 - PERIORBITAL CELLULITIS SNOMED Code(s): 344123517 (2) Leukocytosis Current Visit: Yes Status: Acute Code(s): D72.829 - ELEVATED WHITE BLOOD CELL COUNT, UNSPECIFIED SNOMED Code(s): 347534831 Plan: 1patient presented hospital left eye pain swelling redness and drainage in this patient has been diagnosed with a preseptal cellulitis and will need to cover for the gram-positive as well as gram-negative pathogen to be the likely pathogen 2-patient did have some clinical improvement we will continue the patient on vancomycin pharmacy to dose on Rocephin while waiting for the culture to finalize Dictation was produced using [employer] dictation software. please excuse any gra mmatical, word or spelling errors. Time with Patient: Less than 30
--- NOTE | 2024-07-07 15:07 | P.PN ---
Subjective Progress Note Date: 07/07/24 Principal diagnosis: Reason for follow-up is left preseptal cellulitis Patient is a 84-year-old male with a past medical history significant for dementia atrial fibrillation hypertension hyperlipidemia osteoarthritis presented initially to the [facility] for left eye infection with the patient was noticed to be A-fib with RVR subsequently has been transferred to [facility], patient did have orbital CT concerning for preseptal cellulitis local culture obtained currently pending. On today's evaluation that is 07/07/2024, the patient continues to be afebrile, the patient is on room air and breathing comfortably, the Pt denies having any chest pain or cough, the patient denies having any abdominal pain no vomiting or any diarrhea complains of some discomfort to the left eye but no worsening and no drainage has been noticed. The patient white count is 11.57 creatinine 0.87 local culture with coagulase- negative staph blood cultures so far negative Objective - Vital Signs Vital signs: Vital Signs Temp 97.8 F 07/07/24 07:04 Pulse 82 07/07/24 08:00 Resp 20 07/07/24 08:00 BP 155/84 07/07/24 07:04 Pulse Ox 97 07/07/24 07:04 FiO2 Intake & Output 07/06/24 07/07/24 07/07/24 18:59 06:59 18:59 Intake Total 476 250 Balance 476 250 Intake: Intake, IV Titration 250 Amount Vancomycin 1,250 mg In 250 Sodium Chloride 0.9% 250 ml @ 125 mls/hr IVPB Q24H [facility] Rx#:[id number] Oral 476 Other: # Voids 3 3 - Exam GENERAL DESCRIPTION: An elderly male lying in bed in no distress HEENT: Left eye and periorbital swelling redness slightly decreased no drainage RESPIRATORY SYSTEM: Unlabored breathing , decreased breath sounds at bases HEART: S1 S2 regular rate and rhythm , ABDOMEN: Soft , no tenderness EXTREMITIES: No edema feet - Labs CBC & Chem 7: 07/07/24 03:59 07/07/24 03:59 Labs: Abnormal Lab Results - Last 24 Hours (Table) 07/07/24 07/07/24 Range/Units 03:59 03:59 WBC 11.57 H (4.50-10.00) X 10*3/uL RBC 3.95 L (4.40-5.60) X 10*6/uL Hgb 11.5 L (13.0-17.0) g/dL Hct 36.2 L (39.6-50.0) % MCHC 31.8 L (32.0-37.0) g/dL Immature Gran # 0.05 H (0.00-0.04) X 10*3/uL Neutrophils # 8.78 H (1.80-7.70) X 10*3/uL Monocytes # 1.30 H (0.20-1.00) X 10*3/uL Sodium 136 L (137-145) mmol/L Microbiology - Last 24 Hours (Table) 07/05/24 14:19 Gram Stain - Preliminary Eye - Left Eye Culture - Preliminary Coagulase Negative Staph 07/04/24 21:26 Blood Culture - Preliminary Blood 07/04/24 22:20 Urine Culture - Final Urine,Voided Assessment and Plan (1) Preseptal cellulitis of left eye Current Visit: Yes Status: Acute Code(s): L03.213 - PERIORBITAL CELLULITIS SNOMED Code(s): 758515601 (2) Leukocytosis Current Visit: Yes Status: Acute Code(s): D72.829 - ELEVATED WHITE BLOOD CELL COUNT, UNSPECIFIED SNOMED Code(s): 456935349 Plan: 1patient [facility] left eye pain swelling redness and drainage in this patient has been diagnosed with a preseptal cellulitis and will need to cover for the gram-positive as well as gram-negative pathogen to be the likely pathogen 2-patient is afebrile patient white count is trending down local culture growing coagulase-negative staph we will have the micro lab with the sensitivity for discharge antibiotic for now we will treat the patient with vancomycin pharmacy to dose and Rocephin while waiting for the culture to finalize Dictation was produced using [employer] dictation software. please excuse any grammatical, word or spelling errors. Time with Patient: Less than 30
[2024-07-07] MEDS: BENZOCAINE/MENTHOL LOZENG 1 EACH LOZENGE MUCOUS MEM PRN (17:54)
[2024-07-07] MEDS: METOPROLOL TARTRATE 50 MG TAB PO STA (22:44)
[2024-07-08] MEDS: DILTIAZEM 125 MG in SODIUM CHLORIDE 0.9% 100 ML IV SCH (02:05)
[2024-07-08 06:41] LABS: Basophils # (A) 0.05 10*3/uL (0.00-0.10); Basophils % (A) 0.5 %; Eosinophils # (A) 0.14 10*3/uL (0.04-0.35); Eosinophils % (A) 1.3 %; HCT 40.7 % (39.6-50.0); HGB 13.4 g/dL (13.0-17.0); Lymphocytes # (A) 1.51 10*3/uL (0.90-5.00); Lymphocytes % (A) 14.3 %; MCH 29.5 pg (27.0-32.0); MCHC 32.9 g/dL (32.0-37.0); MCV 89.6 fL (80.0-97.0); Mean Platelet Volume 10.9 fL (9.5-12.2); Monocytes # (A) 1.17 10*3/uL (0.20-1.00); Neutrophils # (A) 7.68 10*3/uL (1.80-7.70); Neutrophils % (A) 72.5 %; Platelet Count 212 10*3/uL (140-440); RBC 4.54 10*6/uL (4.40-5.60); RDW 13.1 % (11.5-14.5); WBC 10.59 10*3/uL (4.50-10.00)
--- NOTE | 2024-07-08 07:01 | P.PN ---
Subjective Progress Note Date: 07/07/24 This is an 84-year-old male who lives out in the [place] area follows with Dr. Watson in the outpatient setting with a past medical history of glaucoma and some baseline dementia. Patient was noted to be in atrial fibrillation with RVR and sent here for further cardiac evaluation. Patient's medications adjusted and currently rate controlled off of Cardizem drip. Patient noticed to have significant left eye drainage with concerns of infection and was started on antibiotics. Patient reports he has no vision in this eye and is extremely painful and sensitive with significant amounts of drainage. Patient started on antibiotics and consult was placed to ophthalmology although no ophthalmology available as well as infectious disease. Patient is continued on antibiotics and currently awaiting cultures to determine appropriate antibiotics. Patient is showing clinical improvements in the left eye drainage and will continue to monitor closely while awaiting for cultures. Will also have PT/OT therapy evaluate the patient. 07/07/2024 Patient is seen in follow-up this morning with no acute overnight issues noted. Patient currently sleeping although easily arousable maintained on antibiotics with infectious disease following awaiting for finalized cultures to determine discharge antibiotics. If patient requires IV antibiotic therapy, then will need ECF and case management is following in the event this is required. Patient will need close outpatient follow-up with ophthalmology in the outpatient setting. Patient is currently afebrile with no reports of chest pain or shortness of breath. Cardiology following as well and atrial fibrillation currently rate controlled recommend to continue with telemetry monitoring. Review of systems: Constitutional: No reports of fatigue, fever, or chills, reports some continued left eye discomfort and sensitivity to light, with some improvement Cardiovascular: No reports of chest pain or palpitations Respiratory: No reports of shortness of breath or cough GI: No reports of nausea, vomiting, or diarrhea : No reports of dysuria or retention Neurovascular: No reports of weakness or numbness All medications have been reviewed Physical exam: Gen: This is a 84-year-old male who is asleep although easily arousable, alert and oriented x 2 baseline, well-developed, elderly appearing HEENT: Head is atraumatic, normocephalic. Pupils equal, round. Sclerae is anicteric. NECK: Supple. No JVD. No lymphadenopathy. No thyromegaly. LUNGS: Diminished breath sounds bilaterally otherwise clear to auscultation. No wheezes or rhonchi. No intercostal retractions. HEART: S1, S2 are muffled, currently rate controlled on the monitor ABDOMEN: Soft. Bowel sounds are present. No masses. No tenderness. EXTREMITIES: No pedal edema. No calf tenderness. NEUROLOGICAL: Patient is awake, alert and oriented x 2. Cranial nerves 2 through 12 are grossly intact. Assessment: Atrial fibrillation with RVR, currently rate controlled Troponin 0.074, ruled out NSTEMI per cardiology Left eye infection with concerns of periorbital cellulitis, present on admission Glaucoma Possible acute urinary tract infection, present on admission, likely asympto matic bacteriuria as patient is denying symptoms and urine culture is negative Elevated white blood count, trending down History of dementia Hypertension Hyperlipidemia History of osteoarthritis Benign prostatic hypertrophy history GI prophylaxis DVT prophylaxis Full code Plan: Patient is continued on antibiotics in the form of vancomycin along with ceftriaxone with infectious disease following awaiting on cultures to finalize. Blood cultures preliminary thus far negative and awaiting on left I cultures. Urine culture was initiated in the ER and is negative for any growth. Patient denies any urinary symptoms. Continue with eye care and supportive care. Attempted to have ophthalmology e valuate the patient although per on-call there is no lodging facilities manager available to evaluate and will need outpatient follow-up Awaiting cultures to determine discharge antibiotics Recommend PT/OT therapy evaluation and social work is following in the event patient will require IV antibiotics and will require ECF if this is the case to manage antibiotic treatment as patient lives alone Will follow-up on repeat labs Encouraged increase activity as tolerated The impression and plan of care has been dictated by Dorene Marin, Nurse Practitioner as directed. Dr. Patric MD I have performed a history and examination and MDM of this patient, discussed the same with the dictator, and agree with the dictator's assessment and plan as written ,documented as a scribe. Based on total visit time, I have performed more than 50% of the visit. Objective - Vital Signs Vital signs: Vital Signs Temp 97.8 F 07/07/24 07:04 Pulse 50 L 07/07/24 07:04 Resp 20 07/07/24 07:04 BP 155/84 07/07/24 07:04 Pulse Ox 97 07/07/24 07:04 FiO2 Intake & Output 04/10/25 04/11/25 04/11/25 18:59 06:59 18:59 Intake Total 476 250 Balance 476 250 Intake: Intake, IV Titration 250 Amount Vancomycin 1,250 mg In 250 Sodium Chloride 0.9% 250 ml @ 125 mls/hr IVPB Q24H [facility] Rx#:[id number] Oral 476 Other: # Voids 3 3 - Labs CBC & Chem 7: 07/08/24 05:52 07/07/24 03:59 Labs: Abnormal Lab Results - Last 24 Hours (Table) 07/07/24 07/07/24 Range/Units 03:59 03:59 WBC 11.57 H (4.50-10.00) X 10*3/uL RBC 3.95 L (4.40-5.60) X 10*6/uL Hgb 11.5 L (13.0-17.0) g/dL Hct 36.2 L (39.6-50.0) % MCHC 31.8 L (32.0-37.0) g/dL Immature Gran # 0.05 H (0.00-0.04) X 10*3/uL Neutrophils # 8.78 H (1.80-7.70) X 10*3/uL Monocytes # 1.30 H (0.20-1.00) X 10*3/uL Sodium 136 L (137-145) mmol/L Microbiology - Last 24 Hours (Table) 07/04/24 21:26 Blood Culture - Preliminary Blood 07/05/24 14:19 Gram Stain - Preliminary Eye - Left Eye Culture - Preliminary 07/04/24 22:20 Urine Culture - Final Urine,Voided
[2024-07-08 07:12] LABS: African American GFR (CKD) >90 (>60 ml/min/1.73 sqM); Anion Gap 9 mmol/L; Blood Urea Nitrogen 16 mg/dL (9-20); Calcium 8.4 mg/dL (8.4-10.2); Carbon Dioxide 25 mmol/L (22-30); Chloride 102 mmol/L (98-107); Glucose 87 mg/dL (74-99); Magnesium 1.9 mg/dL (1.6-2.3); Non-African American GFR(CKD) 80 (>60 ml/min/1.73 sqM); Potassium 3.8 mmol/L (3.5-5.1); Sodium 136 mmol/L (137-145)
[2024-07-08] MEDS: METOPROLOL SUCCINATE (ER) 25 MG TAB.ER.24H PO STA (11:58)
--- NOTE | 2024-07-08 13:42 | P.PN ---
Subjective HISTORY OF PRESENT ILLNESS: This is an 84-year-old male patient of Dr. Pagan with past medical history of coronary artery disease with prior angioplasty and stent placement of the circumflex coronary artery, hypertension, dyslipidemia, paroxysmal atrial fibrillation. We have been asked to evaluate the patient for atrial fibrillation. Patient initially presented to [facility]. Patient states that he went into the hospital due to a left eye infection that started 3 to 4 days ago. He also has a history of glaucoma. He states he has had some chest pain on the right side and lateral chest that has been chronic and comes and goes. He denies shortness of breath. No dizziness or syncopal episodes. He does complain of headache. No palpitations. He has chronic lower extremity edema that is not worsening. He states that he would not be in the hospital if he had not come in for his eye infection. Patient apparently was found to be in A-fib with RVR and transferred to [facility]. Patient remains in atrial fibrillation with controlled rate. Blood pressure 121/82, heart rate is in the 80s and remains in atrial fi brillation. Patient is seen today in the emergency center waiting for a bed on the cardiac stepdown unit. Patient has been started on heparin drip and Eliquis on hold. -EKG: Atrial fibrillation with ventricular rate of 79, atrial fibrillation with ventricular rate of 107, atrial fibrillation with ventricular rate of 99. -Chest x-ray: -Laboratory studies: WBC 13.2, hemoglobin 13, sodium 135, potassium 4, BUN 25 and creatinine 0.9. Troponin 0.06, 0.07, 0.05. Urine positive for UTI. -Home cardiac medications: -Lexiscan Cardiolite stress test performed at [facility] on 11/30/2023 revealed no evidence of reversible ischemia. - Echocardiogram performed 09/20/2020 revealed EF 55%, mild MR, mild TR. -Cardiac catheterization performed 09/20/2020 revealed nondominant large circumflex proximal and mid lesion of 90%, LAD 35 to 40% mid portion and some selective injection of RCA shows a 40% lesion. Patient subsequently underwent stenting of the proximal and mid circumflex with [place] on same date. 07/06/2024 Patient examined this morning at the bedside. Patient currently denies chest pain or pressure. She denies shortness of breath. Vital signs are stable. Patient converted to sinus mechanism and is maintaining sinus mechanism at the time of examination. 07/07/2024 Patient examined this morning at bedside. Patient currently denies chest pain or pressure. He denies shortness of breath. Vital signs are stable. 07/08/2024 Cardiology was reconsulted as patient went into A-fib with RVR. He was transferred from N to 3 . Patient was started on IV Cardizem. Patient remains in atrial fibrillation with a heart rate in the 80s at the time of examination. His IV Cardizem is infusing at 5 mg an hour. He complains of a headache at the time of examination. PHYSICAL EXAM: VITAL SIGNS: Reviewed. GENERAL: Well-developed in no acute distress. NECK: Supple. No JVD or thyromegaly LUNGS: Respirations even and unlabored. Lungs essentially clear to auscultation bilaterally. HEART: Irregular rate and rhythm. S1 and S2 heard. EXTREMITIES: Normal range of motion. No clubbing or cyanosis. Peripheral pulses intact. No lower extremity edema ASSESSMENT: Paroxysmal atrial fibrillation Elevated troponin, type II [place] secondary to oxygen supply/demand mismatch secondary to A-fib with RVR Left eye cellulitis Possible urinary tract infection CAD with prior angioplasty and stent placement of the circumflex Hypertension Dyslipidemia PLAN: Discontinue IV Cardizem Increase metoprolol succinate to 50 mg twice a day. Given additional dose of 25 mg now Continue additional cardiac medications including Eliquis, aspirin, Lipitor, Imdur, losartan Continue telemetry monitoring Further recommendations pending patient course Nurse practitioner note has been reviewed by physician. Signing provider agrees with the documented findings, assessment, and plan of care documented by ASSEMBLER W[employer] WASH as a scribe. Objective - Vital Signs Vital signs: Vital Signs Temp 97.6 F 07/07/24 23:53 Pulse 63 07/08/24 12:00 Resp 18 07/08/24 12:00 BP 143/78 07/08/24 12:00 Pulse Ox 96 07/08/24 12:00 FiO2 21 07/07/24 15:40 Intake & Output 07/07/24 07/08/24 07/08/24 18:59 06:59 18:59 Intake Total 23.833 360 Output Total 400 200 Balance -376.167 160 Weight 67.3 kg Intake: Intake, IV Titration 23.833 Amount Diltiazem 125 mg In 23.833 Sodium Chloride 0.9% 100 ml @ 10 MG/HR 10 mls/hr IV .[id number] [facility] Rx#: [id number] Oral 360 Output: Urine 400 200 Other: Voiding Method Toilet Toilet # Voids 1 - Labs CBC & Chem 7: 07/08/24 05:52 07/08/24 05:52 Labs: Abnormal Lab Results - Last 24 Hours (Table) 07/08/24 07/08/24 Range/Units 05:52 05:52 WBC 10.59 H (4.50-10.00) 10*3/uL Monocytes # 1.17 H (0.20-1.00) 10*3/uL Sodium 136 L (137-145) mmol/L Microbiology - Last 24 Hours (Table) 07/04/24 21:26 Blood Culture - Preliminary Blood 07/05/24 14:19 Gram Stain - Preliminary Eye - Left Eye Culture - Preliminary Coagulase Negative Staph
[2024-07-08] MEDS ORDERED: BUTALB/APAP/CAFF 50-325-40MG TAB PO PRN (13:49)
[2024-07-08] MEDS: LORATADINE 10 MG TAB PO SCH (14:32)
[2024-07-08] MEDS: FLUTICASONE NASAL 50MCG/SPRAY 16GM BTL EA NOSTRIL SCH (14:32)
[2024-07-08] MEDS: ERYTHROMYCIN 5 MG/GM OPHTH OINT 3.5 GM TUBE LEFT EYE SCH (14:32)
[2024-07-08] MEDS: METOPROLOL SUCCINATE (ER) 50 MG TAB.ER.24H PO SCH (20:43)
[2024-07-08] MEDS: VANCOMYCIN TROUGH DUE 1 EACH MISC MISCELLANE ONE (20:45)
[2024-07-09] MEDS: METOPROLOL TARTRATE 50 MG TAB PO STA (02:29)
--- NOTE | 2024-07-09 05:18 | P.PN ---
Subjective Progress Note Date: 07/08/24 This is an 84-year-old male who lives out in the [place] area follows with Dr. Watson in the outpatient setting with a past medical history of glaucoma and some baseline dementia. Patient was noted to be in atrial fibrillation with RVR and sent here for further cardiac evaluation. Patient's medications adjusted and currently rate controlled off of Cardizem drip. Patient noticed to have significant left eye drainage with concerns of infection and was started on antibiotics. Patient reports he has no vision in this eye and is extremely painful and sensitive with significant amounts of drainage. Patient started on antibiotics and consult was placed to ophthalmology although no ophthalmology a vailable as well as infectious disease. Patient is continued on antibiotics and currently awaiting cultures to determine appropriate antibiotics. Patient is showing clinical improvements in the left eye drainage and will continue to monitor closely while awaiting for cultures. Will also have PT/OT therapy evaluate the patient. 07/07/2024 Patient is seen in follow-up this morning with no acute overnight issues noted. Patient currently sleeping although easily arousable maintained on antibiotics with infectious disease following awaiting for finalized cultures to determine discharge antibiotics. If patient requires IV antibiotic therapy, then will need ECF and case management is following in the event this is required. Patient will need close outpatient follow-up with ophthalmology in the outpatient setting. Patient is currently afebrile with no reports of chest pain or shortness of breath. Cardiology following as well and atrial fibrillation currently rate controlled recommend to continue with telemetry monitoring. 07/08/2024 Patient is evaluated today in follow up. Resting in bed comfortably. His main complaint is a migraine type headache 8/10 with photophobia. He complains of sinus pressure and headache in the frontal lobe region. Remains on IV ceftriaxone and IV vancomycin. Erythromycin ointment will be added in addition to moxifloxacin eye gtts. Eye culture showing coagulase negative staph and per micro lab the microsensitivities are pending. Patient went into atrial fibrillation with RVR overnight and was placed on IV cardizem which is currently infusing at 5 mg per hour. Review of systems: Constitutional: No reports of fatigue, fever, or chills, reports some continued left eye discomfort and sensitivity to light, with some improvement Cardiovascular: No reports of chest pain or palpitations Respiratory: No reports of shortness of breath or cough GI: No reports of nausea, vomiting, or diarrhea : No reports of dysuria or retention Neurovascular: No reports of weakness or numbness All medications have been reviewed Physical exam: Gen: This is a 84-year-old male who is asleep although easily arousable, alert and oriented x 2 baseline, well-developed, elderly appearing HEENT: Head is atraumatic, normocephalic. Pupils equal, round. Sclerae is an icteric. NECK: Supple. No JVD. No lymphadenopathy. No thyromegaly. LUNGS: Diminished breath sounds bilaterally otherwise clear to auscultation. No wheezes or rhonchi. No intercostal retractions. HEART: S1, S2 are muffled, currently rate controlled on the monitor ABDOMEN: Soft. Bowel sounds are present. No masses. No tenderness. EXTREMITIES: No pedal edema. No calf tenderness. NEUROLOGICAL: Patient is awake, alert and oriented x 2. Cranial nerves 2 through 12 are grossly intact. Assessment: Atrial fibrillation with RVR, currently rate controlled Troponin 0.074, ruled out NSTEMI per cardiology Left eye infection with concerns of periorbital cellulitis, present on admission Glaucoma Possible acute urinary tract infection, present on admission, likely asymptomatic bacteriuria as patient is denying symptoms and urine culture is negative Elevated white blood count, trending down History of dementia Hypertension Hyperlipidemia History of osteoarthritis History of CAD with prior stenting Benign prostatic hypertrophy history GI prophylaxis DVT prophylaxis Full code Plan: Patient is continued on antibiotics in the form of vancomycin along with ceftriaxone with infectious disease following awaiting on cultures to finalize. Blood cultures preliminary thus far negative and awaiting the microsensitivities of the left eye culture. Urine culture was initiated in the ER and is negative for any growth. Patient denies any urinary symptoms. Continue with eye care and supportive care. Attempted to have ophthalmology evaluate the patient although per on-call there is no manufacturing plant manager available to evaluate and will need outpatient follow-up Awaiting cultures to determine discharge antibiotics Add fioricet, flonase and claritin for sinusitis and migraine. Recommend PT/OT therapy evaluation and social work is following in the event patient will require IV antibiotics and will require ECF if this is the case to manage antibiotic treatment as patient lives alone Will follow-up on repeat labs Encouraged increase activity as tolerated The impression and plan of care has been dictated by Leslie Henderson, Nurse Practitioner as directed. Dr. Patric MD I have performed a history and examination and MDM of this patient, discussed the same with the dictator, and agree with the dictator's assessment and plan as written ,documented as a scribe. Based on total visit time, I have performed more than 50% of the visit. Objective - Vital Signs Vital signs: Vital Signs Temp 98.2 F 07/08/24 16:10 Pulse 139 H 07/09/24 02:34 Resp 16 07/09/24 02:34 BP 154/92 07/09/24 02:34 Pulse Ox 97 07/09/24 02:34 FiO2 21 07/07/24 15:40 Intake & Output 07/08/24 07/08/24 07/09/24 06:59 18:59 06:59 Intake Total 23.833 360 Output Total 400 200 150 Balance -376.167 160 -150 Weight 67.3 kg Intake: Intake, IV Titration 23.833 Amount Diltiazem 125 mg In 23.833 Sodium Chloride 0.9% 100 ml @ 10 MG/HR 10 mls/hr IV .[id number] [facility] Rx#: [id number] Oral 360 Output: Urine 400 200 150 Other: Voiding Method Toilet Toilet Toilet # Voids 1 - Labs CBC & Chem 7: 07/08/24 05:52 07/08/24 05:52 Labs: Abnormal Lab Results - Last 24 Hours (Table) 07/08/24 07/08/24 Range/Units 05:52 05:52 WBC 10.59 H (4.50-10.00) 10*3/uL Monocytes # 1.17 H (0.20-1.00) 10*3/uL Sodium 136 L (137-145) mmol/L Microbiology - Last 24 Hours (Table) 07/04/24 21:26 Blood Culture - Preliminary Blood Assessment and Plan Time with Patient: Less than 30
[2024-07-09 06:07] LABS: Basophils # (A) 0.05 10*3/uL (0.00-0.10); Basophils % (A) 0.3 %; Eosinophils # (A) 0.12 10*3/uL (0.04-0.35); Eosinophils % (A) 0.8 %; HCT 42.4 % (39.6-50.0); HGB 14.1 g/dL (13.0-17.0); Lymphocytes # (A) 1.99 10*3/uL (0.90-5.00); Lymphocytes % (A) 13.9 %; MCH 29.7 pg (27.0-32.0); MCHC 33.3 g/dL (32.0-37.0); MCV 89.3 fL (80.0-97.0); Mean Platelet Volume 10.5 fL (9.5-12.2); Monocytes # (A) 1.18 10*3/uL (0.20-1.00); Monocytes % (A) 8.2 %; Neutrophils # (A) 10.95 10*3/uL (1.80-7.70); Neutrophils % (A) 76.4 %; Platelet Count 256 10*3/uL (140-440); RBC 4.75 10*6/uL (4.40-5.60); RDW 13.1 % (11.5-14.5); WBC 14.35 10*3/uL (4.50-10.00)
[2024-07-09 06:20] LABS: African American GFR (CKD) >90 (>60 ml/min/1.73 sqM); Non-African American GFR(CKD) 79 (>60 ml/min/1.73 sqM)
[2024-07-09 06:25] LABS: African American GFR (CKD) >90 (>60 ml/min/1.73 sqM); Anion Gap 10 mmol/L; Blood Urea Nitrogen 18 mg/dL (9-20); Calcium 8.9 mg/dL (8.4-10.2); Carbon Dioxide 24 mmol/L (22-30); Chloride 104 mmol/L (98-107); Glucose 103 mg/dL (74-99); Non-African American GFR(CKD) 78 (>60 ml/min/1.73 sqM); Potassium 3.8 mmol/L (3.5-5.1); Sodium 138 mmol/L (137-145)
[2024-07-09] MEDS: METOPROLOL SUCCINATE (ER) 25 MG TAB.ER.24H PO STA (11:24)
[2024-07-09] MEDS: VANCOMYCIN 1,250 MG in SODIUM CHLORIDE 0.9% 250 ML IVPB SCH (11:45)
--- NOTE | 2024-07-09 12:18 | P.PN ---
Subjective HISTORY OF PRESENT ILLNESS: This is an 84-year-old male patient of Dr. Pagan with past medical history of coronary artery disease with prior angioplasty and stent placement of the circumflex coronary artery, hypertension, dyslipidemia, paroxysmal atrial fibrillation. We have been asked to evaluate the patient for atrial fibrillation. Patient initially presented to [facility]. Patient states that he went into the hospital due to a left eye infection that started 3 to 4 days ago. He also has a history of glaucoma. He states he has had some chest pain on the right side and lateral chest that has been chronic and comes and goes. He denies shortness of breath. No dizziness or syncopal episodes. He does complain of headache. No palpitations. He has chronic lower extremity edema that is not worsening. He states that he would not be in the hospital if he had not come in for his eye infection. Patient apparently was found to be in A-fib with RVR and transferred to [facility]. Patient remains in atrial fibrillation with controlled rate. Blood pressure 121/82, heart rate is in the 80s and remains in atrial fi brillation. Patient is seen today in the emergency center waiting for a bed on the cardiac stepdown unit. Patient has been started on heparin drip and Eliquis on hold. -EKG: Atrial fibrillation with ventricular rate of 79, atrial fibrillation with ventricular rate of 107, atrial fibrillation with ventricular rate of 99. -Chest x-ray: -Laboratory studies: WBC 13.2, hemoglobin 13, sodium 135, potassium 4, BUN 25 and creatinine 0.9. Troponin 0.06, 0.07, 0.05. Urine positive for UTI. -Home cardiac medications: -Lexiscan Cardiolite stress test performed at [facility] on 11/30/2023 revealed no evidence of reversible ischemia. - Echocardiogram performed 09/20/2020 revealed EF 55%, mild MR, mild TR. -Cardiac catheterization performed 09/20/2020 revealed nondominant large circumflex proximal and mid lesion of 90%, LAD 35 to 40% mid portion and some selective injection of RCA shows a 40% lesion. Patient subsequently underwent stenting of the proximal and mid circumflex with [place] on same date. 07/06/2024 Patient examined this morning at the bedside. Patient currently denies chest pain or pressure. She denies shortness of breath. Vital signs are stable. Patient converted to sinus mechanism and is maintaining sinus mechanism at the time of examination. 07/07/2024 Patient examined this morning at bedside. Patient currently denies chest pain or pressure. He denies shortness of breath. Vital signs are stable. 07/08/2024 Cardiology was reconsulted as patient went into A-fib with RVR. He was transferred from [facility] to [facility]. Patient was started on IV Cardizem. Patient remains in atrial fibrillation with a heart rate in the 80s at the time of examination. His IV Cardizem is infusing at 5 mg an hour. He complains of a headache at the time of examination. 07/09/2024 Patient examined this morning at the bedside. Patient currently denies chest pain or pressure. He denies shortness of breath. He continues to report a headache. He remains in atrial fibrillation with heart rates [place] [id number]. Per nursing, the patient is in the process of being transferred to a tertiary care center for ophthalmology evaluation PHYSICAL EXAM: VITAL SIGNS: Reviewed. GENERAL: Well-developed in no acute distress. NECK: Supple. No JVD or thyromegaly LUNGS: Respirations even and unlabored. Lungs essentially clear to auscultation bilaterally. HEART: Irregular rate and rhythm. S1 and S2 heard. EXTREMITIES: Normal range of motion. No clubbing or cyanosis. Peripheral pulses intact. No lower extremity edema ASSESSMENT: Paroxysmal atrial fibrillation Elevated troponin, type II [place] secondary to oxygen supply/demand mismatch secondary to A-fib with RVR Left eye cellulitis Possible urinary tract infection CAD with prior angioplasty and stent placement of the circumflex Hypertension Dyslipidemia PLAN: Increase metoprolol succinate to 75 mg twice a day Continue additional cardiac medications including Eliquis, aspirin, Lipitor, Imdur, losartan Continue telemetry monitoring Per nursing, plans are underway for transfer to tertiary care center Further recommendations pending patient course Nurse practitioner note has been reviewed by physician. Signing provider agrees with the documented findings, assessment, and plan of care documented by FLATBED PRESS OPERATOR as a scribe. Objective - Vital Signs Vital signs: Vital Signs Temp 98.0 F 07/09/24 12:00 Pulse 129 H 07/09/24 12:00 Resp 18 07/09/24 12:00 BP 123/68 07/09/24 12:00 Pulse Ox 98 07/09/24 12:00 FiO2 21 07/07/24 15:40 Intake & Output 07/08/24 07/09/24 07/09/24 18:59 06:59 18:59 Intake Total 360 236 Output Total 200 150 Balance 160 -150 236 Weight 67 kg Intake: Oral 360 236 Output: Urine 200 150 Other: Voiding Method Toilet Toilet Toilet - Labs CBC & Chem 7: 07/09/24 05:40 07/09/24 05:40 Labs: Abnormal Lab Results - Last 24 Hours (Table) 07/09/24 07/09/24 Range/Units 05:40 05:40 WBC 14.35 H (4.50-10.00) 10*3/uL Immature Gran # 0.06 H (0.00-0.04) 10*3/uL Neutrophils # 10.95 H (1.80-7.70) 10*3/uL Monocytes # 1.18 H (0.20-1.00) 10*3/uL Glucose 103 H (74-99) mg/dL Microbiology - Last 24 Hours (Table) 07/05/24 14:19 Gram Stain - Final Eye - Left Eye Culture - Final Staphylococcus epidermidis
--- NOTE | 2024-07-09 15:55 | P.DS ---
Providers Date of admission: 07/04/24 22:25 Attending physician: Nehemias Zimmer Consults: 07/04/24 22:23 Consult Physician Urgent Consulting Provider: Carrie Mak Consult Reason/Comments: left eye infection Do you want consulting provider notified?: Yes 07/05/24 13:29 Consult Physician Urgent Consulting Provider: Saleem Salinas Consult Reason/Comments: left eye infection Do you want consulting provider notified?: Yes 07/08/24 11:45 Consult Physician Urgent Consulting Provider: Ashly Palacios Consult Reason/Comments: A-Fib RVR Do you want consulting provider notified?: Already Contacted Primary care physician: Jose Juan Watson [facility] Course: Final Diagnosis Atrial fibrillation with RVR, currently rate controlled Troponin 0.074, ruled out NSTEMI per cardiology Left eye infection with concerns of periorbital cellulitis, present on admission Glaucoma Possible acute urinary tract infection, present on admission, likely asymptomatic bacteriuria as patient is denying symptoms and urine culture is negative Elevated white blood count, trending down History of dementia Hypertension Hyperlipidemia History of osteoarthritis History of CAD with prior stenting Benign prostatic hypertrophy history Discharge Disposition Patient is stable for transfer to [facility] under Dr. Lucero for opthmology consultation. Hospital Course This is an 84-year-old male who lives out in the [place] area follows with Dr. Watson in the outpatient setting with a past medical history of glaucoma and some baseline dementia. Initially presented to [facility] with complaints of 3 to 4 day history of infection in his left eye. Patient was noted to be in atrial fibrillation with RVR and sent to [facility] for further cardiac evaluation. He initially required cardizem gtt and heart rate improved. He is anticoagulated with eliquis. Patient noticed to have significant left eye drainage with concerns of infection and was started on antibiotics. Patient reports he has no vision in this eye and is extremely painful and sensitive with significant amounts of drainage. Patient started on antibiotics and consult was placed to ophthalmology although no ophthalmology available. Infectious disease was consulted and patient was started on IV vancomycin and IV ceftriaxione as well as moxifloxacin eye gtts. He complains of sinus pressure and headache in the frontal lobe region which has been controlled with tylenol. Eye culture showing staphylococcus epidermidis. Patient went back into atrial fibrillation with RVR and was placed on IV cardizem and transferred to the cardiac unit. He i s now rate controlled and currently on oral metoprolol has been taken off the cardizem gtt. Cardiology following. Echocardiogram was completed which reveals an ejection fraction of 40% with aortic sclerosis with no stenosis with mild insufficiency. There is mild to moderate mitral regurgitation. Patient did have mildly elevated troponin level which was attributed to the atrial fibrillation. As the patient's eye remains infected preseptal cellulitis and now evidence of possible an endophthalmitis it was recommended for transfer to tertiary care for consultation with ophthalmology and patient was accepted at [facility] under Dr. Lucero. Please see medication reconciliation for a list of current medications. Thank you for allowing us to participate in the care of this patient. The impression and plan of care has been dictated by Leslie Henderson, Nurse Practitioner as directed. Dr. Patric MD I have performed a history and physical examination and medical decision making of this patient, discussed the same with the dictator, and agree with the dictators assessment and plan as written, documented as a scribe. Based on total visit time, I have performed more than 50% of this visit. Plan - Discharge Summary Discharge Rx Participant: No New Discharge Prescriptions: No Action Atorvastatin [Lipitor] 80 mg PO HS Albuterol Nebulized [Ventolin Nebulized] 2.5 mg INHALATION RT-TID PRN PRN Reason: Shortness Of Breath Brimonidine Tartrate [Alphagan P 0.2% Ophth Soln] 1 drop BOTH EYES BID prednisoLONE ACETATE 1% OPHTH [Pred Forte 1%] 1 drop LEFT EYE QID Isosorbide Mononitrate ER [Imdur] 30 mg PO DAILY Memantine [Namenda] 10 mg PO BID Apixaban [Eliquis] 2.5 mg PO BID Timolol 0.5% Ophth Soln [Timoptic 0.5% Ophth Soln] 1 drop BOTH EYES BID Losartan [Cozaar] 25 mg PO DAILY Nitroglycerin Sl Tabs [Nitrostat] 0.4 mg SUBLINGUAL Q5M PRN PRN Reason: Chest Pain Discharge Medication List Apixaban [Eliquis] 2.5 mg PO BID 10/04/23 [History] Atorvastatin [Lipitor] 80 mg PO HS 10/04/23 [History] Memantine [Namenda] 10 mg PO BID 10/04/23 [History] Albuterol Nebulized [Ventolin Nebulized] 2.5 mg INHALATION RT-TID PRN 07/05/24 [History] Brimonidine Tartrate [Alphagan P 0.2% Ophth Soln] 1 drop BOTH EYES BID 07/05/24 [History] Isosorbide Mononitrate ER [Imdur] 30 mg PO DAILY 07/05/24 [History] Losartan [Cozaar] 25 mg PO DAILY 07/05/24 [History] Nitroglycerin Sl Tabs [Nitrostat] 0.4 mg SUBLINGUAL Q5M PRN 07/05/24 [History] Timolol 0.5% Ophth Soln [Timoptic 0.5% Ophth Soln] 1 drop BOTH EYES BID 07/05/24 [History] prednisoLONE ACETATE 1% OPHTH [Pred Forte 1%] 1 drop LEFT EYE QID 07/05/24 [History] Follow up Appointment(s)/Referral(s): Jose Juan Watson MD [Primary Care Provider] - 1-2 days
[2024-07-09] MEDS: METOPROLOL SUCCINATE (ER) 25 MG TAB.ER.24H PO SCH (20:06)
[2024-07-09 21:20] VITALS: BP 151/100; PULSE 129; RESP 16; TEMP 98.3
--- NOTE | 2024-07-09 21:26 | P.PN ---
Subjective Progress Note Date: 07/08/24 Principal diagnosis: Reason for follow-up is left preseptal cellulitis Patient is a 84-year-old male with a past medical history significant for dementia atrial fibrillation hypertension hyperlipidemia osteoarthritis presented initially to the [facility] for left eye infection with the patient was noticed to be A-fib with RVR subsequently has been transferred to [facility], patient did have orbital CT concerning for preseptal cellulitis local culture obtained currently pending. On today's evaluation that is 07/08/2024, patient did not have any fever and d enies any chills, patient is breathing comfortably on room air, patient with no chest pain or cough patient did not have any abdominal pain nausea vomiting or any loose stools, patient has been moved to the telemetry floor because of A-fib has been complaining of some pain to the left eye but mentioned improved with the Tylenol. Patient white count is down to 10.59 creatinine 0.83 Objective - Vital Signs Vital signs: Vital Signs Temp 97.6 F 07/07/24 23:53 Pulse 63 07/08/24 12:00 Resp 18 07/08/24 12:00 BP 143/78 07/08/24 12:00 Pulse Ox 96 07/08/24 12:00 FiO2 21 07/07/24 15:40 Intake & Output 07/07/24 07/08/24 07/08/24 18:59 06:59 18:59 Intake Total 23.833 240 Output Total 400 200 Balance -376.167 40 Weight 67.3 kg Intake: Intake, IV Titration 23.833 Amount Diltiazem 125 mg In 23.833 Sodium Chloride 0.9% 100 ml @ 10 MG/HR 10 mls/hr IV .[id number] [facility] Rx#: [id number] Oral 240 Output: Urine 400 200 Other: Voiding Method Toilet Toilet # Voids 1 - Exam GENERAL DESCRIPTION: An elderly male lying in bed in no distress HEENT: Left eye and periorbital swelling redness slightly decreased no drainage RESPIRATORY SYSTEM: Unlabored breathing , decreased breath sounds at bases HEART: S1 S2 regular rate and rhythm , ABDOMEN: Soft , no tenderness EXTREMITIES: No edema feet - Labs CBC & Chem 7: 07/09/24 05:40 07/09/24 05:40 Labs: Abnormal Lab Results - Last 24 Hours (Table) 07/08/24 07/08/24 Range/Units 05:52 05:52 WBC 10.59 H (4.50-10.00) 10*3/uL Monocytes # 1.17 H (0.20-1.00) 10*3/uL Sodium 136 L (137-145) mmol/L Microbiology - Last 24 Hours (Table) 07/04/24 21:26 Blood Culture - Preliminary Blood 07/05/24 14:19 Gram Stain - Preliminary Eye - Left Eye Culture - Preliminary Coagulase Negative Staph Assessment and Plan (1) Preseptal cellulitis of left eye Current Visit: Yes Status: Acute Code(s): L03.213 - PERIORBITAL CELLULITIS SNOMED Code(s): 737338443 (2) Leukocytosis Current Visit: Yes Status: Acute Code(s): D72.829 - ELEVATED WHITE BLOOD CELL COUNT, UNSPECIFIED SNOMED Code(s): 477999140 Plan: 1patient presented hospital left eye pain swelling redness and drainage in this patient has been diagnosed with a preseptal cellulitis and will need to cover for the gram-positive as well as gram-negative pathogen to be the likely pathogen 2-patient is afebrile patient white count has normalized, local culture growing coagulase-negative staph sensitivities pending patient to continue with the vancomycin pharmacy to dose target of 15, along with Rocephin while waiting for sensitive to finalize Family bedside question answered Dictation was produced using [employer] dictation software. please excuse any grammatical, word or spelling errors. Time with Patient: Less than 30
--- NOTE | 2024-07-09 21:27 | P.PN ---
Subjective Progress Note Date: 07/09/24 Principal diagnosis: Reason for follow-up is left preseptal cellulitis Patient is a 84-year-old male with a past medical history significant for dementia atrial fibrillation hypertension hyperlipidemia osteoarthritis presented initially to the [facility] for left eye infection with the patient was noticed to be A-fib with RVR subsequently has been transferred to [facility], patient did have orbital CT concerning for preseptal cellulitis local culture obtained currently pending. On today's evaluation that is 07/09/2024, Patient is afebrile patient is curre ntly on room air and denies having any shortness of breath, the patient denies any chest pain or cough, the patient denies any nausea vomiting did not have any abdominal pain and no diarrhea, has been complaining of more pain to the left eye still controlled with the Tylenol and noted to have more redness. Patient white count is up to 14.35 creatinine 0.89 Vanco trough is 6.1 Objective - Vital Signs Vital signs: Vital Signs Temp 98.0 F 07/09/24 12:00 Pulse 129 H 07/09/24 12:00 Resp 18 07/09/24 12:00 BP 123/68 07/09/24 12:00 Pulse Ox 98 07/09/24 12:00 FiO2 21 07/07/24 15:40 Intake & Output 07/08/24 07/09/24 07/09/24 18:59 06:59 18:59 Intake Total 360 236 Output Total 200 150 Balance 160 -150 236 Weight 67 kg Intake: Oral 360 236 Output: Urine 200 150 Other: Voiding Method Toilet Toilet Toilet - Exam GENERAL DESCRIPTION: An elderly male lying in bed in no distress HEENT: Left eye and periorbital swelling redness slightly decreased however did have more conjunctival redness RESPIRATORY SYSTEM: Unlabored breathing , decreased breath sounds at bases HEART: S1 S2 regular rate and rhythm , ABDOMEN: Soft , no tenderness EXTREMITIES: No edema feet - Labs CBC & Chem 7: 07/09/24 05:40 07/09/24 05:40 Labs: Abnormal Lab Results - Last 24 Hours (Table) 07/09/24 07/09/24 Range/Units 05:40 05:40 WBC 14.35 H (4.50-10.00) 10*3/uL Immature Gran # 0.06 H (0.00-0.04) 10*3/uL Neutrophils # 10.95 H (1.80-7.70) 10*3/uL Monocytes # 1.18 H (0.20-1.00) 10*3/uL Glucose 103 H (74-99) mg/dL Microbiology - Last 24 Hours (Table) 07/05/24 14:19 Gram Stain - Final Eye - Left Eye Culture - Final Staphylococcus epidermidis Assessment and Plan (1) Preseptal cellulitis of left eye Current Visit: Yes Status: Acute Code(s): L03.213 - PERIORBITAL CELLULITIS SNOMED Code(s): 043904747 (2) Leukocytosis Current Visit: Yes Status: Acute Code(s): D72.829 - ELEVATED WHITE BLOOD CELL COUNT, UNSPECIFIED SNOMED Code(s): 287437029 Plan: 1patient presented hospital left eye pain swelling redness and drainage in this patient has been diagnosed with a preseptal cellulitis and will need to cover for the gram-positive as well as gram-negative pathogen to be the likely pathogen 2-patient is afebrile patient white count slightly up today and the patient noticed to have more conjunctival redness and patient is being considered for transfer to [facility] for ophthalmology evaluation vancomycin dosing to be adjusted up to keep the trough around 15 and monitor clinical course closely question concern answered Dictation was produced using [employer] dictation software. please excuse any grammatical, word or spelling errors. Time with Patient: Less than 30
== END 2024-07-09 23:19 | disposition short-term general hospital (02) | DRG 309 ==
LOC: EC 20:45 → 3SCARD 22:25 → 5NMEDONC 07-05 14:34 → 3SCARD 07-08 01:57
PROVIDERS: ADMIT Hospitalist; ATTEND Hospitalist
PROC: 3E033RZ Introduction of Antiarrhythmic into Peripheral Vein, Percutaneous Approach (ICD-10-PCS; principal; 2024-07-05)
DX: I48.0 Paroxysmal atrial fibrillation (principal); H44.002 Unspecified purulent endophthalmitis, left eye; E78.5 Hyperlipidemia, unspecified; F03.90 Unspecified dementia, unspecified severity, without behavioral disturbance, psychotic disturbance, mood disturbance, and anxiety; I10 Essential (primary) hypertension; L03.213 Periorbital cellulitis; N39.0 Urinary tract infection, site not specified; H40.9 Unspecified glaucoma; M19.90 Unspecified osteoarthritis, unspecified site; I25.10 Atherosclerotic heart disease of native coronary artery without angina pectoris; N40.0 Benign prostatic hyperplasia without lower urinary tract symptoms; Z95.5 Presence of coronary angioplasty implant and graft; Z79.01 Long term (current) use of anticoagulants; Z87.891 Personal history of nicotine dependence; Z79.899 Other long term (current) drug therapy
CPT/HCPCS: 36415; 70480; 71045; 80048; 80053; 80202; 81001; 82565; 83735; 84484; 85025; 85730; 87040; 87070; 87077; 87086; 87186; 87205; 87636; 93005; 93306; 94760; 96365; 96366; 96368; 99285